=== PATIENT | male | born 1945 | race Caucasian/White ===

== ENCOUNTER 2019-05-16 10:32 | Outpatient (RCR) | payer MEDICARE, OTHER | END 2019-08-14 | disposition home or self-care (01) | LOC: ONC 10:32 | PROVIDERS: ATTEND Radiology Radiation Oncology | DX: C61 Malignant neoplasm of prostate (principal) | CPT/HCPCS: 76873; 99205 ==

== ENCOUNTER 2019-10-08 05:33 | Outpatient (RCR) | payer MEDICARE, OTHER ==
[~2019-10-08] VITALS: Ht 177.8 cm; Wt 106.8 kg
[~2019-10-08 05:33] MED LIST: ALLO100T PO; ASPI-586 PO; ATOR40TA70 PO; CHOL100048 PO; CYAN250010 PO; LISI10TA2 PO; MULT-1104 PO; OMEG100032 PO; OMEP20TA7 PO
[2019-10-10] MEDS ORDERED: CIPR-226 PO (11:05)
[2019-10-10] MEDS ORDERED: ACET1TAB43 PO (11:05)
== END 2019-10-08 10:13 | disposition home or self-care (01) ==
LOC: PREOP 05:33
PROVIDERS: ATTEND Radiology Radiation Oncology
DX: Z01.818 Encounter for other preprocedural examination (principal); Z01.812 Encounter for preprocedural laboratory examination; C61 Malignant neoplasm of prostate; Z20.828 Contact with and (suspected) exposure to other viral communicable diseases
CPT/HCPCS: 87635

== ENCOUNTER 2019-10-10 10:30 | Day surgery (SDC) | payer MEDICARE, OTHER ==
[~2019-10-10] VITALS: Ht 177.8 cm; Wt 106.8 kg
[2019-10-10] VITALS (11 sets, daily range): BP systolic 123–149; BP diastolic 71–85
[2019-10-10] MEDS ORDERED: LEVOFLOXACIN 500 MG/100 ML IV 100 ML IV ONE (10:45)
--- NOTE | 2019-10-10 11:00 | Progress Note-Pre Operative ---
Pre-Operative Progress Note H&P Reviewed The H&P was reviewed, patient examined and no changes noted. Date Seen by Provider: Oct 10, 2019 Time Seen by Provider: 10:59 Date H&P Reviewed: Oct 10, 2019 Time H&P Reviewed: :59 Pre-Operative Diagnosis: Prostate cancer cT1c, PSA 3.97, [place] 7 (3+4) JOANN ALVAREZ MD Oct 10, 2019 11:00
[2019-10-10] MEDS ORDERED: ACET1TAB43 PO (11:05)
[2019-10-10] MEDS ORDERED: CIPR-226 PO (11:05)
--- NOTE | 2019-10-10 11:07 | Discharge Inst-Simple/Standard ---
Discharge Inst-Standard Reconcile Patient Problems Problems Reviewed?: Yes Discharge Medications New, Converted or Re-Newed RX: RX Given to Pt/Family Patient Instructions/Follow Up Plan of Care/Instructions/FU: 1) post implant scan at [facility] in cancer center on 11/08/19 at 10:30 a.m. 2) follow up iwht Dr. Guerra 11/13/19 at 11:15 a.m. Activity as Tolerated: Yes Discharge Diet: No Restrictions Other Inst to Patient Please instruct patient on orozco catheter removal. Date of removal to be determined by Dr. Florence. JOANN ALVAREZ MD Oct 10, 2019 11:07
[2019-10-10] MEDS ORDERED: MIDAZOLAM 2 MG/2 ML (VERSED) VIAL ONE (11:24)
[2019-10-10] MEDS ORDERED: proPOfol 200 MG/20 ML (DIPRIVAN) VIAL IV ONE ×2 (11:24→13:44)
[2019-10-10] MEDS ORDERED: ONDANSETRON 4 MG/2 ML (SDV) Z0FRAN ONE (11:24)
[2019-10-10] MEDS ORDERED: DEXAMETHASONE 10 MG/ML (DECADRON) 1 ML VIAL ONE (11:24)
[2019-10-10] MEDS ORDERED: fentaNYL INJECTION 100 MCG/2 ML AMP ONE (11:24)
[2019-10-10] MEDS ORDERED: LIDOCAINE PF 2% 5 ML (XYLOCAINE) VIAL ONE (11:24)
[2019-10-10] MEDS ORDERED: SEVOFLURANE (ULTANE) 15 ML INHAL SOLN ONE ×5 (11:24→13:43)
[2019-10-10] MEDS: LACTATED RINGERS 1,000 ML IV PRN ×2 (11:51→13:13)
--- OUTSIDE RECORDS SUMMARY | 2019-10-10 11:55 | XMS REPORT | CCD ---
Author Author HELADIO VILLALOBOS JR Organization Unknown Address [address] [place] [address] Care Team Providers Care Central Supply Aide Name Role Phone ROSA HYDE, KAREN SANTANA Attphys Allergies Allergy Code Allergy Type Reaction Status No Known Drug Allergies 0 Drug allergy Active Active Medications Unknown or Not Available. Problems Unknown or Not Available. Procedures Procedure Code Procedure Type Date Arthrs kne surg w/meniscectomy med/lat w/shvg; (-RT Ri ght side of body) 79922 CPT 09/10/2016 Results Unknown or Not Available. Function Status Unknown or Not Available. History of Immunizations Immunization Code Date Tdap 115 01/06/2015 zoster 121 12/04/2013 Pneumococcal conjugate PCV 13 133 12/26 Influenza, high dose seasonal 135 11/26 Influenza, high dose seasonal 135 /0 11/2013 Influenza, high dose seasonal 135 12/26 Plan of Treatment Unknown or Not Available. Social History Smoking Status Code Start Date End Date Never smoker [id number] Vital Signs Vital Sign Value Unit Date/Time Recent/I nitial? BMI (Body Mass Index) 33.47 kg/m2 09/09/2016 10 :21 Initial VS Weight Measured 240 [lb_av] 09/09/2016 10:21 Initial VS Height 71 [in_i] 09/09/2016 10:21 Initi al VS BSA (Body Surface Area) 2.34 m2 09/09/2016 10:21 Initial VS Respiratory Rate 8 /min 09/10/2016 07:54 Initial VS Heart Rate 72 /min 09/10/2016 07:54 I nitial VS O2 % BldC Oximetry 92 % 09/10/2016 07:54 Initial VS BP Systolic 79 mm[Hg] 09/10/2016 07:55 Initial VS BP Diastolic 45 mm[Hg] 09/10/2016 07:55 Initial VS BP Systolic 105 mm[Hg] 09/10/2016 08:37 Most Recent VS BP Diastolic 61 mm[Hg] 09/10/2016 08:37 Most Recent VS Respiratory Rate 16 /min 09/10/2016 08:37 Most Recent VS Heart Rate 66 /min 09/10/2016 08:37 M ost Recent VS O2 % BldC Oximetry 97 % 09/10/2016 08:37 Most Recent VS Function Status Unknown or Not Available. Goals Unknown or Not Available. ASSESSMENTS Unknown or Not Available. Health Concerns Section Unknown or Not Available.
--- OUTSIDE RECORDS SUMMARY | 2019-10-10 11:56 | XMS REPORT ---
Author Author Shahbaz MANZANARES Organization [facility] Address [address] [place] [id number] Care Team Providers Care Diplomatic Officer Name Role Phone DILMA MANZANARES PCP Tomy Rosado PreferredProvider Allergies and Adverse Reactions Name Reaction Notes NO KNOWN DRUG ALLERGIES Plan of Treatment Planned Activity Comments Planned Date Planned Time Plan/Goal BASIC METABOLIC PANEL 03/30/2016 12:00 AM URIC ACID. 03/30/2016 12:00 AM URIC ACID. 03/30/2016 12:00 AM Basic metabolic panel 06/29/2013 12:00 AM URINALYSIS W/MICRO C&S IF IND 07/05/2019 12:00 AM Medications Active Name Start Date Estimated Completion Date SIG Co mments aspirin 81 mg oral tablet,delayed release (DR/EC) take 1 tablet (81 mg) by oral route once daily allopurinol 100 mg oral tablet 03/23/2018 TAKE 1 TAB LET BY MOUTH EVERY DAY lisinopril 10 mg oral tablet 03/23/2018 TAKE 1 TABLE T BY MOUTH EVERY DAY lisinopril 10 mg oral tablet 04/16/2019 TAKE 1 TABLE T BY MOUTH EVERY DAY atorvastatin 20 mg oral tablet 05/14/2019 T BROOKS 1 TABLET BY MOUTH EVERY NIGHT AT BEDTIME allopurinol 100 mg oral tablet 06/12/2019 TAKE 1 TAB LET BY MOUTH EVERY DAY Cipro 500 mg oral tablet 07/05/2019 07/15/2019 take 1 tablet (500 mg) by oral route 2 times per day for 10 days Name Start Date Expiration Date SIG Comments Shingles Vaccine 10/03/2009 10/04/2009 may administer shingles vaccine azithromycin 500 mg oral tablet 12/23/2010 12/30/2010 take 1 tablet (500 mg) by oral route once daily for 7 days Bactrim DS 800-160 mg oral tablet 04/20/2011 04/27/2011 take 1 tablet by oral route every 12 hours for 7 days triamcinolone acetonide 0.1 % topical cream 10/28/20112011 apply a thin layer to the affected area(s) by topical route 2 times per day Zithromax Z-Faisal 250 mg oral tablet 03/30/2012 04/04/2012 take 2 tablets (500 mg) by oral route once daily for 1 day then 1 tablet (250 mg) by oral route once daily for 4 days amoxicillin 500 mg oral capsule 07/29/2014 08/08/2014 take 1 capsule (500 mg) by oral route 3 times per day for 10 days Medrol (Faisal) 4 mg oral tablets,dose pack 07/29/2014 take as directed Zithromax Z-Faisal 250 mg oral tablet 12/30/2014 01/04/2015 take 2 tablets (500 mg) by oral route once daily for 1 day then 1 tablet (250 mg) by oral route once daily for 4 days amoxicillin 875 mg oral tablet 03/13/2017 t brooks 1 tablet (875 mg) by oral route every 12 hours for 10 days Tessalon Perles 100 mg oral capsule 03/13/2017 take 1 capsule (100 mg) by oral route 3 times per day as needed for cough Medrol (Faisal) 4 mg oral tablets,dose pack 03/13/2017 take as directed tamsulosin 0.4 mg oral capsule,extended release 24hr 06/22/2017 take 1 capsule (0.4 mg) by oral route once daily 1/2 hour following the same meal each day for 30 days omeprazole 20 mg oral tablet,delayed release (DR/EC) 07/18/2018 08/01/2018 take 1 tablet by oral route 2 times a day for 14 days amoxicillin 500 mg oral capsule 07/18/2018 08/01/2018 take 1 capsule (500 mg) by oral route every 12 hours for 14 days clarithromycin 500 mg oral tablet 07/18/2018 08/01/2018 take 1 tablet (500 mg) by oral route every 12 hours for 14 days Cipro 500 mg oral tablet 10/12/2018 10/14/2018 take 1 tablet (500 mg) by oral route 2 times per day for 2 days Discontinued Name Start Date Discontinued Date SIG Comments Benicar HCT 40-25 mg oral tablet 09/07/2009 10/03/2009 take 1 tablet by oral route once daily for 90 days ibuprofen 200 mg oral tablet 10/28/2011 prn aspirin 325 mg oral tablet 10/03/2009 05/02/2013 take 1 tablet by oral route daily hydrocodone-acetaminophen 10-500 mg oral tablet 10/28/19 12 03/29 to 1 q4h prn Doc-Q-Lace 100 mg oral capsule 10/28/2011 t brooks 1 capsule (100 mg) by oral route 2 times per day as needed Benicar 40 mg oral tablet 10/03/2009 10/24/2009 take 1 tablet (40 mg) by oral route once daily atenolol-chlorthalidone 50-25 mg oral tablet 10/24/200910/27 take 1 tablet by oral route once daily Medrol (Faisal) 4 mg oral tablets,dose pack 03/30/2012 04/23/2013 take as directed Sunscreen SPF 30 05/06/2014 07/29/2014 apply q2h while outdoors, q1h if swimming or sweating Vaseline 05/06/2014 07/29/2014 apply to treated areas Lipitor 20 mg oral tablet 01/02/2015 03/26/2016 TAKE 1 TABLET (20 MG) BY ORAL ROUTE ONCE DAILY AT BEDTIME duplicate Problem List Description Status Onset Arthritis unspecified Active Atrial Septal Defect, Ostium Secundum Type Active Benign Hypertrophy of Prostate (BPH) Active Cardiomegaly Active degenerative disk disease Active Hypertension, Benign Essential Active lumbar back pain Active 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 Venous insufficiency Active Gout Active Malignant melanoma of skin; site unspecified Active 05/10/2013 Diabetes Mellitus, Type II Active 12/19/2013 Benign Neoplasm Of Skin Of Lower Limb Active Actinic keratosis Active 05/06/2014 Seborrheic keratoses Active 05/06/2014 Benign neoplasm of skin of back Active 05/06/19 15 Benign Neoplasm Of Scalp Active 05/06/2014 Scar Active 05/06/2014 Lipoma Active 05/14/2014 Lentigo Active 12/13/2014 Dyspepsia Active 07/04/2018 Dysphagia Active 07/04/2018 Colon cancer screening Active 07/04/2018 Vital Signs Date Time BP-Sys(mm[Hg] BP-Sowmya(mm[Hg]) HR(bpm) RR(rpm) Temp WT HT HC BMI BSA BMI Percentile O2 Sat(%) 03/12/2019 9:13:00 AM 124 mm[Hg] 86 mm[Hg] 76 {beats}/min 18 rpm 97.7 F 252 lbs 70 in 36.1579 kg/m2 2.376 m2 96 % 02/20/2019 11:47:00 AM 130 mm[Hg] 57 mm[Hg] 65 {beats}/min 20 rpm 97.6 F 252 lbs 70 in 36.16 kg/m2 2.38 m2 01/12/2019 2:10:00 PM 123 mm[Hg] 74 mm[Hg] 86 {beats}/min 20 rpm 97.2 F 247 lbs 70 in 35.4404 kg/m2 2.3523 m2 01/09/2019 2:24:00 PM 120 mm[Hg] 76 mm[Hg] 100 {beats}/min 18 rpm 97.5 F 247 lbs 71 in 34.45 kg/m2 2.37 m2 96 % 12/28/2018 9:36:00 AM 128 mm[Hg] 74 mm[Hg] 99 {beats}/min 18 rpm 97.3 F 255.5 lbs 71 in 35.6347 kg/m2 2.4095 m2 98 % 10/24/2018 3:00:00 PM 130 mm[Hg] 88 mm[Hg] 111 {beats}/min 18 rpm 97.8 F 275 lbs 71 in 38.35 kg/m2 2.50 m2 96 % 10/12/2018 10:22:00 AM 130 mm[Hg] 78 mm[Hg] 98 {beats}/min 18 rpm 98.2 F 275 lbs 71 in 38.3543 kg/m2 2.4997 m2 96 % 10/02/2018 9:56:00 AM 116 mm[Hg] 72 mm[Hg] 85 {beats}/min 18 rpm 97.7 F 275 lbs 71 in 38.35 kg/m2 2.50 m2 94 % 07/04/2018 2:26:00 PM 124 mm[Hg] 65 mm[Hg] 81 {beats}/min 20 rpm 97.4 F 275 lbs 71 in 38.35 kg/m2 2.50 m2 03/27/2018 4:03:00 PM 135 mm[Hg] 82 mm[Hg] 82 {beats}/min 18 rpm 97.5 F 277.125 lbs 71 in 38.6507 kg/m2 2.5094 m2 95 % 03/23/2018 8:14:00 AM 122 mm[Hg] 68 mm[Hg] 64 {beats}/min 18 rpm 98.2 F 274 lbs 70 in 39.31 kg/m2 2.48 m2 97 % 08/30/2017 11:15:00 AM 122 mm[Hg] 82 mm[Hg] 67 {beats}/min 18 rpm 98.1 F 254.375 lbs 70 in 36.4986 kg/m2 2.3872 m2 96 % 07/13/2017 9:02:00 AM 118 mm[Hg] 68 mm[Hg] 95 {beats}/min 18 rpm 98.1 F 267 lbs 70 in 38.31 kg/m2 2.45 m2 95 % 06/01/2017 3:07:00 PM 128 mm[Hg] 82 mm[Hg] 65 {beats}/min 18 rpm 266.25 lbs 70 in 38.2025 kg/m2 2.4423 m2 95 % 03/31/2017 9:58:00 AM 133 mm[Hg] 68 mm[Hg] 64 {beats}/min 18 rpm 97.8 F 263.5 lbs 70 in 37.81 kg/m2 2.43 m2 96 % 03/13/2017 1:17:00 PM 130 mm[Hg] 60 mm[Hg] 96 {beats}/min 98.5 F 266 lbs 94 % 03/26/2016 8:16:00 AM 132 mm[Hg] 72 mm[Hg] 72 {beats}/min 18 rpm 97.4 F 240.375 lbs 70 in 34.49 kg/m2 2.32 m2 98 % 12/30/2014 8:49:00 AM 124 mm[Hg] 74 mm[Hg] 56 {beats}/min 18 rpm 96.9 F 234.125 lbs 70 in 33.5931 kg/m2 2.2902 m2 97 % 12/25/2014 8:54:00 AM 112 mm[Hg] 65 mm[Hg] 76 {beats}/min 16 rpm 98.1 F 231 lbs 70 in 33.14 kg/m2 2.27 m2 12/11/2014 1:19:00 PM 111 mm[Hg] 67 mm[Hg] 73 {beats}/min 18 rpm 98.4 F 232 lbs 70 in 33.2882 kg/m2 2.2798 m2 07/29/2014 9:01:00 AM 119 mm[Hg] 71 mm[Hg] 53 {beats}/min 20 rpm 97.4 F 232.4 lbs 71 in 32.41 kg/m2 2.30 m2 96 % 05/28/2014 9:34:00 AM 124 mm[Hg] 76 mm[Hg] 62 {beats}/min 20 rpm 97.4 F 233 lbs 71 in 32.4966 kg/m2 2.3009 m2 05/14/2014 2:53:00 PM 108 mm[Hg] 69 mm[Hg] 76 {beats}/min 16 rpm 98.3 F 235.312 lbs 71 in 32.82 kg/m2 2.31 m2 05/06/2014 9:27:00 AM 136 mm[Hg] 68 mm[Hg] 18 rpm 97.9 F 05/02/2014 2:53:00 PM 108 mm[Hg] 78 mm[Hg] 81 {beats}/min 16 rpm 97.7 F 253 lbs 71 in 35.286 kg/m2 2.3977 m2 97 % 12/19/2013 9:47:00 AM 130 mm[Hg] 70 mm[Hg] 64 {beats}/min 18 rpm 97.4 F 253.375 lbs 71 in 35.34 kg/m2 2.40 m2 98 % 08/24/2013 10:04:00 AM 122 mm[Hg] 78 mm[Hg] 60 {beats}/min 16 rpm 97.5 F 265 lbs 71 in 36.9596 kg/m2 2.4539 m2 08/10/2013 12:58:00 PM 132 mm[Hg] 75 mm[Hg] 65 {beats}/min 18 rpm 98 F 260.312 lbs 71 in 36.31 kg/m2 2.43 m2 05/18/2013 11:02:00 AM 16 rpm 98 F 264 lbs 71 in 36.8201 kg/m2 2.4492 m2 05/02/2013 10:22:00 AM 130 mm[Hg] 80 mm[Hg] 80 {beats}/min 16 rpm 98.3 F 269 lbs 71 in 37.52 kg/m2 2.47 m2 04/23/2013 2:13:00 PM 130 mm[Hg] 66 mm[Hg] 69 {beats}/min 18 rpm 97.8 F 270.375 lbs 71 in 37.7093 kg/m2 2.4786 m2 97 % 10/28/2011 3:18:00 PM 148 mm[Hg] 72 mm[Hg] 68 {beats}/min 18 rpm 98.9 F 276.125 lbs 71 in 38.51 kg/m2 2.50 m2 04/20/2011 4:19:00 PM 136 mm[Hg] 74 mm[Hg] 68 {beats}/min 18 rpm 97.5 F 257.375 lbs 71 in 35.8962 kg/m2 2.4183 m2 02/04/2011 3:15:00 PM 128 mm[Hg] 90 mm[Hg] 69 {beats}/min 97.9 F 2 60.25 lbs 96 % 12/23/2010 10:25:00 AM 125 mm[Hg] 80 mm[Hg] 72 {beats}/min 97.7 F 263 lbs 96 % 11/19/2010 11:08:00 AM 130 mm[Hg] 90 mm[Hg] 92 {beats}/min 18 rpm 97.8 F 255.125 lbs 96 % 11/12/2010 10:37:00 AM 152 mm[Hg] 90 mm[Hg] 84 {beats}/min 98.3 F 256 lbs 10/22/2010 10:35:00 AM 125 mm[Hg] 70 mm[Hg] 68 {beats}/min 18 rpm 97.8 F 252.375 lbs 71 in 35.1988 kg/m2 2.3947 m2 97 % 07/27/2010 10:12:00 AM 150 mm[Hg] 90 mm[Hg] 61 {beats}/min 18 rpm 98 F 259 lbs 70 in 37.16 kg/m2 2.41 m2 96 % 01/26/2010 1:54:00 PM 120 mm[Hg] 80 mm[Hg] 58 {beats}/min 18 rpm 97.6 F 272.125 lbs 70 in 39.0455 kg/m2 2.4691 m2 96 % 10/28/2009 1:42:00 PM 110 mm[Hg] 78 mm[Hg] 61 {beats}/min 18 rpm 97.3 F 262.5 lbs 70 in 37.66 kg/m2 2.43 m2 95 % 10/24/2009 1:24:00 PM 120 mm[Hg] 88 mm[Hg] 96 {beats}/min 20 rpm 98 F 258.5 lbs 70 in 37.0905 kg/m2 2.4065 m2 95 % 10/03/2009 2:24:00 PM 120 mm[Hg] 90 mm[Hg] 90 {beats}/min 20 rpm 98.6 F 255.5 lbs 70 in 36.66 kg/m2 2.39 m2 96 % 09/05/2009 8:34:00 AM 110 mm[Hg] 76 mm[Hg] 68 {beats}/min 18 rpm 26 7 lbs 70 in 38.3101 kg/m2 2.4457 m2 Social History Name Description Comments Alcohol Use - Rare 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, 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 Tobacco Never smoker History of Procedures Date Ordered Description Order Status 12/30/2014 12:00 AM COMPLETE CBC W/AUTO DIFF WBC Reviewed 12/30/2014 12:00 AM COMPREHEN METABOLIC PANEL Reviewed 12/30/2014 12:00 AM LIPID PANEL Reviewed 12/30/2014 12:00 AM GLYCOSYLATED HEMOGLOBIN TEST Reviewed 12/30/2014 12:00 AM ASSAY OF BLOOD/URIC ACID Reviewed 01/06/2015 12:00 AM Fluzone MEDICARE Only Reviewed 01/06/2015 12:00 AM TDAP VACCINE 7 YRS/> IM Reviewed 03/26/2016 12:00 AM COMPREHEN METABOLIC PANEL Reviewed 03/26/2016 12:00 AM LIPID PANEL Reviewed 03/26/2016 12:00 AM GLYCOSYLATED HEMOGLOBIN TEST Reviewed 03/26/2016 12:00 AM ASSAY OF PSA TOTAL Reviewed 03/26/2016 12:00 AM ASSAY OF BLOOD/URIC ACID Reviewed 03/26/2016 12:00 AM ASSAY OF URINE/URIC ACID Reviewed 03/26/2016 12:00 AM ALBUMIN URINE MICROALBUMIN QUANTIATIVE R eviewed 11/19/2010 12:00 AM DRAIN/INJ JOINT/BURSA W/O US Reviewed 03/31/2017 12:00 AM COMPLETE CBC W/AUTO DIFF WBC Reviewed 03/31/2017 12:00 AM COMPREHEN METABOLIC PANEL Reviewed 03/31/2017 12:00 AM LIPID PANEL Reviewed 03/31/2017 12:00 AM GLYCOSYLATED HEMOGLOBIN TEST Reviewed 03/31/2017 12:00 AM ASSAY OF PSA TOTAL Reviewed 03/31/2017 12:00 AM ASSAY OF BLOOD/URIC ACID Reviewed 03/31/2017 12:00 AM ASSAY OF URINE/URIC ACID Reviewed 06/01/2017 12:00 AM URINALYSIS AUTO W/SCOPE Reviewed 06/01/2017 12:00 AM ASSAY OF PSA TOTAL Reviewed 06/07/2017 12:[address] ABD & PELV 1/> REGNS Reviewed 06/07/2017 12:00 AM METABOLIC PANEL TOTAL CA Reviewed 06/22/2017 12:00 AM CYSTOSCOPY Reviewed 06/22/2017 12:00 AM RADEX ABDOMEN 1 ANTEROPOSTERIOR VIEW Rev iewed 07/13/2017 12:00 AM URINALYSIS AUTO W/SCOPE Reviewed 03/23/2018 12:00 AM COMPLETE CBC W/AUTO DIFF WBC Reviewed 03/23/2018 12:00 AM COMPREHEN METABOLIC PANEL Reviewed 03/23/2018 12:00 AM LIPID PANEL Reviewed 03/23/2018 12:00 AM GLYCOSYLATED HEMOGLOBIN TEST Reviewed 03/23/2018 12:00 AM ASSAY OF BLOOD/URIC ACID Reviewed 09/27/2018 12:00 AM ASSAY OF PSA TOTAL Reviewed 10/02/2018 12:00 AM ExoDx Prostate (IntelliScore) Reviewed 10/02/2018 12:00 AM US EXAM ABDO BACK WALL COMP Reviewed 10/12/2018 12:00 AM URINALYSIS AUTO W/SCOPE Reviewed 10/17/2018 12:00 AM US TRANSRECTAL Reviewed 10/17/2018 12:00 AM US TRANSRECTAL Reviewed 01/24/2019 12:00 AM ASSAY OF PSA TOTAL Reviewed 10/24/2018 12:00 AM MRI PELVIS W/O & W/DYE Reviewed 04/23/2013 12:00 AM COMPLETE CBC W/AUTO DIFF WBC Reviewed 04/23/2013 12:00 AM COMPREHEN METABOLIC PANEL Reviewed 04/23/2013 12:00 AM LIPID PANEL Reviewed 04/23/2013 12:00 AM ASSAY OF BLOOD/URIC ACID Reviewed 12/28/2018 12:00 AM ASSAY OF TOTAL THYROXINE Returned 12/28/2018 12:00 AM ASSAY THYROID STIM HORMONE Returned 12/28/2018 12:00 AM ASSAY OF THYROID (T3 OR T4) Returned 12/28/2018 12:00 AM US EXAM OF HEAD AND NECK Returned 01/12/2019 12:00 AM FNA W/IMAGE Reviewed 08/10/2013 12:00 AM EXC TR-EXT B9+CHEO 2.1-3CM/< Reviewed 08/10/2013 12:00 AM INTMD RPR S/A/T/EXT 2.5 CM/< Reviewed 10/03/2009 12:00 AM GLUCOSE TOLERANCE TEST (GTT) Reviewed 10/03/2009 12:00 AM ELECTROCARDIOGRAM REPORT Reviewed 10/03/2009 12:00 AM TTE W/O DOPPLER COMPLETE Reviewed 10/09/2009 12:00 AM Holter monitoring, 24-hour, continuous computerized monitoring and non-continuous recording, and real-time data analysis utilizing a device capable of producing intermittent full-sized waveform tracings, possibly patient activated; includes monitoring and real-time data analysis with report, physician review and interpretation Reviewed 10/28/2009 12:00 AM DESTRUCT B9 LESION 1-14 Reviewed 10/28/2009 12:00 AM REMOVAL OF SKIN TAGS <W/15 Reviewed 10/28/2009 12:00 AM REMOVE SKIN TAGS ADD-ON Reviewed 01/26/2010 12:00 AM COMPREHEN METABOLIC PANEL Reviewed 01/26/2010 12:00 AM LIPID PANEL Reviewed 01/26/2010 12:00 AM ASSAY OF BLOOD/URIC ACID Reviewed 01/26/2010 12:00 AM FLU VACCINE 3 YRS & > IM Reviewed 01/26/2010 12:00 AM IMMUNIZATION ADMIN Reviewed 07/26/2010 12:00 AM COMPREHEN METABOLIC PANEL Reviewed 07/26/2010 12:00 AM LIPID PANEL Reviewed 07/26/2010 12:00 AM GLYCOSYLATED HEMOGLOBIN TEST Reviewed 07/26/2010 12:00 AM ASSAY OF BLOOD/URIC ACID Reviewed 12/19/2013 12:00 AM COMPLETE CBC W/AUTO DIFF WBC Reviewed 12/19/2013 12:00 AM COMPREHEN METABOLIC PANEL Reviewed 12/19/2013 12:00 AM LIPID PANEL Reviewed 12/19/2013 12:00 AM GLYCOSYLATED HEMOGLOBIN TEST Reviewed 12/19/2013 12:00 AM ASSAY OF BLOOD/URIC ACID Reviewed 05/06/2014 12:00 AM DESTRUCT PREMALG LESION Reviewed 05/06/2014 12:00 AM DESTRUCT PREMALG LES 2-14 Reviewed 05/06/2014 12:00 AM DESTRUCT B9 LESION 1-14 Reviewed 07/27/2010 12:00 AM COMPREHEN METABOLIC PANEL Reviewed 07/27/2010 12:00 AM LIPID PANEL Reviewed 07/27/2010 12:00 AM GLYCOSYLATED HEMOGLOBIN TEST Reviewed 07/27/2010 12:00 AM ASSAY OF BLOOD/URIC ACID Reviewed 07/27/2010 12:00 AM Prostate Cancer Screening Reviewed 10/22/2010 12:00 AM X-RAY EXAM OF SHOULDER Reviewed Results Summary Date and Description Results 01/10/2007 12:00 AM Digital Rectal Exam Done 02/19/2008 12:00 AM Glucose SerPl-mCnc 115.0 mg/ dLHIV1+2 Ab Ser Ql no risk Depression Done 03/15/2008 12:00 AM Colonoscopy-Women and Men ov er 50 Normal 05/30/2009 12:00 AM PSA SerPl-mCnc 1.940 ng/mLCh olest Cry Stone Ql IR 155.0 %LDLc SerPl-mCnc 101.0 mg/dLHDLc SerPl-mCnc 24.0 mg/dLTrigl SerPl-mCnc 126.0 mg/dL 10/02/2009 12:00 AM Glucose SerPl-mCnc 154.0 mg/ dL 10/03/2009 8:46 AM Aspirin reccommended Reccomm ended 10/24/2009 12:00 AM Digital Rectal Exam Done 01/26/2010 9:15 AM URIC ACID 7.7 mg/dLTRIGLYCER IDES 155.0 mg/dLCHOLESTEROL 166.0 mg/dLHDL 28.0 mg/dLTOT CHOL/HDL 5.9 LDL (CALC) 107.0 mg/dLGLUCOSE 132.0 mg/dLSODIUM 133.0 mmol/LPOTASSIUM 3.90 mmol/LCHLORIDE 98.0 mmol/LCO2 27.0 mmol/LBUN 23.0 mg/dLCREATININE 1.10 mg/dLSGOT/AST 22.0 IU/LSGPT/ALT 29.0 IU/LALK PHOS 88.0 IU/LTOTAL PROTEIN 7.40 g/dLALBUMIN 4.10 g/dLTOTAL BILI 0.60 mg/dLCALCIUM 9.40 mg/dLAGE 64 GFR NonAA 68 GFR AA 82 eGFR >60 mL/min/1.73 m2eGFR AA* >60 01/26/2010 1:18 PM Cholest Cry Stone Ql IR 166. 0 %LDLc SerPl-mCnc 107.0 mg/dLGlucose SerPl-mCnc 132.0 mg/dL 07/25/2010 12:00 AM Cholest Cry Stone Ql IR 161. 0 %LDLc SerPl-mCnc 107.0 mg/dLGlucose SerPl-mCnc 116.0 mg/dL 07/25/2010 11:40 AM TRIGLYCERIDES 147.0 mg/dLCHO LESTEROL 161.0 mg/dLHDL 25.0 mg/dLTOT CHOL/HDL 6.4 LDL (CALC) 107.0 mg/dLURIC ACID 7.4 mg/dLGLYCOHEMOGLOBIN A1C 6.60 %GLUCOSE 116.0 mg/dLSODIUM 137.0 mmol/LPOTASSIUM 3.50 mmol/LCHLORIDE 103.0 mmol/LCO2 24.0 mmol/LBUN 29.0 mg/dLCREATININE 1.0 mg/dLSGOT/AST 23.0 IU/LSGPT/ALT 27.0 IU/LALK PHOS 81.0 IU/LTOTAL PROTEIN 7.0 g/dLALBUMIN 4.0 g/dLTOTAL BILI 0.90 mg/dLCALCIUM 9.30 mg/dLAGE 65 GFR NonAA 75 GFR AA 91 eGFR >60 mL/min/1.73 m2eGFR AA* >60 07/27/2010 10:15 AM PSA SerPl-mCnc 0.0 ng/mL 07/27/2010 10:15 AM Abdominal Aortic Aneurysm Re fused 07/27/2010 10:16 AM HIV1+2 Ab Ser Ql no risk Dep ression Done Aspirin reccommended Reccommended 04/24/2013 11:10 AM GLUCOSE 119.0 mg/dLSODIUM 13 8.0 mmol/LPOTASSIUM 4.10 mmol/LCHLORIDE 106.0 mmol/LCO2 23.0 mmol/LBUN 20.0 mg/dLCREATININE 0.80 mg/dLSGOT/AST 23.0 IU/LSGPT/ALT 32.0 IU/LALK PHOS 88.0 IU/LTOTAL PROTEIN 7.20 g/dLALBUMIN 4.0 g/dLTOTAL BILI 1.40 mg/dLCALCIUM 9.60 mg/dLAGE 68 GFR NonAA 96 GFR AA 116 eGFR >60 mL/min/1.73 m2eGFR AA* >60 URIC ACID 6.9 mg/dLTRIGLYCERIDES 100.0 mg/dLCHOLESTEROL 163.0 mg/dLHDL 33.0 mg/dLTOT CHOL/HDL 4.9 LDL (CALC) 110.0 mg/dL 04/24/2013 11:20 AM WBC 6.5 RBC 4.70 HGB 15.80 g /dLHCT 45.90 %MCV 98.0 fLMCH 33.60 pgMCHC 34.40 g/dLRDW SD 47 RDW CV 13.10 %MPV 10.60 fLPLT 203 NRBC# 0.00 NRBC% 0.0 %NEUT 61.50 %%LYMP 29.30 %%MONO 7.40 %%EOS 1.50 %%BASO 0.30 %#NEUT 3.99 #LYMP 1.90 #MONO 0.48 #EOS 0.10 #BASO 0.02 MANUAL DIFF NOT IND 12/19/2013 11:36 AM WBC 4.2 RBC 4.90 HGB 16.40 g /dLHCT 46.30 %MCV 95.0 fLMCH 33.50 pgHC 35.40 g/dLRDW SD 44 RDW CV 12.80 %MPV 11.70 fLPLT 218 NRBC# 0.00 NRBC% 0.0 %NEUT 59.40 %%LYMP 28.60 %%MONO 9.20 %%EOS 1.90 %%BASO 0.90 %#NEUT 2.51 #LYMP 1.21 #MONO 0.39 #EOS 0.08 #BASO 0.04 MANUAL DIFF NOT IND GLUCOSE 113.0 mg/dLSODIUM 137.0 mmol/LPOTASSIUM 4.30 mmol/LCHLORIDE 104.0 mmol/LCO2 25.0 mmol/LBUN 13.0 mg/dLCREATININE 0.80 mg/dLSGOT/AST 49.0 IU/LSGPT/ALT 55.0 IU/LALK PHOS 83.0 IU/LTOTAL PROTEIN 7.40 g/dLALBUMIN 4.10 g/dLTOTAL BILI 1.20 mg/dLCALCIUM 9.50 mg/dLAGE 68 GFR NonAA 96 GFR AA 116 eGFR 60 eGFR AA* 60 URIC ACID 7.4 mg/dLTRIGLYCERIDES 126.0 mg/dLCHOLESTEROL 139.0 mg/dLHDL 25.0 mg/dLTOT CHOL/HDL 5.6 LDL (CALC) 89.0 mg/dLHGB A1C 6.20 %Est Avg Glucose 131.2 mg/dL 05/06/2014 7:43 AM Site of melanoma R chest wal l Type of Melanoma Superficial spreading in situ Date of biopsy . Date of excision 05/02/13 Date of SLNB N/A Date of PET or CT Scan N/A Breslow thickness not reported Tumor inv by ulcer CAP prot not reported Mitotic index CAP prot not reported Jarrod level not reported Microsatellitosis not reported Angiolymphatic invasion not reported Tumor regression CAP prot not reported AJCC Staging Stage 0 05/06/2014 7:45 AM Biopsy Number N/A Biopsy Michael e N/A Specimen Number N/A Specimen site R chest wall Diagnosis melanoma in situ Treatment Excision - Bouman Tx Date 05/02/13 Cancer Stage Stage 0 12/30/2014 9:18 AM WBC 7.6 RBC 4.63 HGB 15.50 g /dLHCT 45.50 %MCV 98.0 fLMCH 33.50 pgMCHC 34.10 g/dLRDW SD 47 RDW CV 13.0 %MPV 11.0 fLPLT 206 NRBC# 0.00 NRBC% 0.0 %NEUT 65.60 %%LYMP 23.90 %%MONO 7.90 %%EOS 2.20 %%BASO 0.40 %#NEUT 4.98 #LYMP 1.82 #MONO 0.60 #EOS 0.17 #BASO 0.03 MANUAL DIFF NOT IND URIC ACID 6.5 mg/dLGLUCOSE 107.0 mg/dLSODIUM 140.0 mmol/LPOTASSIUM 4.40 mmol/LCHLORIDE 107.0 mmol/LCO2 24.0 mmol/LBUN 17.0 mg/dLCREATININE 0.80 mg/dLSGOT/AST 22.0 IU/LSGPT/ALT 25.0 IU/LALK PHOS 89.0 IU/LTOTAL PROTEIN 6.70 g/dLALBUMIN 3.80 g/dLTOTAL BILI 0.80 mg/dLCALCIUM 9.30 mg/dLAGE 69 GFR NonAA 96 GFR AA 116 eGFR >60 mL/min/1.73 m2eGFR AA* >60 TRIGLYCERIDES 83.0 mg/dLCHOLESTEROL 149.0 mg/dLHDL 28.0 mg/dLTOT CHOL/HDL 5.3 LDL (CALC) 104.0 mg/dLHemoglobin A1c 5.60 %Estim. Avg Glu (eAG) 114 mg/dL 03/26/2016 9:00 AM PSA TOTAL 2.390 ng/mLGLUCOSE 110.0 mg/dLSODIUM 139.0 mmol/LPOTASSIUM 4.50 mmol/LCHLORIDE 107.0 mmol/LCO2 25.0 mmol/LBUN 32.0 mg/dLCREATININE 1.0 mg/dLSGOT/AST 21.0 IU/LSGPT/ALT 24.0 IU/LALK PHOS 80.0 IU/LTOTAL PROTEIN 6.90 g/dLALBUMIN 3.90 g/dLTOTAL BILI 0.80 mg/dLCALCIUM 9.30 mg/dLAGE 70 GFR NonAA 74 GFR AA 90 eGFR >60 mL/min/1.73 m2eGFR AA* >60 URIC ACID 8.0 mg/dLMICROALBUMIN UR 12.0 ug/mLTRIGLYCERIDES 60.0 mg/dLCHOLESTEROL 118.0 mg/dLHDL 37.0 mg/dLTOT CHOL/HDL 3.2 LDL (CALC) 69.0 mg/dLHGB A1C 5.60 %Est Avg Glucose 114.0 mg/dL 03/31/2017 11:05 AM PSA TOTAL 5.150 ng/mLHGB A1C 5.70 %Est Avg Glucose 116.9 mg/dLWBC 6.0 RBC 4.97 HGB 16.70 g/dLHCT 47.60 %MCV 96.0 fLMCH 33.60 pgMCHC 35.10 g/dLRDW SD 43 RDW CV 12.20 %MPV 9.70 fLPLT 203 NRBC# 0.00 NRBC% 0.0 %NEUT 65.80 %%LYMP 21.50 %%MONO 9.0 %%EOS 2.20 %%BASO 1.0 %#NEUT 3.95 #LYMP 1.29 #MONO 0.54 #EOS 0.13 #BASO 0.06 MANUAL DIFF NOT IND TRIGLYCERIDES 73.0 mg/dLCHOLESTEROL 118.0 mg/dLHDL 32.0 mg/dLTOT CHOL/HDL 3.7 LDL (CALC) 71.0 mg/dLGLUCOSE 114.0 mg/dLSODIUM 140.0 mmol/LPOTASSIUM 4.30 mmol/LCHLORIDE 108.0 mmol/LCO2 23.0 mmol/LBUN 17.0 mg/dLCREATININE 0.80 mg/dLSGOT/AST 22.0 IU/LSGPT/ALT 26.0 IU/LALK PHOS 79.0 IU/LTOTAL PROTEIN 7.40 g/dLALBUMIN 4.0 g/dLTOTAL BILI 1.0 mg/dLCALCIUM 9.70 mg/dLAGE 71 GFR NonAA 96 GFR AA 116 eGFR >60 mL/min/1.73 m2eGFR AA* >60 URIC ACID 6.0 mg/dL 06/01/2017 4:05 PM PSA TOTAL 3.950 ng/mL 06/01/2017 4:11 PM COLOR YELLOW APPEARANCE GABY R SPEC GRAV 1.025 pH 6.0 PROTEIN NEGATIVE GLUCOSE NEGATIVE mg/dLKETONE NEGATIVE BILIRUBIN NEGATIVE BLOOD SMALL NITRITE NEGATIVE LEUK SCREEN NEGATIVE WBC/HPF 0-5 RBC/HPF 5-10 CASTS/LPF NEGATIVE /LPFCRYSTALS NEGATIVE MUCOUS THRDS NEGATIVE BACTERIA NEGATIVE EPITH CELLS FEW SQUAMOUS /HPFTRICHOMONAS NEGATIVE YEAST NEGATIVE CULT SET UP? NO 06/22/2017 6:55 AM GLUCOSE 114.0 mg/dLSODIUM 14 0.0 mmol/LPOTASSIUM 4.10 mmol/LCHLORIDE 107.0 mmol/LCO2 22.0 mmol/LBUN 19.0 mg/dLCREATININE 0.80 mg/dLCALCIUM 9.0 mg/dLAGE 72 GFR NonAA 95 GFR AA 115 eGFR >60 mL/min/1.73 m2eGFR AA* >60 07/13/2017 10:45 AM COLOR YELLOW APPEARANCE GABY R SPEC GRAV 1.020 pH 6.0 PROTEIN NEGATIVE GLUCOSE NEGATIVE mg/dLKETONE NEGATIVE BILIRUBIN NEGATIVE BLOOD SMALL NITRITE NEGATIVE LEUK SCREEN NEGATIVE WBC/HPF 0-5 RBC/HPF 4-10 CASTS/LPF NEGATIVE /LPFCRYSTALS NEGATIVE MUCOUS THRDS FEW BACTERIA FEW EPITH CELLS NEGATIVE /HPFTRICHOMONAS NEGATIVE YEAST NEGATIVE CULT SET UP? NO 03/23/2018 8:45 AM HGB A1C 5.80 %Est Avg Glucos e 119.8 URIC ACID 6.5 WBC 6.2 RBC 4.59 HGB 15.50 g/dLHCT 44.60 %MCV 97.0 fLMCH 33.80 pgMCHC 34.80 g/dLRDW SD 46 fLRDW CV 12.90 %MPV 10.30 fLPLT 202 NRBC# 0.00 NRBC% 0.0 %NEUT 62.6 %LYMP 24.8 %MONO 8.8 %EOS 2.1 %BASO 0.6 #NEUT 3.90 #LYMP 1.55 #MONO 0.55 #EOS 0.13 #BASO 0.04 MANUAL DIFF NOT IND TRIGLYCERIDES 67 CHOLESTEROL 105.0 mg/dLHDL 33 TOT CHOL/HDL 3.2 LDL (CALC) 59 GLUCOSE 128 SODIUM 139 POTASSIUM 4.2 CHLORIDE 107.0 mmol/LCO2 24 BUN 20.0 mg/dLCREATININE 0.80 mg/dLSGOT/AST 21 SGPT/ALT 20 ALK PHOS 74 TOTAL PROTEIN 6.7 ALBUMIN 3.9 TOTAL BILI 0.8 CALCIUM 9.40 mg/dLAGE 72 GFR NonAA 95 GFR AA 115 eGFR 95 eGFR AA* >60 mL/min/1.73 m2 09/27/2018 2:23 PM PSA TOTAL 5.28 10/12/2018 11:46 AM COLOR Yellow CLARITY Clear S PEC GRAV 1.023 pH 6.5 PROTEIN 10 GLUCOSE Normal KETONE Negative BILIRUBIN Negative BLOOD Negative NITRITE Negative LEUK SCREEN 25 RBC/HPF 0-3 WBC/HPF 6-10 BACTERIA/HPF None Seen SQUAMOUS EPI/LPF Few MUCOUS/LPF Few CULT SET UP? YES 12/28/2018 10:18 AM PSA TOTAL 3.97 History Of Immunizations Name Date Admin Mfg Name Mfg Code Trade Name Lot# Route Inj Vis Given Vis Pub CVX Influenza 01/09/2008 Not Entered NE Not Entered Not Entered Not Entered 03/28/2019 03/28/2019 999 Td 10/07/1999 sanofi pasteur PMC DECAVAC Intramuscular Not E ntered 03/28/2019 03/28/2019 999 Influenza 01/26/2010 sanofi pasteur PMC Fluzone > 12 Years [id number] In tramuscular Left Deltoid 01/26/2010 11/05/2008 999 Tdap 01/06/2015 [employer]ax[employer]old[employer] SKB BOOSTRIX [id number] Intramuscula r Right Deltoid 01/06/2015 08/03/2012 115 History of Past Illness Name Date of Onset Comments lumbar back pain degenerative disk disease Hypertension, Benign Essential Venous insufficiency Benign Hypertrophy of Prostate (BPH) 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 Cardiomegaly Atrial Septal Defect, Ostium Secundum Type Gout Arthritis unspecified Neuropathy left hang Essential Hypertension Sep 05 2009 8:36AM Low Back Pain Sep 05 2009 8:36AM Myalgia Sep 05 2009 8:36AM Venous Insufficiency Sep 05 2009 8:36AM Syncope And Collapse Oct 03 2009 2:56PM Hyperglycemia Oct 03 2009 2:56PM Chest Pain Oct 03 2009 2:56PM Palpitations Oct 09 2009 4:59PM Chest Pain Oct 24 2009 1:37PM Hypertension, Benign Essential Oct 24 2009 1:37PM Tachycardia Oct 24 2009 1:37PM Skin tags Oct 28 2009 1:59PM Seborrheic keratosis Oct 28 2009 1:59PM Inflamed seborrheic keratosis Oct 28 2009 2:05PM Skin tag Oct 28 2009 2:11PM Malignant melanoma of skin; site unspecified 05/10/2013 Diabetes Mellitus, Type II 12/19/2013 Cardiomegaly Jan 26 2010 9:01AM Hypertension, Benign Essential Jan 26 2010 9:01AM Gout Jan 26 2010 9:01AM Arthritis unspecified Jan 26 2010 2:03PM Hypertension, Benign Essential Jan 26 2010 2:03PM Gout Jan 26 2010 2:03PM Hyperlipidemia, Mixed Jan 26 2010 2:03PM Flu Jan 26 2010 2:06PM Glucose Intolerance Jan 26 2010 2:03PM Benign Neoplasm Of Skin Of Lower Limb 05/06/2014 Actinic keratosis 05/06/2014 Seborrheic keratoses 05/06/2014 Benign neoplasm of skin of back 05/06/2014 Benign Neoplasm Of Scalp 05/06/2014 Scar 05/06/2014 Lipoma 05/14/2014 Lentigo 12/13/2014 Arthritis unspecified Jul 27 2010 10:12AM Hypertension, Benign Essential Jul 27 2010 10:12AM Gout Jul 27 2010 10:12AM Hyperlipidemia, Mixed Jul 27 2010 10:12AM Glucose Intolerance Jul 27 2010 10:12AM Prostate screening Jul 27 2010 10:12AM History of fall Oct 22 2010 10:35AM Pain in joint; shoulder region, Left Oct 22 2010 10:35AM Pain in joint; shoulder region, Right Nov 18 2010 7:26PM Pain in joint; shoulder region, Right Nov 12 2010 10:39AM Bronchitis Dec 23 2010 10:22AM Dyspepsia 07/04/2018 Dysphagia 07/04/2018 Colon cancer screening 07/04/2018 Bronchitis Feb 04 2011 3:11PM Cellulitis Apr 20 2011 4:21PM Pain in joint; shoulder region, Right Sep 22 2011 10:39AM Rash Of Skin Oct 28 2011 3:20PM Hypertension, Benign Essential Apr 23 2013 2:15PM Gout Apr 23 2013 2:15PM Skin Neoplasm Apr 23 2013 2:15PM Arthritis unspecified Apr 23 2013 2:15PM Malignant melanoma of skin; site unspecified May 02 2013 10: 27AM Hypertension Jun 29 2013 7:45AM Benign nevus Aug 10 2013 1:00PM Diabetes Mellitus, Type II Dec 19 2013 9:50AM Arthritis unspecified Dec 19 2013 9:50AM Benign Hypertrophy of Prostate (BPH) Dec 19 2013 9:50AM Hypertension, Benign Essential Dec 19 2013 9:50AM lumbar back pain Dec 19 2013 9:50AM Venous Insufficiency Dec 19 2013 9:50AM Gout Dec 19 2013 9:50AM Umbilical hernia b 2014 2:59PM Benign neoplasm of skin of lower limb Feb 2014 9:24AM Actinic keratosis Feb 2014 9:24AM Seborrheic keratoses, inflamed b 2014 9:24AM Seborrheic keratoses Feb 2014 9:24AM Benign neoplasm of skin of back Feb 2014 9:24AM Benign neoplasm of scalp b 2014 9:24AM Lentigines Feb 2014 9:24AM Scar b 2014 9:24AM Lipoma May 14 2014 3:00PM Upper Respiratory Infections Jul 29 2014 9:02AM Lentigo Dec 11 2014 2:12PM Upper Respiratory Infections Dec 30 2014 8:51AM Diabetes Mellitus, Type II Dec 30 2014 8:51AM lumbar back pain Dec 30 2014 8:51AM Benign Hypertrophy of Prostate (BPH) Dec 30 2014 8:51AM Hypertension, Benign Essential Dec 30 2014 8:51AM Gout Dec 30 2014 8:51AM Flu Jan 06 2015 3:06PM Need for Tdap vaccination Jan 06 2015 3:06PM Diabetes Mellitus, Type II-Diet controlled Mar 26 2016 8:18 AM Benign essential HTN Mar 26 2016 8:18AM Gout Mar 26 2016 8:18AM Mixed hyperlipidemia Mar 26 2016 8:18AM Screening for prostate cancer Mar 26 2016 8:18AM Elevated blood uric acid level Mar 30 2016 12:04PM Bronchitis, Acute Mar 13 2017 1:20PM Cough Mar 13 2017 1:20PM Sinusitis, Acute Mar 13 2017 1:20PM Upper Respiratory Infections Mar 13 2017 1:20PM Lumbar back pain Mar 31 2017 10:00AM Benign Hypertrophy of Prostate (BPH) Mar 31 2017 10:00AM Hypertension, Benign Essential Mar 31 2017 10:00AM Gout Mar 31 2017 10:00AM Insulin resistance Mar 31 2017 10:00AM Screening for prostate cancer Mar 31 2017 10:00AM Urinary urgency Jun 01 2017 3:30PM Elevated PSA Jun 01 2017 3:36PM Benign Hypertrophy of Prostate (BPH) Jun 01 2017 3:14PM Elevated PSA, less than 10 ng/ml Jun 01 2017 3:14PM Hematuria Jun 07 2017 9:49AM Hematuria Jun 07 2017 9:54AM Hematuria Jun 07 2017 1:05PM Microscopic hematuria Jun 22 2017 9:36AM Kidney stone Jun 22 2017 9:36AM Right-sided Nephrolithiasis Jul 13 2017 9:05AM Nephrolithiasis Aug 30 2017 11:18AM Lumbar back pain Mar 23 2018 8:16AM Hypertension, Benign Essential Mar 23 2018 8:16AM Gout Mar 23 2018 8:16AM Mixed hyperlipidemia Mar 23 2018 8:16AM Renal cysts, acquired, bilateral Mar 27 2018 4:04PM Elevated PSA Mar 27 2018 4:04PM Dyspepsia Jul 04 2018 2:28PM Dysphagia Jul 04 2018 2:28PM Colon cancer screening Jul 04 2018 2:28PM Elevated PSA Sep 27 2018 9:56AM Elevated PSA Oct 02 2018 9:59AM Renal cyst Oct 02 2018 9:59AM Urinary Frequency Oct 12 2018 10:23AM Elevated PSA Oct 12 2018 10:23AM BPH (benign prostatic hyperplasia) Oct 12 2018 10:23AM Renal cysts, acquired, bilateral Oct 12 2018 10:23AM Elevated prostate specific antigen (PSA) Oct 17 2018 9:36AM Elevated PSA Oct 24 2018 3:03PM Elevated PSA Oct 24 2018 3:31PM Elevated PSA Oct 24 2018 3:37PM Thyroid mass Dec 28 2018 9:42AM Closed fracture of multiple ribs of right side, initia l encounter Dec 28 2018 9:42AM Thyroid nodule Jan 09 2019 2:26PM Thyroid mass of unclear etiology Jan 12 2019 2:12PM Thyroid mass Feb 20 2019 11:49AM Elevated PSA Mar 12 2019 9:14AM Abnormal MRI Mar 12 2019 9:14AM Prostate cancer Apr 25 2019 11:26AM Gross hematuria Jul 05 2019 2:02PM Urinary frequency Jul 05 2019 2:02PM Payers Insurance Name Company Name Plan Name Plan Number Policy Number Jose G cy Group Number Start Date Medicare Part B Medicare Of [place] [id number] N/A codesy Insurance [employer] [id number] Sunday, 2017 BCBS Bcbs [facility] [id number] 2012 [employer] [facility] [employer] [place] [id number] N/A Medicare Part B Medicare [place] [id number] N/A Medico Medico [id number] N/A Medicare Part A Medicare Part A [id number] Monday, 2011 Medico Insurance Company [employer]ico [employer] Company [id number] N/A Medicare Part A Medicare - Lab/Xray [id number] Monday, September 26, 2011 Aetna Medicare Supplement Aetna Medicare Supplement [id number] N/A Medicare RHC Medicare RHC [id number] N/A Medicare RHC Medicare RHC [id number] Steel September 26, 2011 History of Encounters Visit Date Visit Type Provider 04/25/2019 Office visit DILMA MANZANARES HUMAN RESOURCES MGR 03/12/2019 Office visit DILMA MANZANARES HUMAN RESOURCES MGR 02/20/2019 Office visit Francisco Medina DO 01/12/2019 Office visit Francisco Medina DO 01/09/2019 Office visit Eloisa Hamlin HUMAN RESOURCES MGR 12/28/2018 Office visit Eloisa Hamlin HUMAN RESOURCES MGR 10/24/2018 Office visit Ray Guerra MD 10/17/2018 Procedures Ray Guerra MD 10/12/2018 Office visit Ray Guerra MD 10/02/2018 Office visit DILMA MANZANARES HUMAN RESOURCES MGR 07/17/2018 Surgery Francisco Medina DO 07/04/2018 Office visit Francisco Medina DO 03/27/2018 Office visit Ray Guerra MD 03/23/2018 Office visit Eloisa Hamlin HUMAN RESOURCES MGR 08/30/2017 Office visit Ray Guerra MD 07/19/2017 Surgery Ray Guerra MD 07/13/2017 Office visit Ray Guerra MD 06/22/2017 Procedures Ray Guerra MD 06/01/2017 Office visit Ray Guerra MD 03/31/2017 Office visit Eloisa Hamlin HUMAN RESOURCES MGR 03/13/2017 Office visit Simone Rascon NP 09/06/2016 Hospital Faraz De Los Santos MD 03/26/2016 Office visit Eloisa Hamlin HUMAN RESOURCES MGR 01/06/2015 Nurse visit Eloisa Hamlin HUMAN RESOURCES MGR 12/30/2014 Office visit Eloisa Hamlin HUMAN RESOURCES MGR 12/25/2014 Procedures Francisco Medina DO 12/11/2014 Procedures Francisco Medina DO 07/29/2014 Office visit Farida GILLESPIE RN 05/28/2014 Procedures Francisco Medina DO 05/14/2014 Office visit Francisco Medina DO 05/06/2014 Office visit Jon Alvarez 05/02/2014 Office visit Eloisa Bouabcar HUMAN RESOURCES MGR 01/31/2014 Office visit Jon Alvarez 12/19/2013 Office visit Eloisa Halmin HUMAN RESOURCES MGR 11/01/2013 Office visit Jon Alvarez 08/24/2013 Procedures Francisco Bouman DO 08/10/2013 Procedures Francisco Bouman DO 05/18/2013 Procedures Francisco Bouman DO 05/02/2013 Procedures Francisco Bouman DO 04/23/2013 Office visit Eloisa Hamlin HUMAN RESOURCES MGR 10/28/2011 Office visit Eloisa Hamlin HUMAN RESOURCES MGR 04/20/2011 Office visit Eloisa Hamlin HUMAN RESOURCES MGR 02/04/2011 Office visit Dashawn Drew MD 12/23/2010 Office visit Dashawn Drew MD 11/19/2010 Office visit Dashawn Drew MD 11/12/2010 Office visit Dashawn Drew MD 10/22/2010 Office visit Dashawn Drew MD 10/21/2010 Hospital Faraz De Los Santos MD 09/21/2010 [facility] Faraz De Los Santos MD 07/27/2010 Office visit Ammon Wilson DO 01/26/2010 Office visit Ammon Wilson DO 10/28/2009 Procedures Ammon Wilson DO 10/24/2009 Office visit Ammon Wilson DO 10/04/2009 Laboratory Dusty Ford MD 10/03/2009 Office visit Ammon Wilson DO 10/02/2009 Laboratory Dusty Ford MD 09/05/2009 Office visit Rudolph Betancourt DO 09/01/2009 Laboratory Dusty Ford MD 12/18/2008 Office visit Lana MCCORMICK
--- OUTSIDE RECORDS SUMMARY | 2019-10-10 11:56 | XMS REPORT ---
Author Author Shahbaz MANZANARES [facility] o[facility] Address [address] [place] [id number] Care Team Providers Care Metal Gauge Maker Name Role Phone DILMA MANZANARES PCP Tomy Rosado PreferredProvider Allergies and Adverse Reactions Name Reaction Notes NO KNOWN DRUG ALLERGIES Plan of Treatment Planned Activity Comments Planned Date Planned Time Plan/Goal BASIC METABOLIC PANEL 03/30/2016 12:00 AM URIC ACID. 03/30/2016 12:00 AM URIC ACID. 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 Tobacco Never smoker History [...] AM INTMD RPR S/A/T/EXT 2.5 CM/< Reviewed 07/05/2019 12:00 AM URINALYSIS AUTO W/SCOPE Returned 10/03/2009 12:00 AM GLUCOSE TOLERANCE TEST (GTT) [...] g /dLHCT 46.30 %MCV 95.0 fLMCH 33.50 pgMCHC 35.40 g/dLRDW SD 44 RDW CV 12.80 [...] sanofi pasteur PMC Fluzone > 12 Years [id number] In tramuscular Left Deltoid 01/26/2010 11/05/2008 999 Tdap 01/06/2015 GlaxWabi Sabi Ecofashionconceptine SKB BOOSTRIX [id number] Intramuscula r Right Deltoid [...] Gout Dec 19 2013 9:50AM Umbilical hernia Feb 2014 2:59PM Benign neoplasm of skin of lower limb Feb 2014 9:24AM Actinic keratosis Feb 2014 9:24AM Seborrheic keratoses, inflamed Feb 2014 9:24AM Seborrheic keratoses Feb 9 2014 9:24AM Benign neoplasm of skin of back Feb 9 2014 9:24AM Benign neoplasm of scalp b [...] Date Medicare Part B Medicare Of [place] [id number] N/A [employer] [id number] Sunday, 2017 BCBS Bcbs [facility] [id number] 2012 [employer] [facility] [place] [id number] N/A Medicare Part B Medicare [place] [id number] N/A Medico Medico [id number] N/A Medicare Part A Medicare Part A [id number] Monday, 2011 Medico Insurance Company Medico Insurance Company [id number] N/A Medicare Part A Medicare - Lab/Xray [id number] Monday, September 26, 2011 Aetna Medicare Supplement Aetna Medicare Supplement [id number] N/A Medicare RHC Medicare RHC [id number] N/A Medicare RHC Medicare RHC [id number] Steel September 26, 2011 History of Encounters Visit Date Visit Type Provider 04/25/2019 Office visit DILMA MANZANARES DIRECTOR OF ENROLLMENT 03/12/2019 Office visit DILMA MANZANARES DIRECTOR OF ENROLLMENT 02/20/2019 Office visit Francisco Medina DO 01/12/2019 Office visit Francisco Medina DO 01/09/2019 Office visit Eloisa Hamlin DIRECTOR OF ENROLLMENT 12/28/2018 Office visit Eloisa Hamlin DIRECTOR OF ENROLLMENT 10/24/2018 Office visit Ray Guerra MD 10/17/2018 Procedures Ray Guerra MD 10/12/2018 Office visit Ray Guerra MD 10/02/2018 Office visit DILMA MANZANARES DIRECTOR OF ENROLLMENT 07/17/2018 Surgery Francisco Medina DO 07/04/2018 Office visit Francisco Medina DO 03/27/2018 Office visit Ray Guerra MD 03/23/2018 Office visit Eloisa Hamlin DIRECTOR OF ENROLLMENT 08/30/2017 Office visit Ray Guerra MD 07/19/2017 Surgery Ray Guerra MD 07/13/2017 Office visit Ray Guerra MD 06/22/2017 Procedures Ray Guerra MD 06/01/2017 Office visit Ray Guerra MD 03/31/2017 Office visit Eloisa Hamlin DIRECTOR OF ENROLLMENT 03/13/2017 Office visit Simone Rascon NP 09/06/2016 Hospital Faraz De Los Santos MD 03/26/2016 Office visit Eloisa Hamlin DIRECTOR OF ENROLLMENT 01/06/2015 Nurse visit Eloisa Hamlin DIRECTOR OF ENROLLMENT 12/30/2014 Office visit Eloisa Hamlin DIRECTOR OF ENROLLMENT 12/25/2014 Procedures Francisco Medina DO 12/11/2014 Procedures Francisco Medina DO 07/29/2014 Office visit Farida GILLESPIE RN 05/28/2014 Procedures Francisco Medina DO 05/14/2014 Office visit Francisco Medina DO 05/06/2014 Office visit Jon Alvarez 05/02/2014 Office visit Eloisa Hamlin DIRECTOR OF ENROLLMENT 01/31/2014 Office visit Jon Alvarez 12/19/2013 Office visit Eloisa Hamlin DIRECTOR OF ENROLLMENT 11/01/2013 Office visit Jon Alvarez 08/24/2013 Procedures Francisco Bouman DO 08/10/2013 Procedures Francisco Bouman DO 05/18/2013 Procedures Francisco Bouman DO 05/02/2013 Procedures Francisco Bouman DO 04/23/2013 Office visit Eloisa Hamlin DIRECTOR OF ENROLLMENT 10/28/2011 Office visit Eloisa Hamlin DIRECTOR OF ENROLLMENT 04/20/2011 Office visit Eloisa Hamlin DIRECTOR OF ENROLLMENT 02/04/2011 Office visit Dashawn Drew MD 12/23/2010 Office visit Dashawn Drew MD 11/19/2010 Office visit Dashawn Drew MD 11/12/2010 Office visit Dashawn Drew MD 10/22/2010 Office visit Dashawn Drew MD 10/21/2010 Hospital Faraz De Los Santos MD 09/21/2010 [facility] Faraz De Los Santos MD 07/27/2010 Office [...]
--- OUTSIDE RECORDS SUMMARY | 2019-10-10 11:57 | XMS REPORT ---
Author Author Shahbaz MANZANARES Organization [facility] oup Address [address] [place] [id number] Care Team Providers Care Combat Information Center Officer Name Role Phone DILMA MANZANARES PCP [...] Comments Alcohol Use - Rare Exercises regularly [employer] 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 Tobacco Never smoker History [...] sanofi pasteur PMC Fluzone > 12 Years [id number] In tramuscular Left Deltoid 01/26/2010 11/05/2008 999 Tdap 01/06/2015 GlaxLime&Tonicine SKB BOOSTRIX [id number] Intramuscula r Right Deltoid [...] Date Medicare Part B Medicare Of [place] [id number] N/A [employer] [id number] Sunday, 2017 BCBS Bcbs [facility] [id number] 2012 [employer] [facility] [employer]pl[employer] In [id number] N/A Medicare Part B Medicare [place] [id number] N/A Medico Medico [id number] N/A Medicare Part A Medicare Part A [id number] Monday, 2011 Medico Insurance Company Medico Insurance Company [id number] N/A Medicare Part A Medicare - Lab/Xray [id number] Monday, September 26, 2011 Aetna Medicare Supplement Aetna Medicare Supplement [id number] N/A Medicare RHC Medicare RHC [id number] N/A Medicare RHC Medicare RHC [id number] Steel September 26, 2011 History of Encounters Visit Date Visit Type Provider 04/25/2019 Office visit DILMA MANZANARES RN TRAUMA 03/12/2019 Office visit DILMA MANZANARES RN TRAUMA 02/20/2019 Office visit Francisco Medina DO 01/12/2019 Office visit Francisco Medina DO 01/09/2019 Office visit Eloisa Hamlin RN TRAUMA 12/28/2018 Office visit Eloisa Hamlin RN TRAUMA 10/24/2018 Office visit Ray Guerra MD 10/17/2018 Procedures Ray Guerra MD 10/12/2018 Office visit Ray Guerra MD 10/02/2018 Office visit DILMA MANZANARES RN TRAUMA 07/17/2018 Surgery Francisco Medina DO 07/04/2018 Office visit Francisco Medina DO 03/27/2018 Office visit Ray Guerra MD 03/23/2018 Office visit Eloisa Hamlin RN TRAUMA 08/30/2017 Office visit Ray Guerra MD 07/19/2017 Surgery Ray Guerra MD 07/13/2017 Office visit Ray Guerra MD 06/22/2017 Procedures Ray Guerra MD 06/01/2017 Office visit Ray Guerra MD 03/31/2017 Office visit Eloisa Hamlin RN TRAUMA 03/13/2017 Office visit Simone Rascon NP 09/06/2016 Hospital Faraz De Los Santos MD 03/26/2016 Office visit Eloisa Hamlin RN TRAUMA 01/06/2015 Nurse visit Eloisa Hamlin RN TRAUMA 12/30/2014 Office visit Eloisa Hamlin RN TRAUMA 12/25/2014 Procedures Francisco Medina DO 12/11/2014 Procedures Francisco Medina DO 07/29/2014 Office visit Farida GILLESPIE RN 05/28/2014 Procedures Francisco Medina DO 05/14/2014 Office visit Francisco Medina DO 05/06/2014 Office visit Jon Alvarez 05/02/2014 Office visit Eloisa Boubacar RN TRAUMA 01/31/2014 Office visit Jon Alvarez 12/19/2013 Office visit Eloisa Hamlin RN TRAUMA 11/01/2013 Office visit Jon Alvarez 08/24/2013 Procedures Francisco Bouman DO 08/10/2013 Procedures Francisco Bouman DO 05/18/2013 Procedures Francisco Bouman DO 05/02/2013 Procedures Francisco Bouman DO 04/23/2013 Office visit Eloisa Hamlin RN TRAUMA 10/28/2011 Office visit Eloisa Hamlin RN TRAUMA 04/20/2011 Office visit Eloisa Hamlin RN TRAUMA 02/04/2011 Office visit Dashawn Drew MD 12/23/2010 Office visit Dashawn Drew MD 11/19/2010 Office visit Dashawn Drew MD 11/12/2010 Office visit Dashawn Drew MD 10/22/2010 Office visit Dashawn Drew MD 10/21/2010 Hospital Faraz De Los Santos MD 09/21/2010 [facility] Faraz De Los Santos MD 07/27/2010 [...]
--- OUTSIDE RECORDS SUMMARY | 2019-10-10 11:57 | XMS REPORT ---
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 Tobacco Never [...] 12:00 AM ALBUMIN URINE MICROALBUMIN QUANTIATIVE R rebecca 11/19/2010 12:00 AM DRAIN/INJ JOINT/BURSA W/O US [...] Diagnosis melanoma in situ Treatment Excision - uman Tx Date 05/02/13 Cancer Stage Stage 0 [...] sanofi pasteur PMC Fluzone > 12 Years [id number] In tramuscular Left Deltoid 01/26/2010 11/05/2008 999 Tdap 01/06/2015 GlaxAccelerated Vision Groupine SKB BOOSTRIX [id number] Intramuscula r Right Deltoid [...] Of Skin Of Lower Limb 05/06/2014 Actinic Keratosis 05/06/2014 Seborrheic keratoses 05/06/2014 Benign neoplasm of [...] Feb 2014 9:24AM Benign neoplasm of scalp Feb 2014 9:24AM Lentigines Feb 2014 9:24AM Scar [...] 9:14AM Prostate cancer Apr 25 2019 11:26AM Payers Insurance Name Company Name Plan Name Plan Number Policy Number Jose G cy Group Number Start Date Medicare Part B Medicare Of [place] [id number] N/A [id number] [id number] Sunday, 2017 BCBS Bcbs [facility] [id number] 2012 [employer] In c [id number] N/A Medicare Part B Medicare Of [place] [id number] N/A Medico Medico [id number] N/A Medicare Part A Medicare Part A [id number] Monday, 2011 [place] Insurance [employer] Insurance [place] [id number] N/A Medicare Part A Medicare - Lab/Xray [id number] Monday, September 26, 2011 Aetna Medicare Supplement Aetna Medicare Supplement [id number] N/A Medicare C Medicare RHC [id number] N/A Medicare [facility] Medicare RHC [id number] Steel [place], September 26, 2011 History of Encounters Visit Date Visit Type Provider 04/25/2019 Office visit DILMA MANZANARES MEDICAL CHARGE ENTRY SPECIALIST 03/12/2019 Office visit DILMA MANZANARES MEDICAL CHARGE ENTRY SPECIALIST 02/20/2019 Office visit Francisco Bouman DO 01/12/2019 Office visit Francisco Rodolfouman DO 01/09/2019 Office visit Eloisa Hamlin MEDICAL CHARGE ENTRY SPECIALIST 12/28/2018 Office visit Eloisa Hamlin MEDICAL CHARGE ENTRY SPECIALIST 10/24/2018 Office visit Ray Guerra MD 10/17/2018 Procedures Ray Guerra MD 10/12/2018 Office visit Ray Guerra MD 10/02/2018 Office visit DILMA MANZANARES MEDICAL CHARGE ENTRY SPECIALIST 07/17/2018 Surgery Francisco Medina DO 07/04/2018 Office visit Francisco Medina DO 03/27/2018 Office visit Ray Guerra MD 03/23/2018 Office visit Eloisa Hamlin MEDICAL CHARGE ENTRY SPECIALIST 08/30/2017 Office visit Ray Guerra MD 07/19/2017 Surgery Ray Guerra MD 07/13/2017 Office visit Ray Guerra MD 06/22/2017 Procedures Ray Guerra MD 06/01/2017 Office visit Ray Guerra MD 03/31/2017 Office visit Eloisa Hamlin MEDICAL CHARGE ENTRY SPECIALIST 03/13/2017 Office visit Garland Rascon NP 09/06/2016 [facility] Faraz De Los Santos MD 03/26/2016 Office visit Eloisa Hamlin MEDICAL CHARGE ENTRY SPECIALIST 01/06/2015 Nurse visit Eloisa Hamlin MEDICAL CHARGE ENTRY SPECIALIST 12/30/2014 Office visit Eloisa Hamlin MEDICAL CHARGE ENTRY SPECIALIST 12/25/2014 Procedures Francisco Bouman DO 12/11/2014 Procedures Francisco Bouman DO 07/29/2014 Office visit Farida GILLESPIE RN 05/28/2014 Procedures Francisco Bouman DO 05/14/2014 Office visit Francisco Medina DO 05/06/2014 Office visit Jon Alvarez 05/02/2014 Office visit Eloisa Hamlin MEDICAL CHARGE ENTRY SPECIALIST 01/31/2014 Office visit Jon Alvarez 12/19/2013 Office visit Eloisa Hamlin MEDICAL CHARGE ENTRY SPECIALIST 11/01/2013 Office visit Jon Alvarez 08/24/2013 Procedures Francisco Boana DO 08/10/2013 Procedures Francisco Bouman DO 05/18/2013 Procedures Francisco Bouman DO 05/02/2013 Procedures Francisco Bouman DO 04/23/2013 Office visit Eloisa Hamlin MEDICAL CHARGE ENTRY SPECIALIST 10/28/2011 Office visit Eloisa Hamlin MEDICAL CHARGE ENTRY SPECIALIST 04/20/2011 Office visit Eloisa Hamlin MEDICAL CHARGE ENTRY SPECIALIST 02/04/2011 Office visit Dashawn Drew MD 12/23/2010 Office visit Dashawn Drew MD 11/19/2010 Office visit Dashawn Drew MD 11/12/2010 Office visit Dashawn Drew MD 10/22/2010 Office visit Dashawn Drew MD 10/21/2010 Hospital Faraz De Los Santos MD 09/21/2010 Hospital Faraz De Los Santos MD 07/27/2010 [...]
--- OUTSIDE RECORDS SUMMARY | 2019-10-10 11:58 | XMS REPORT ---
Author Author Shahbaz MANZANARES [facility] ou Address [address] [place] [id number] Care Team Providers Care Newspaper Columnist Name Role Phone DILMA MANZANARES PCP Tomy [...] 1 TAB LET BY MOUTH EVERY DAY atorvastatin 20 mg oral tablet 03/23/2018 T BROOKS 1 TABLET BY MOUTH EVERY NIGHT AT BEDTIME lisinopril 10 mg oral tablet 03/23/2018 TAKE 1 TABLE T BY MOUTH EVERY DAY lisinopril 10 mg oral tablet 04/16/2019 TAKE 1 TABLE T BY MOUTH EVERY DAY Name Start Date Expiration Date SIG Comments [...] Dyspepsia Active 07/04/2018 Dysphagia Active 07/04/2018 Colon Cancer Screening Active 07/04/2018 Vital Signs Date Time BP-Sys(mm[Hg] BP-Oswmya(mm[Hg]) HR(bpm) RR(rpm) Temp WT HT HC BMI [...] rpm 97.4 F 275 lbs 71 in 38.3543 kg/m2 2.4997 m2 03/27/2018 4:03:00 PM 135 mm[Hg] 82 mm[Hg] 82 {beats}/min 18 rpm 97.5 F 277.125 lbs 71 in 38.65 kg/m2 2.51 m2 95 % 03/23/2018 8:14:00 AM 122 mm[Hg] 68 mm[Hg] 64 {beats}/min 18 rpm 98.2 F 274 lbs 70 in 39.3145 kg/m2 2.4776 m2 97 % 08/30/2017 11:15:00 AM 122 mm[Hg] 82 mm[Hg] 67 {beats}/min 18 rpm 98.1 F 254.375 lbs 70 in 36.50 kg/m2 2.39 m2 96 % 07/13/2017 9:02:00 AM 118 mm[Hg] 68 mm[Hg] 95 {beats}/min 18 rpm 98.1 F 267 lbs 70 in 38.3101 kg/m2 2.4457 m2 95 % 06/01/2017 3:07:00 PM 128 mm[Hg] 82 mm[Hg] 65 {beats}/min 18 rpm 266.25 lbs 70 in 38.20 kg/m2 2.44 m2 95 % 03/31/2017 9:58:00 AM 133 mm[Hg] 68 mm[Hg] 64 {beats}/min 18 rpm 97.8 F 263.5 lbs 70 in 37.8079 kg/m2 2.4296 m2 96 % 03/13/2017 1:17:00 PM 130 mm[Hg] 60 mm[Hg] 96 {beats}/min 98.5 F 266 lbs 94 % 03/26/2016 8:16:00 AM 132 mm[Hg] 72 mm[Hg] 72 {beats}/min 18 rpm 97.4 F 240.375 lbs 70 in 34.4899 kg/m2 2.3206 m2 98 % 12/30/2014 8:49:00 AM 124 mm[Hg] 74 mm[Hg] 56 {beats}/min 18 rpm 96.9 F 234.125 lbs 70 in 33.59 kg/m2 2.29 m2 97 % 12/25/2014 8:54:00 AM 112 mm[Hg] 65 mm[Hg] 76 {beats}/min 16 rpm 98.1 F 231 lbs 70 in 33.1447 kg/m2 2.2749 m2 12/11/2014 1:19:00 PM 111 mm[Hg] 67 mm[Hg] 73 {beats}/min 18 rpm 98.4 F 232 lbs 70 in 33.29 kg/m2 2.28 m2 07/29/2014 9:01:00 AM 119 mm[Hg] 71 mm[Hg] 53 {beats}/min 20 rpm 97.4 F 232.4 lbs 71 in 32.4129 kg/m2 2.298 m2 96 % 05/28/2014 9:34:00 AM 124 mm[Hg] 76 mm[Hg] 62 {beats}/min 20 rpm 97.4 F 233 lbs 71 in 32.50 kg/m2 2.30 m2 05/14/2014 2:53:00 PM 108 mm[Hg] 69 mm[Hg] 76 {beats}/min 16 rpm 98.3 F 235.312 lbs 71 in 32.8191 kg/m2 2.3123 m2 05/06/2014 9:27:00 AM 136 mm[Hg] 68 [...] sanofi pasteur PMC Fluzone > 12 Years [id number] In tramuscular Left Deltoid 01/26/2010 11/05/2008 999 Tdap 01/06/2015 Glaxiyzicoine SKB BOOSTRIX [id number] Intramuscula r Right Deltoid [...] 2010 10:22AM Dyspepsia 07/04/2018 Dysphagia 07/04/2018 Colon Cancer Screening 07/04/2018 Bronchitis Feb 04 2011 3:11PM Cellulitis [...] Date Medicare Part B Medicare [place] [id number] N/A [employer] Insurance [id number] Sunday, 2017 BCBS Bcbs [facility] [id number] 2012 [employer] [facility] [employer] [facility] [id number] N/A Medicare Part B Medicare [place] [id number] N/A Medico Medico [id number] N/A Medicare Part A Medicare Part A [id number] Monday, 2011 Medico Insurance Food [place] Insurance [employer] [id number] N/A Medicare Part A Medicare - Lab/Xray [id number] Monday, September 26, 2011 Aetna Medicare Supplement Aetna Medicare Supplement [id number] N/A Medicare [facility] Medicare C [id number] N/A Medicare RHC Medicare [facility] [id number] Milvia zambrano, September 26, 2011 History of Encounters Visit Date Visit Type Provider 04/25/2019 Office visit DILMA MANZANARES MARKING MACHINE TENDER 03/12/2019 Office visit DILMA MANZANARES MARKING MACHINE TENDER 02/20/2019 Office visit Francisco Bouman DO 01/12/2019 Office visit Francisco Bouman DO 01/09/2019 Office visit Eloisa Hamlin MARKING MACHINE TENDER 12/28/2018 Office visit Eloisa Hamlin MARKING MACHINE TENDER 10/24/2018 Office visit Ray Guerra MD 10/17/2018 Procedures Ray Guerra MD 10/12/2018 Office visit Ray Guerra MD 10/02/2018 Office visit DILMA MANZANARES MARKING MACHINE TENDER 07/17/2018 Surgery Francisco Medina DO 07/04/2018 Office visit Francisco Medina DO 03/27/2018 Office visit Ray Guerra MD 03/23/2018 Office visit Eloisa Hamlin MARKING MACHINE TENDER 08/30/2017 Office visit Ray Guerra MD 07/19/2017 Surgery Ray Guerra MD 07/13/2017 Office visit Ray Guerra MD 06/22/2017 Procedures Ray Guerra MD 06/01/2017 Office visit Ray Guerra MD 03/31/2017 Office visit Eloisa Hamlin MARKING MACHINE TENDER 03/13/2017 Office visit Garland Rascon NP 09/06/2016 [facility] Faraz De Los Santos MD 03/26/2016 Office visit Eloisa Hamlin MARKING MACHINE TENDER 01/06/2015 Nurse visit Eloisa Hamlin MARKING MACHINE TENDER 12/30/2014 Office visit Eloisa Hamlin MARKING MACHINE TENDER 12/25/2014 Procedures Francisco Bouman DO 12/11/2014 Procedures Francisco Bouman DO 07/29/2014 Office visit Farida GILLESPIE RN 05/28/2014 Procedures Francisco Bouman DO 05/14/2014 Office visit Francisco Reynoldsuman DO 05/06/2014 Office visit Jon Alvarez 05/02/2014 Office visit Eloisa Hamlin MARKING MACHINE TENDER 01/31/2014 Office visit Jon Alvarez 12/19/2013 Office visit Eloisa Hamlin MARKING MACHINE TENDER 11/01/2013 Office visit Jon Alvarez 08/24/2013 Procedures Francisco Bouman DO 08/10/2013 Procedures Francsico Bouman DO 05/18/2013 Procedures Francisco Bouman DO 05/02/2013 Procedures Francisco Bouman DO 04/23/2013 Office visit Eloisa Hamlin MARKING MACHINE TENDER 10/28/2011 Office visit Eloisa Hamlin MARKING MACHINE TENDER 04/20/2011 Office visit Eloisa Hamlin MARKING MACHINE TENDER 02/04/2011 Office visit Dashawn Drew MD 12/23/2010 [...]
--- OUTSIDE RECORDS SUMMARY | 2019-10-10 11:59 | XMS REPORT ---
Author Author Shahbaz Guerra Organization [facility] oup Address [address] [place] [id number] Care Team Providers Care Furniture Shampooer Name Role Phone Ray Guerra PCP Tomy Rosado PreferredProvider Allergies and Adverse Reactions Name Reaction Notes NO KNOWN DRUG ALLERGIES Plan of Treatment Planned Activity Comments Planned Date Planned Time Plan/Goal BASIC METABOLIC PANEL 03/30/2016 12:00 AM URIC ACID. 03/30/2016 12:00 AM URIC ACID. 03/30/2016 12:00 AM PSA TOTAL 01/24/2019 12:00 AM MRI prostate wo then w contrast 10/24/2018 12:00 AM Basic metabolic panel 06/29/2013 12:00 [...] HC BMI BSA BMI Percentile O2 Sat(%) 10/24/2018 3:00:00 PM 130 mmHg 88 mmHg 111 bpm 18 rpm 97.8 F 275 lbs 71 in 38.3543 kg/m 2.4997 m 96 % 10/12/2018 10:22:00 AM 130 mmHg 78 mmHg 98 bpm 18 rpm 98.2 F 275 lbs 71 in 38.35 kg/m2 2.50 m2 96 % 10/02/2018 9:56:00 AM 116 mmHg 72 mmHg 85 bpm 18 rpm 97.7 F 275 lbs 71 in 38.3543 kg/m 2.4997 m 94 % 07/04/2018 2:26:00 PM 124 mmHg 65 mmHg 81 bpm 20 rpm 97.4 F 275 lbs 71 in 38.3543 kg/m 2.50 m2 03/27/2018 4:03:00 PM 135 mmHg 82 mmHg 82 bpm 18 rpm 97.5 F 277.125 lbs 71 in 38.65 kg/m2 2.51 m2 95 % 03/23/2018 8:14:00 AM 122 mmHg 68 mmHg 64 bpm 18 rpm 98.2 F 274 lbs 70 in 39.3145 kg/m 2.4776 m 97 % 08/30/2017 11:15:00 AM 122 mmHg 82 mmHg 67 bpm 18 rpm 98.1 F 254.375 lbs 70 in 36.50 kg/m2 2.39 m2 96 % 07/13/2017 9:02:00 AM 118 mmHg 68 mmHg 95 bpm 18 rpm 98.1 F 267 lbs 70 in 38.3101 kg/m 2.4457 m 95 % 06/01/2017 3:07:00 PM 128 mmHg 82 mmHg 65 bpm 18 rpm 266.25 lbs 70 in 38.20 kg/m2 2.44 m2 95 % 03/31/2017 9:58:00 AM 133 mmHg 68 mmHg 64 bpm 18 rpm 97.8 F 263.5 lbs 70 in 37.8079 kg/m 2.4296 m 96 % 03/13/2017 1:17:00 PM 130 mmHg 60 mmHg 96 bpm 98.5 F 266 lbs 94 % 03/26/2016 8:16:00 AM 132 mmHg 72 mmHg 72 bpm 18 rpm 97.4 F 240.375 lbs 70 in 34.4899 kg/m 2.3206 m 98 % 12/30/2014 8:49:00 AM 124 mmHg 74 mmHg 56 bpm 18 rpm 96.9 F 234.125 lbs 70 in 33.59 kg/m2 2.29 m2 97 % 12/25/2014 8:54:00 AM 112 mmHg 65 mmHg 76 bpm 16 rpm 98.1 F 231 lbs 70 in 33.1447 kg/m 2.2749 m 12/11/2014 1:19:00 PM 111 mmHg 67 mmHg 73 bpm 18 rpm 98.4 F 232 lbs 70 in 33.29 kg/m2 2.28 m2 07/29/2014 9:01:00 AM 119 mmHg 71 mmHg 53 bpm 20 rpm 97.4 F 232.4 lbs 71 in 32.4129 kg/m 2.298 m 96 % 05/28/2014 9:34:00 AM 124 mmHg 76 mmHg 62 bpm 20 rpm 97.4 F 233 lbs 71 in 32.50 kg/m2 2.30 m2 05/14/2014 2:53:00 PM 108 mmHg 69 mmHg 76 bpm 16 rpm 98.3 F 235.312 lbs 71 in 32.8191 kg/m 2.3123 m 05/06/2014 9:27:00 AM 136 mmHg 68 mmHg 18 rpm 97.9 F 05/02/2014 2:53:00 PM 108 mmHg 78 mmHg 81 bpm 16 rpm 97.7 F 253 lbs 71 in 35.286 kg/m 2.3977 m 97 % 12/19/2013 9:47:00 AM 130 mmHg 70 mmHg 64 bpm 18 rpm 97.4 F 253.375 lbs 71 in 35.34 kg/m2 2.40 m2 98 % 08/24/2013 10:04:00 AM 122 mmHg 78 mmHg 60 bpm 16 rpm 97.5 F 265 lbs 71 in 36.9596 kg/m 2.4539 m 08/10/2013 12:58:00 PM 132 mmHg 75 mmHg 65 bpm 18 rpm 98 F 260.312 lbs 71 in 36.31 kg/m2 2.43 m2 05/18/2013 11:02:00 AM 16 rpm 98 F 264 lbs 71 in 3 6.8201 kg/m 2.4492 m 05/02/2013 10:22:00 AM 130 mmHg 80 mmHg 80 bpm 16 rpm 98.3 F 269 lbs 71 in 37.52 kg/m2 2.47 m2 04/23/2013 2:13:00 PM 130 mmHg 66 mmHg 69 bpm 18 rpm 97.8 F 270.375 lbs 71 in 37.7093 kg/m 2.4786 m 97 % 10/28/2011 3:18:00 PM 148 mmHg 72 mmHg 68 bpm 18 rpm 98.9 F 276.125 lbs 71 i n 38.51 kg/m2 2.50 m2 04/20/2011 4:19:00 PM 136 mmHg 74 mmHg 68 bpm 18 rpm 97.5 F 257.375 lbs 71 in 35.8962 kg/m 2.4183 m 02/04/2011 3:15:00 PM 128 mmHg 90 mmHg 69 bpm 97.9 F 260.25 lbs 96 % 12/23/2010 10:25:00 AM 125 mmHg 80 mmHg 72 bpm 97.7 F 263 lbs 96 % 11/19/2010 11:08:00 AM 130 mmHg 90 mmHg 92 bpm 18 rpm 97.8 F 255.125 lbs 96 % 11/12/2010 10:37:00 AM 152 mmHg 90 mmHg 84 bpm 98.3 F 256 lbs 10/22/2010 10:35:00 AM 125 mmHg 70 mmHg 68 bpm 18 rpm 97.8 F 252.375 lbs 71 in 35.1988 kg/m 2.3947 m 97 % 07/27/2010 10:12:00 AM 150 mmHg 90 mmHg 61 bpm 18 rpm 98 F 259 lbs 70 in 37.16 kg/m2 2.41 m2 96 % 01/26/2010 1:54:00 PM 120 mmHg 80 mmHg 58 bpm 18 rpm 97.6 F 272.125 lbs 70 in 39.0455 kg/m 2.4691 m 96 % 10/28/2009 1:42:00 PM 110 mmHg 78 mmHg 61 bpm 18 rpm 97.3 F 262.5 lbs 70 in 37.66 kg/m2 2.43 m2 95 % 10/24/2009 1:24:00 PM 120 mmHg 88 mmHg 96 bpm 20 rpm 98 F 258.5 lbs 70 in 37.0905 kg/m 2.4065 m 95 % 10/03/2009 2:24:00 PM 120 mmHg 90 mmHg 90 bpm 20 rpm 98.6 F 255.5 lbs 70 in 36.66 kg/m2 2.39 m2 96 % 09/05/2009 8:34:00 AM 110 mmHg 76 mmHg 68 bpm 18 rpm 267 lbs 70 in 38.3101 kg/m 2.4457 m Social History Name Description Comments Alcohol Use [...] 12:00 AM ALBUMIN URINE MICROALBUMIN QUANTIATIVE R neerajiewed 11/19/2010 12:00 AM DRAIN/INJ JOINT/BURSA W/O US [...] Reviewed 10/17/2018 12:00 AM US TRANSRECTAL Reviewed 04/23/2013 12:00 AM COMPLETE CBC W/AUTO DIFF WBC Reviewed 04/23/2013 12:00 AM COMPREHEN METABOLIC PANEL Reviewed 04/23/2013 12:00 AM LIPID PANEL Reviewed 04/23/2013 12:00 AM ASSAY OF BLOOD/URIC ACID Reviewed 08/10/2013 12:00 AM EXC TR-EXT B9+CHEO [...] Few MUCOUS/LPF Few CULT SET UP? YES History Of Immunizations Name Date Admin Mfg Name Mfg Code Trade Name Lot# Route Inj Vis Given Vis Pub CVX Influenza 01/09/2008 Not Entered NE Not Entered Not Entered Not Entered 03/28/2019 03/28/2019 999 Td 10/07/1999 sanofi pasteur PMC DECAVAC Intramuscular Not E ntered 03/28/2019 03/28/2019 999 Influenza 01/26/2010 sanofi pasteur PMC Fluzone > 12 Years [id number] In tramuscular Left Deltoid 01/26/2010 11/05/2008 999 Tdap 01/06/2015 GlaxEcoSurge SKB BOOSTRIX [id number] Intramuscula r Right Deltoid [...] Gout Dec 19 2013 9:50AM Umbilical hernia May 02 2014 2:59PM Benign neoplasm of skin of lower limb b 2014 9:24AM Actinic keratosis Feb 2014 9:24AM [...] 3:31PM Elevated PSA Oct 24 2018 3:37PM Payers Insurance Name Company Name Plan Name Plan Number Policy Number Jose G cy Group Number Start Date Medicare Part B Medicare Isaac Adkins [id number] N/A [employer] Life [employer] [id number] Sunday, 2017 BCBS Bcbs Isaac Adkins [id number] 2012 [employer] [facility] [employer] [facility] c [id number] N/A Medicare Part B Medicare Isaac Adkins [id number] N/A Medico Medico [id number] N/A Medicare Part A Medicare Part A [id number] Monday, 2011 Medico Insurance Company Medico Insurance Company [id number] N/A Medicare Part A Medicare - Lab/Xray [id number] Monday, September 26, 2011 Aetna Medicare Supplement Aetna Medicare Supplement [id number] N/A Medicare RHC Medicare RHC [id number] N/A Medicare RHC Medicare RHC [id number] September 26, 2011 History of Encounters Visit Date Visit Type Provider 10/24/2018 Office visit Ray Guerra MD 10/17/2018 Procedures Ray Guerra MD 10/12/2018 Office visit Ray Guerra MD 10/02/2018 Office visit DILMA MANZANARES TRUCK BODY BUILDER APPRENTICE 07/17/2018 Surgery Francisco Medina DO 07/04/2018 Office visit Francisco Medina DO 03/27/2018 Office visit Ray Guerra MD 03/23/2018 Office visit Eloisa Hamlin TRUCK BODY BUILDER APPRENTICE 08/30/2017 Office visit Ray Guerra MD 07/19/2017 Surgery Ray Guerra MD 07/13/2017 Office visit Ray Guerra MD 06/22/2017 Procedures Ray Guerra MD 06/01/2017 Office visit Ray Guerra MD 03/31/2017 Office visit Eloisa Hamlin TRUCK BODY BUILDER APPRENTICE 03/13/2017 Office visit Garland Rascon NP 09/06/2016 Silviano De Los Santos MD 03/26/2016 Office visit Eloisa Hamlin TRUCK BODY BUILDER APPRENTICE 01/06/2015 Nurse visit Eloisa Hamlin TRUCK BODY BUILDER APPRENTICE 12/30/2014 Office visit Eloisa Hamlin TRUCK BODY BUILDER APPRENTICE 12/25/2014 Procedures Francisco Medina DO 12/11/2014 Procedures Francisco Medina DO 07/29/2014 Office visit Farida GILLESPIE RN 05/28/2014 Procedures Francisco Medina DO 05/14/2014 Office visit Francisco Medina DO 05/06/2014 Office visit Jon Alvarez 05/02/2014 Office visit Eloisa Hamlin TRUCK BODY BUILDER APPRENTICE 01/31/2014 Office visit Jon Alvarez 12/19/2013 Office visit Eloisa Hamlin TRUCK BODY BUILDER APPRENTICE 11/01/2013 Office visit Jon Alvarez 08/24/2013 Procedures Francisco Bouman DO 08/10/2013 Procedures Francisco Bouman DO 05/18/2013 Procedures Francisco Bouman DO 05/02/2013 Procedures Francisco Bouman DO 04/23/2013 Office visit Eloisa Hamlin TRUCK BODY BUILDER APPRENTICE 10/28/2011 Office visit Eloisa Hamlin TRUCK BODY BUILDER APPRENTICE 04/20/2011 Office visit Eloisa Boubacar TRUCK BODY BUILDER APPRENTICE 02/04/2011 Office visit Dashawn Drew MD 12/23/2010 Office visit Dashawn Drew MD 11/19/2010 Office visit Dashawn Drew MD 11/12/2010 Office visit Dashawn Drew MD 10/22/2010 Office visit Dashawn Drew MD 10/21/2010 Hospital Faraz De Los Santos MD 09/21/2010 [facility] Faraz De Los Santos MD 07/27/2010 [...]
--- OUTSIDE RECORDS SUMMARY | 2019-10-10 11:59 | XMS REPORT ---
Author Author Shahbaz Guerra Organization [facility] Physicians oup Address [address] [place] [id number] Care Team Providers Care Micro Computer Data Processor Name Role Phone Ray Guerra PCP Tomy [...] sanofi pasteur PMC Fluzone > 12 Years [id number] In tramuscular Left Deltoid 01/26/2010 11/05/2008 999 Tdap 01/06/2015 GlaxParQnow SKB BOOSTRIX [id number] Intramuscula r Right Deltoid [...] Date Medicare Part B Medicare Isaac Adkins [id number] N/A [employer] [id number] Sunday, 2017 BCBS Bcbs Isaac Adkins [id number] 2012 [employer] c [id number] N/A Medicare Part B Medicare Isaac Adkins [id number] N/A Medico Medico [id number] N/A Medicare Part A Medicare Part A [id number] Monday, 2011 Medico Insurance Company Medico Insurance Company [id number] N/A Medicare Part A Medicare - Lab/Xray [id number] Monday, September 26, 2011 Aetna Medicare Supplement Aetna Medicare Supplement [id number] N/A Medicare RHC Medicare RHC [id number] N/A Medicare RHC Medicare RHC [id number] September 26, 2011 History of Encounters Visit Date Visit Type Provider 10/24/2018 Office visit Ray Guerra MD 10/17/2018 Procedures Ray Guerra MD 10/12/2018 Office visit Ray Guerra MD 10/02/2018 Office visit DILMA MANZANARES CORPORATE RECEPTIONIST 07/17/2018 Surgery Francisco Medina DO 07/04/2018 Office visit Francisco Medina DO 03/27/2018 Office visit Ray Guerra MD 03/23/2018 Office visit Eloisa Hamlin CORPORATE RECEPTIONIST 08/30/2017 Office visit Ray Guerra MD 07/19/2017 Surgery Ray Guerra MD 07/13/2017 Office visit Ray Guerra MD 06/22/2017 Procedures Ray Guerra MD 06/01/2017 Office visit Ray Guerra MD 03/31/2017 Office visit Eloisa Hamlin CORPORATE RECEPTIONIST 03/13/2017 Office visit Garland Rascon NP 09/06/2016 Silviano De Los Santos MD 03/26/2016 Office visit Eloisa Hamlin CORPORATE RECEPTIONIST 01/06/2015 Nurse visit Eloisa Hamlin CORPORATE RECEPTIONIST 12/30/2014 Office visit Eloisa Hamlin CORPORATE RECEPTIONIST 12/25/2014 Procedures Francisco Medina DO 12/11/2014 Procedures Francisco Medina DO 07/29/2014 Office visit Farida GILLESPIE RN 05/28/2014 Procedures Francisco Medina DO 05/14/2014 Office visit Francisco Medina DO 05/06/2014 Office visit Jon Alvarez 05/02/2014 Office visit Eloisa Hamlin CORPORATE RECEPTIONIST 01/31/2014 Office visit Jon Alvarez 12/19/2013 Office visit Eloisa Hamlin CORPORATE RECEPTIONIST 11/01/2013 Office visit Jon Alvarez 08/24/2013 Procedures Francisco Bouman DO 08/10/2013 Procedures Francisco Bouman DO 05/18/2013 Procedures Francisco Bouman DO 05/02/2013 Procedures Francisco Bouman DO 04/23/2013 Office visit Eloisa Hamlin CORPORATE RECEPTIONIST 10/28/2011 Office visit Eloisa Hamlin CORPORATE RECEPTIONIST 04/20/2011 Office visit Eloisa Boubacar CORPORATE RECEPTIONIST 02/04/2011 Office visit Dashawn Drew MD 12/23/2010 Office visit Dashawn Drew MD 11/19/2010 Office visit Dashawn Drew MD 11/12/2010 Office visit Dashawn Drew MD 10/22/2010 Office visit Dashawn Drew MD 10/21/2010 Hospital Faraz De Los Santos MD 09/21/2010 [facility] Faraz De Los Santos MD 07/27/2010 [...]
--- OUTSIDE RECORDS SUMMARY | 2019-10-10 12:00 | XMS REPORT ---
Author Author Shahbaz Guerra Organization [facility] Physicians oup Address [address] [place] [id number] Care Team Providers Care Medicaid Billing Clerk Name Role Phone Ray Guerra PCP Tomy [...] sanofi pasteur PMC Fluzone > 12 Years [id number] In tramuscular Left Deltoid 01/26/2010 11/05/2008 999 Tdap 01/06/2015 GlaxAptito SKB BOOSTRIX [id number] Intramuscula r Right Deltoid [...] Date Medicare Part B Medicare Isaac Adkins [id number] N/A [employer] [id number] Sunday, 2017 BCBS Bcbs Isaac Adkins [id number] 2012 Clark [employer] c [id number] N/A Medicare Part B Medicare Isaac Adkins [id number] N/A Medico Medico [id number] N/A Medicare Part A Medicare Part A [id number] Monday, 2011 Medico Insurance Company Medico Insurance Company [id number] N/A Medicare Part A Medicare - Lab/Xray [id number] Monday, September 26, 2011 Aetna Medicare Supplement Aetna Medicare Supplement [id number] N/A Medicare RHC Medicare RHC [id number] N/A Medicare RHC Medicare RHC [id number] September 26, 2011 History of Encounters Visit Date Visit Type Provider 10/24/2018 Office visit Ray Guerra MD 10/17/2018 Procedures Ray Guerra MD 10/12/2018 Office visit Ray Guerra MD 10/02/2018 Office visit DILMA MANZANARES ORTHOPAEDIC TECHNOLOGIST 07/17/2018 Surgery Francisco Medina DO 07/04/2018 Office visit Francisco Medina DO 03/27/2018 Office visit Ray Guerra MD 03/23/2018 Office visit Eloisa Hamlin ORTHOPAEDIC TECHNOLOGIST 08/30/2017 Office visit Ray Guerra MD 07/19/2017 Surgery Ray Guerra MD 07/13/2017 Office visit Ray Guerra MD 06/22/2017 Procedures Ray Guerra MD 06/01/2017 Office visit Ray Guerra MD 03/31/2017 Office visit Eloisa Hamlin ORTHOPAEDIC TECHNOLOGIST 03/13/2017 Office visit Garland Rascon NP 09/06/2016 Silviano De Los Santos MD 03/26/2016 Office visit Eloisa Hamlin ORTHOPAEDIC TECHNOLOGIST 01/06/2015 Nurse visit Eloisa Hamlin ORTHOPAEDIC TECHNOLOGIST 12/30/2014 Office visit Eloisa Hamlin ORTHOPAEDIC TECHNOLOGIST 12/25/2014 Procedures Francisco Medina DO 12/11/2014 Procedures Francisco Medina DO 07/29/2014 Office visit Farida GILLESPIE RN 05/28/2014 Procedures Francisco Medina DO 05/14/2014 Office visit Francisco Medina DO 05/06/2014 Office visit Jon Alvarez 05/02/2014 Office visit Eloisa Hamlin ORTHOPAEDIC TECHNOLOGIST 01/31/2014 Office visit Jon Alvarez 12/19/2013 Office visit Eloisa Hamlin ORTHOPAEDIC TECHNOLOGIST 11/01/2013 Office visit Jon Alvarez 08/24/2013 Procedures Francisco Bouman DO 08/10/2013 Procedures Francisco Bouman DO 05/18/2013 Procedures Francisco Bouman DO 05/02/2013 Procedures Francisco Bouman DO 04/23/2013 Office visit Eloisa Hamlin ORTHOPAEDIC TECHNOLOGIST 10/28/2011 Office visit Eloisa Hamlin ORTHOPAEDIC TECHNOLOGIST 04/20/2011 Office visit Eloisa Boubacar ORTHOPAEDIC TECHNOLOGIST 02/04/2011 Office visit Dashawn Drew MD 12/23/2010 Office visit Dashawn Drew MD 11/19/2010 Office visit Dashawn Drew MD 11/12/2010 Office visit Dashawn Drew MD 10/22/2010 Office visit Dashawn Drew MD 10/21/2010 Hospital Faraz De Los Santos MD 09/21/2010 [facility] Faraz De Los Santos MD 07/27/2010 [...]
--- OUTSIDE RECORDS SUMMARY | 2019-10-10 12:01 | XMS REPORT ---
Author Author Shahbaz Guerra Organization [facility] Address [address] [place] [id number] Care Team Providers Care Media Production Manager Name Role Phone Ray Guerra PCP Tomy Rosado PreferredProvider Allergies and Adverse Reactions Name Reaction Notes NO KNOWN DRUG ALLERGIES Plan of Treatment Planned Activity Comments Planned Date Planned Time Plan/Goal BASIC METABOLIC PANEL 03/30/2016 12:00 AM URIC ACID. 03/30/2016 12:00 AM URIC ACID. 03/30/2016 12:00 AM PSA TOTAL 01/24/2019 12:00 AM Basic metabolic panel 06/29/2013 12:00 [...] sanofi pasteur PMC Fluzone > 12 Years [id number] In tramuscular Left Deltoid 01/26/2010 11/05/2008 999 Tdap 01/06/2015 Gl[employer] SKB BOOSTRIX [id number] Intramuscula r Right Deltoid [...] 2014 9:24AM Scar b 2014 9:24AM Lipoma b 2014 3:00PM Upper Respiratory Infections Jul 29 [...] 3:03PM Elevated PSA Oct 24 2018 3:31PM Payers Insurance Name Company Name Plan Name Plan Number Policy Number Jose G cy Group Number Start Date Medicare Part B Medicare [place] [id number] N/A [employer] Jiahe [id number] Sunday, 2017 BCBS Bcbs [facility] [id number] 2012 [employer] In c [id number] N/A Medicare Part B Medicare [place] [id number] N/A Med[employer]ico [id number] N/A Medicare Part A Medicare Part A [id number] Monday, 2011 Medico Insurance Company [employer]ico Insurance Company [id number] N/A Medicare Part A Medicare - Lab/Xray [id number] Monday, September 26, 2011 Aetna Medicare Supplement Aetna Medicare Supplement [id number] N/A Medicare RHC Medicare RHC [id number] N/A Medicare RHC Medicare RHC [id number] Steel September 26, 2011 History of Encounters Visit Date Visit Type Provider 10/24/2018 Office visit Ray Guerra MD 10/17/2018 Procedures Ray Guerra MD 10/12/2018 Office visit Ray Guerra MD 10/02/2018 Office visit DILMA MANZANARES VETERINARIAN 07/17/2018 Surgery Francisco Medina DO 07/04/2018 Office visit Francisco Medina DO 03/27/2018 Office visit Ray Guerra MD 03/23/2018 Office visit Eloisa Hamlin VETERINARIAN 08/30/2017 Office visit Ray Guerra MD 07/19/2017 Surgery Ray Guerra MD 07/13/2017 Office visit Ray Guerra MD 06/22/2017 Procedures Ray Guerra MD 06/01/2017 Office visit Ray Guerra MD 03/31/2017 Office visit Eloisa Hamlin VETERINARIAN 03/13/2017 Office visit Garland Rascon NP 09/06/2016 [facility] Faraz De Los Santos MD 03/26/2016 Office visit Eloisa Hamlin VETERINARIAN 01/06/2015 Nurse visit Eloisa Hamlin VETERINARIAN 12/30/2014 Office visit Eloisa Hamlin VETERINARIAN 12/25/2014 Procedures Francisco Medina DO 12/11/2014 Procedures Francisco Medina DO 07/29/2014 Office visit Farida GILLESPIE RN 05/28/2014 Procedures Francisco Boana DO 05/14/2014 Office visit Francisco Medina DO 05/06/2014 Office visit Jon Alvarez 05/02/2014 Office visit Eloisa Hamlin VETERINARIAN 01/31/2014 Office visit Jon Alvarez 12/19/2013 Office visit Eloisa Hamlin VETERINARIAN 11/01/2013 Office visit Jon Alvarez 08/24/2013 Procedures Francisco Bouman DO 08/10/2013 Procedures Francisco Bouman DO 05/18/2013 Procedures Francisco Bouman DO 05/02/2013 Procedures Francisco Bouman DO 04/23/2013 Office visit Eloisa Hamlin VETERINARIAN 10/28/2011 Office visit Eloisa Hamlin VETERINARIAN 04/20/2011 Office visit Eloisa Hamlin VETERINARIAN 02/04/2011 Office visit Dashawn Drew MD 12/23/2010 Office visit Dashawn Drew MD 11/19/2010 Office visit Dashawn Drew MD 11/12/2010 Office visit Dashawn Drew MD 10/22/2010 Office visit Dashawn Drew MD 10/21/2010 Hospital Faraz De Los Santos MD 09/21/2010 [facility] Faraz De Los Santos MD 07/27/2010 [...]
--- OUTSIDE RECORDS SUMMARY | 2019-10-10 12:01 | XMS REPORT ---
Author Author Shahbaz Guerra Organization [facility] Address [address] [place] [id number] Care Team Providers Care Cell Tender Helper Name Role Phone Ray Guerra PCP Tomy Rosado PreferredProvider Allergies and Adverse Reactions Name Reaction Notes NO KNOWN DRUG ALLERGIES Plan of Treatment Planned Activity Comments Planned Date Planned Time Plan/Goal BASIC METABOLIC PANEL 03/30/2016 12:00 AM URIC ACID. 03/30/2016 12:00 AM URIC ACID. 03/30/2016 12:00 AM Transrectal ultrasound examination 10/17/2018 12:00 AM Biopsy of prostate with transrectal ultrasound (TRUS) guidance 10/17/2018 12:00 AM Basic metabolic panel 06/29/2013 12:00 [...] days omeprazole 20 mg oral tablet,delayed release (/EC) 07/18/2018 08/01/2018 take 1 tablet by oral [...] HC BMI BSA BMI Percentile O2 Sat(%) 10/12/2018 10:22:00 AM 130 mmHg 78 mmHg 98 bpm 18 rpm 98.2 F 275 lbs 71 in 38.3543 kg/m 2.4997 m 96 % 10/02/2018 9:56:00 AM 116 mmHg 72 mmHg 85 bpm 18 rpm 97.7 F 275 lbs 71 in 38.35 kg/m2 2.50 m2 94 % 07/04/2018 2:26:00 PM 124 mmHg 65 mmHg 81 bpm 20 rpm 97.4 F 275 lbs 71 in 38.3543 kg/m 2.4997 m 03/27/2018 4:03:00 PM 135 mmHg 82 mmHg [...] F 240.375 lbs 70 in 34.49 kg/m2 2.3206 m 98 % 12/30/2014 8:49:00 AM 124 mmHg 74 mmHg 56 bpm 18 rpm 96.9 F 234.125 lbs 70 in 33.5931 kg/m 2.2902 m 97 % 12/25/2014 8:54:00 AM 112 mmHg 65 mmHg 76 bpm 16 rpm 98.1 F 231 lbs 70 in 33.14 kg/m2 2.27 m2 12/11/2014 1:19:00 PM 111 mmHg 67 mmHg 73 bpm 18 rpm 98.4 F 232 lbs 70 in 33.2882 kg/m 2.2798 m 07/29/2014 9:01:00 AM 119 mmHg 71 mmHg 53 bpm 20 rpm 97.4 F 232.4 lbs 71 in 32.41 kg/m2 2.30 m2 96 % 05/28/2014 9:34:00 AM 124 mmHg 76 mmHg 62 bpm 20 rpm 97.4 F 233 lbs 71 in 32.4966 kg/m 2.3009 m 05/14/2014 2:53:00 PM 108 mmHg 69 mmHg 76 bpm 16 rpm 98.3 F 235.312 lbs 71 in 32.82 kg/m2 2.31 m2 05/06/2014 9:27:00 AM 136 mmHg 68 mmHg [...] 10/12/2018 12:00 AM URINALYSIS AUTO W/SCOPE Reviewed 04/23/2013 12:00 AM COMPLETE CBC W/AUTO [...] NonAA 96 GFR AA 116 eGFR >60 mL/min/1.73meGFR AA* >60 TRIGLYCERIDES 83.0 mg/dLCHOLESTEROL 149.0 mg/dLHDL [...] NonAA 74 GFR AA 90 eGFR >60 mL/min/1.73meGFR AA* >60 URIC ACID 8.0 mg/dLMICROALBUMIN UR [...] NonAA 96 GFR AA 116 eGFR >60 mL/min/1.73meGFR AA* >60 URIC ACID 6.0 mg/dL 06/01/2017 [...] NonAA 95 GFR AA 115 eGFR >60 mL/min/1.73meGFR AA* >60 07/13/2017 10:45 AM COLOR YELLOW [...] ACID 6.5 WBC 6.2 RBC 4.59 HGB 15.5 HCT 44.6 MCV 97 MCH 33.8 MCHC 34.8 RDW SD 46 RDW CV 12.9 MPV 10.3 PLT 202 NRBC# 0.00 NRBC% 0.0 %NEUT 62.6 %LYMP 24.8 %MONO 8.8 %EOS 2.1 %BASO 0.6 #NEUT 3.90 #LYMP 1.55 #MONO 0.55 #EOS 0.13 #BASO 0.04 MANUAL DIFF NOT IND TRIGLYCERIDES 66 CHOLESTEROL 105 HDL 33 TOT CHOL/HDL 3.2 LDL (CALC) 59 GLUCOSE 128 SODIUM 139 POTASSIUM 4.2 CHLORIDE 107 CO2 24 BUN 20 CREATININE 0.8 SGOT/AST 21 SGPT/ALT 20 ALK PHOS 74 TOTAL PROTEIN 6.7 ALBUMIN 3.9 TOTAL BILI 0.8 CALCIUM 9.4 AGE 72 GFR NonAA 95 GFR AA 115 eGFR 95 eGFR AA* >60 09/27/2018 2:23 PM PSA TOTAL 5.28 10/12/2018 [...] sanofi pasteur PMC Fluzone > 12 Years 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 01/26/2010 11/05/2008 999 Tdap 01/06/2015 GlaxoSmithKline SKB BOOSTRIX [id number] Intramuscula r Right Deltoid [...] 9:24AM Benign neoplasm of skin of back b 2014 9:24AM Benign neoplasm of scalp b [...] specific antigen (PSA) Oct 17 2018 9:36AM Payers Insurance Name Company Name Plan Name Plan Number Policy Number Jose G cy Group Number Start Date Medicare Part B Medicare Of [place] [id number] N/A [employer] Elastra [id number] Sunday, 2017 [id number] 2012 [employer] In [id number] N/A Medicare Part B Medicare [place] [id number] N/A Medico Medico [id number] N/A Medicare Part A Medicare Part A [id number] Monday, 2011 Medico Insurance Company Medico Insurance Company [id number] N/A Medicare Part A Medicare - Lab/Xray [id number] Monday, September 26, 2011 Aetna Medicare Supplement Aetna Medicare Supplement [id number] N/A Medicare RHC Medicare RHC [id number] N/A Medicare C Medicare RHC [id number] Steel September 26, 2011 History of Encounters Visit Date Visit Type Provider 10/17/2018 Procedures Ray Guerra MD 10/12/2018 Office visit Ray Guerra MD 10/02/2018 Office visit DILMA MANZANARES ILLUSIONIST 07/17/2018 Surgery Francisco Reynoldsuman DO 07/04/2018 Office visit Francisco Medina DO 03/27/2018 Office visit Ray Guerra MD 03/23/2018 Office visit Eloisa Hamlin ILLUSIONIST 08/30/2017 Office visit Ray Guerra MD 07/19/2017 Surgery Ray Guerra MD 07/13/2017 Office visit Ray Guerra MD 06/22/2017 Procedures Ray Guerra MD 06/01/2017 Office visit Ray Guerra MD 03/31/2017 Office visit Eloisa Hamlin ILLUSIONIST 03/13/2017 Office visit Garland Rascon NP 09/06/2016 [facility] Faraz De Los Santos MD 03/26/2016 Office visit Eloisa Hamlin ILLUSIONIST 01/06/2015 Nurse visit Eloisa Hamlin ILLUSIONIST 12/30/2014 Office visit Eloisa Hamlin ILLUSIONIST 12/25/2014 Procedures Francisco Bouman DO 12/11/2014 Procedures Francisco Bouman DO 07/29/2014 Office visit Farida GILLESPIE RN 05/28/2014 Procedures Francisco Bouman DO 05/14/2014 Office visit Francisco Medina DO 05/06/2014 Office visit Jon Avlarez 05/02/2014 Office visit Eloisa Hamlin ILLUSIONIST 01/31/2014 Office visit Jon Alvarez 12/19/2013 Office visit Eloisa Hamlin ILLUSIONIST 11/01/2013 Office visit Jon Alvarez 08/24/2013 Procedures Francisco Bouman DO 08/10/2013 Procedures Francisco Bouman DO 05/18/2013 Procedures Francisco Bouman DO 05/02/2013 Procedures Francisco Bouman DO 04/23/2013 Office visit Eloisa Hamlin ILLUSIONIST 10/28/2011 Office visit Eloisa Hamlin ILLUSIONIST 04/20/2011 Office visit Eloisa Hamlin ILLUSIONIST 02/04/2011 Office visit Dashawn Drew MD 12/23/2010 Office visit Dashawn Drew MD 11/19/2010 Office visit Dashawn Drew MD 11/12/2010 Office visit Dashawn Drew MD 10/22/2010 Office visit Dashawn Drew MD 10/21/2010 Hospital Faraz De Los Santos MD 09/21/2010 [facility] Faraz De Los Santos MD 07/27/2010 [...]
--- OUTSIDE RECORDS SUMMARY | 2019-10-10 12:02 | XMS REPORT ---
Author Author Shahbaz Guerra Organization [facility] o[facility] Address [address] [place] [id number] Care Team Providers Care Sap Bpc Architect Name Role Phone Ray Guerra PCP Tomy Rosado PreferredProvider Allergies and Adverse Reactions Name Reaction Notes NO KNOWN DRUG ALLERGIES Plan of Treatment Planned Activity Comments Planned Date Planned Time Plan/Goal BASIC METABOLIC PANEL 03/30/2016 12:00 AM URIC ACID. 03/30/2016 12:00 AM URIC ACID. 03/30/2016 12:00 AM US [facility] 10/02/2018 12:00 AM URINALYSIS W/MICRO C&S IF IND 10/12/2018 12:00 AM Basic metabolic panel 06/29/2013 12:00 [...] 1 TABLE T BY MOUTH EVERY DAY Cipro 500 mg oral tablet 10/12/2018 10/14/2018 take 1 tablet (500 mg) by oral route 2 times per day for 2 days Name Start Date Expiration Date SIG [...] route every 12 hours for 14 days Discontinued Name Start Date Discontinued Date [...] kg/m2 2.50 m2 03/27/2018 4:03:00 PM 135 mmHg 82 mmHg 82 bpm 18 rpm 97.5 F 277.125 lbs 71 in 38.6507 kg/m 2.5094 m 95 % 03/23/2018 8:14:00 AM 122 mmHg 68 mmHg 64 bpm 18 rpm 98.2 F 274 lbs 70 in 39.31 kg/m2 2.48 m2 97 % 08/30/2017 11:15:00 AM 122 mmHg 82 mmHg 67 bpm 18 rpm 98.1 F 254.375 lbs 70 in 36.4986 kg/m 2.3872 m 96 % 07/13/2017 9:02:00 AM 118 mmHg 68 mmHg 95 bpm 18 rpm 98.1 F 267 lbs 70 in 38.31 kg/m2 2.45 m2 95 % 06/01/2017 3:07:00 PM 128 mmHg 82 mmHg 65 bpm 18 rpm 266.25 lbs 70 in 38.2025 kg/m 2.4423 m 95 % 03/31/2017 9:58:00 AM 133 mmHg 68 mmHg 64 bpm 18 rpm 97.8 F 263.5 lbs 70 in 37.81 kg/m2 2.43 m2 96 % 03/13/2017 1:17:00 PM 130 mmHg 60 mmHg 96 bpm 98.5 F 266 lbs 94 % 03/26/2016 8:16:00 AM 132 mmHg 72 mmHg 72 bpm 18 rpm 97.4 F 240.375 lbs 70 in 34.49 kg/m2 2.32 m2 98 % 12/30/2014 8:49:00 AM 124 mmHg [...] 10/02/2018 12:00 AM ExoDx Prostate (IntelliScore) Reviewed 04/23/2013 12:00 AM COMPLETE CBC W/AUTO [...] >60 09/27/2018 2:23 PM PSA TOTAL 5.28 History Of Immunizations Name Date Admin Mfg Name Mfg Code Trade Name Lot# Route Inj Vis Given Vis Pub CVX Influenza 01/09/2008 Not Entered NE Not Entered Not Entered Not Entered 03/28/2019 03/28/2019 999 Td 10/07/1999 sanofi pasteur PMC DECAVAC Intramuscular Not E ntered 03/28/2019 03/28/2019 999 Influenza 01/26/2010 sanofi pasteur PMC Fluzone > 12 Years [id number] In tramuscular Left Deltoid 01/26/2010 11/05/2008 999 [...] inflamed Feb 2014 9:24AM Seborrheic keratoses Feb 2014 9:24AM Benign neoplasm of skin of back b 2014 9:24AM Benign neoplasm of scalp Feb [...] cysts, acquired, bilateral Oct 12 2018 10:23AM Payers Insurance Name Company Name Plan Name Plan Number Policy Number Jose G cy Group Number Start Date Medicare Part B Medicare Of [place] [id number] N/A [employer] [id number] Sunday, 2017 [id number] 2012 [employer] [id number] N/A Medicare Part B Medicare Of [place] [id number] N/A Medico Medico [id number] N/A Medicare Part A Medicare Part A [id number] Monday, 2011 Medico Insurance [employer] Medico Insurance [employer] [id number] N/A Medicare Part A Medicare - Lab/Xray [id number] Monday, September 26, 2011 Aetna Medicare Supplement Aetna Medicare Supplement [id number] N/A Medicare RHC Medicare RHC [id number] N/A Medicare RHC Medicare RHC [id number] Steel September 26, 2011 History of Encounters Visit Date Visit Type Provider 10/12/2018 Office visit Ray Guerra MD 10/02/2018 Office visit DILMA MANZANARES BUYER GRAIN 07/17/2018 Surgery Francisco Medina DO 07/04/2018 Office visit Francisco Bouman DO 03/27/2018 Office visit Ray Guerra MD 03/23/2018 Office visit Eloisa Hamlin BUYER GRAIN 08/30/2017 Office visit Ray Guerra MD 07/19/2017 Surgery Ray Guerra MD 07/13/2017 Office visit Ray Guerra MD 06/22/2017 Procedures Ray Guerra MD 06/01/2017 Office visit Ray Guerra MD 03/31/2017 Office visit Eloisa Hamlin BUYER GRAIN 03/13/2017 Office visit Garland Rascon NP 09/06/2016 [facility] Faraz De Los Santos MD 03/26/2016 Office visit Eloisa Hamlin BUYER GRAIN 01/06/2015 Nurse visit Eloisa Hamlin BUYER GRAIN 12/30/2014 Office visit Eloisa Hamlin BUYER GRAIN 12/25/2014 Procedures Francisco Bouman DO 12/11/2014 Procedures Francisco Bouman DO 07/29/2014 Office visit Farida GILLESPIE RN 05/28/2014 Procedures Francisco Bouman DO 05/14/2014 Office visit Francisco Bouman DO 05/06/2014 Office visit Jon Alvarez 05/02/2014 Office visit Eloisa Hamlin BUYER GRAIN 01/31/2014 Office visit Jon Alvarez 12/19/2013 Office visit Eloisa Hamlin BUYER GRAIN 11/01/2013 Office visit Jon Alvarez 08/24/2013 Procedures Francisco Bouman DO 08/10/2013 Procedures Francisco Bouman DO 05/18/2013 Procedures Francisco Bouman DO 05/02/2013 Procedures Francisco Bouman DO 04/23/2013 Office visit Eloisa Hamlin BUYER GRAIN 10/28/2011 Office visit Eloisa Boubacar BUYER GRAIN 04/20/2011 Office visit Eloisa Hamlin BUYER GRAIN 02/04/2011 Office visit Dashawn Drew MD 12/23/2010 Office visit Dashawn Drew MD 11/19/2010 Office visit Dashawn Drew MD 11/12/2010 Office visit Dashawn Drew MD 10/22/2010 Office visit Dashawn Drew MD 10/21/2010 Hospital Faraz De Los Santos MD 09/21/2010 [facility] Faraz De Los Santos MD 07/27/2010 Office [...]
--- OUTSIDE RECORDS SUMMARY | 2019-10-10 12:02 | XMS REPORT ---
Author Author Shahbaz MANZANARES Organization [facility] Physicians oup Address [address] [place], [place] [id number] Care Team Providers Care Plant And Equipment Worker Name Role Phone DILMA MANZANARES PCP Tomy Rosado PreferredProvider Allergies and Adverse Reactions Name Reaction Notes NO KNOWN DRUG ALLERGIES Plan of Treatment Planned Activity Comments Planned Date Planned Time Plan/Goal BASIC METABOLIC PANEL 03/30/2016 12:00 AM URIC ACID. 03/30/2016 12:00 AM URIC ACID. 03/30/2016 12:00 AM [facility] 10/02/2018 12:00 AM Basic metabolic panel 06/29/2013 12:00 [...] HC BMI BSA BMI Percentile O2 Sat(%) 10/02/2018 9:56:00 AM 116 mmHg 72 mmHg [...] 12:00 AM ASSAY OF PSA TOTAL Reviewed 04/23/2013 12:00 AM COMPLETE CBC W/AUTO [...] sanofi pasteur PMC Fluzone > 12 Years [id number] In tramuscular Left Deltoid 01/26/2010 11/05/2008 999 [...] Benign neoplasm of skin of lower limb May 06 2014 9:24AM Actinic keratosis May 06 2014 9:24AM Seborrheic keratoses, inflamed May 06 2014 9:24AM Seborrheic keratoses May 06 2014 9:24AM Benign neoplasm of skin of back May 06 2014 9:24AM Benign neoplasm of scalp May 06 2014 9:24AM Lentigines May 06 2014 9:24AM Scar May 06 2014 9:24AM Lipoma May 14 2014 3:00PM [...] 9:59AM Renal cyst Oct 02 2018 9:59AM Payers Insurance Name Company Name Plan Name Plan Number Policy Number Jose G cy Group Number Start Date Medicare Part B Medicare Of [place] [id number] N/A [facility] Insurance [employer] [id number] Sunday, 2017 BCBS Bcbs [facility] [id number] 2012 [employer] In c [id number] N/A Medicare Part B Medicare Of [place] [id number] N/A Medico Medico [id number] N/A Medicare Part A Medicare Part A [id number] Monday, 2011 Medico Insurance [employer] Medico Insurance Company [id number] N/A Medicare Part A Medicare - Lab/Xray [id number] Monday, September 26, 2011 Aetna Medicare Supplement Aetna Medicare Supplement [id number] N/A Medicare RHC Medicare RHC [id number] N/A Medicare [facility] Medicare RHC [id number] Steel September 26, 2011 History of Encounters Visit Date Visit Type Provider 10/02/2018 Office visit DILMA MANZANARES RURAL CARRIER 07/17/2018 Surgery Francisco Medina DO 07/04/2018 Office visit Francisco Medina DO 03/27/2018 Office visit Ray Guerra MD 03/23/2018 Office visit Eloisa Hamlin RURAL CARRIER 08/30/2017 Office visit Ray Guerra MD 07/19/2017 Surgery Ray Guerra MD 07/13/2017 Office visit Ray Guerra MD 06/22/2017 Procedures Ray Guerra MD 06/01/2017 Office visit Ray Guerra MD 03/31/2017 Office visit Eloisa Hamlin RURAL CARRIER 03/13/2017 Office visit Garland Rascon NP 09/06/2016 [facility] Faraz De Los Santos MD 03/26/2016 Office visit Eloisa Hamlin RURAL CARRIER 01/06/2015 Nurse visit Eloisa Hamlin RURAL CARRIER 12/30/2014 Office visit Eloisa Hamlin RURAL CARRIER 12/25/2014 Procedures Francisco Medina DO 12/11/2014 Procedures Francisco Bouman DO 07/29/2014 Office visit Farida GILLESPIE RN 05/28/2014 Procedures Francisco Bouman DO 05/14/2014 Office visit Francisco Bouman DO 05/06/2014 Office visit Jon Alvarez 05/02/2014 Office visit Eloisa Hamlin RURAL CARRIER 01/31/2014 Office visit Jon Alvarez 12/19/2013 Office visit Eloisa Hamlin RURAL CARRIER 11/01/2013 Office visit Jon Alvarez 08/24/2013 Procedures Francisco Bouman DO 08/10/2013 Procedures Francisco Bouman DO 05/18/2013 Procedures Francisco Bouman DO 05/02/2013 Procedures Francisco Bouman DO 04/23/2013 Office visit Eloisa Hamlin RURAL CARRIER 10/28/2011 Office visit Eloisa Boubacar RURAL CARRIER 04/20/2011 Office visit Eloisa Hamlin RURAL CARRIER 02/04/2011 Office visit Dashawn Drew MD 12/23/2010 Office visit Dashawn Drew MD 11/19/2010 Office visit Dashawn Drew MD 11/12/2010 Office visit Dashawn Drew MD 10/22/2010 Office visit Dashawn Drew MD 10/21/2010 Hospital Faraz De Los Santos MD 09/21/2010 [facility] Faraz De Los Santos MD [...]
--- OUTSIDE RECORDS SUMMARY | 2019-10-10 12:03 | XMS REPORT ---
Author Author Shahbaz MANZANARES Organization [facility] Physicians oup Address [address] [place], [place] [id number] Care Team Providers Care Transit Planning Director Name Role Phone DILMA MANZANARES PCP Tomy Rosado PreferredProvider Allergies and Adverse Reactions Name Reaction Notes NO KNOWN DRUG ALLERGIES Plan of Treatment Planned Activity Comments Planned Date Planned Time Plan/Goal BASIC METABOLIC PANEL 03/30/2016 12:00 AM URIC ACID. 03/30/2016 12:00 AM URIC ACID. 03/30/2016 12:00 AM US ABDOMINAL COMPLETE 10/02/2018 12:00 AM Basic metabolic panel 06/29/2013 [...] sanofi pasteur PMC Fluzone > 12 Years [id number] In tramuscular Left Deltoid 01/26/2010 11/05/2008 999 [...] of scalp May 06 2014 9:24AM Lentigines b 2014 9:24AM Scar May 06 2014 9:24AM [...] Date Medicare Part B Medicare Of [place] [id number] N/A [employer] [id number] Sunday, 2017 BCBS Bcbs [facility] [id number] 2012 [employer] In c [id number] N/A Medicare Part B Medicare Of [place] [id number] N/A Medico Medico [id number] N/A Medicare Part A Medicare Part A [id number] Monday, 2011 Medico Insurance [employer] Medico Insurance Company [id number] N/A Medicare Part A Medicare - Lab/Xray [id number] Monday, September 26, 2011 Aetna Medicare Supplement Aetna Medicare Supplement [id number] N/A Medicare RHC Medicare RHC [id number] N/A Medicare [facility] Medicare RHC [id number] Steel September 26, 2011 History of Encounters Visit Date Visit Type Provider 10/02/2018 Office visit DILMA MANZANARES SENIOR SOLUTIONS ENGINEER 07/17/2018 Surgery Francisco Medina DO 07/04/2018 Office visit Francisco Medina DO 03/27/2018 Office visit Ray Guerra MD 03/23/2018 Office visit Eloisa Hamlin SENIOR SOLUTIONS ENGINEER 08/30/2017 Office visit Ray Guerra MD 07/19/2017 Surgery Ray Guerra MD 07/13/2017 Office visit Ray Guerra MD 06/22/2017 Procedures Ray Guerra MD 06/01/2017 Office visit Ray Guerra MD 03/31/2017 Office visit Eloisa Hamlin SENIOR SOLUTIONS ENGINEER 03/13/2017 Office visit Garland Rascon NP 09/06/2016 [facility] Faraz De Los Santos MD 03/26/2016 Office visit Eloisa Hamlin SENIOR SOLUTIONS ENGINEER 01/06/2015 Nurse visit Eloisa Hamlin SENIOR SOLUTIONS ENGINEER 12/30/2014 Office visit Eloisa Hamlin SENIOR SOLUTIONS ENGINEER 12/25/2014 Procedures Francisco Medina DO 12/11/2014 Procedures Francisco Bouman DO 07/29/2014 Office visit Farida GILLESPIE RN 05/28/2014 Procedures Francisco Bouman DO 05/14/2014 Office visit Francisco Bouman DO 05/06/2014 Office visit Jon Alvarez 05/02/2014 Office visit Eloisa Boubacar SENIOR SOLUTIONS ENGINEER 01/31/2014 Office visit Jon Alvarez 12/19/2013 Office visit Eloisa Hamlin SENIOR SOLUTIONS ENGINEER 11/01/2013 Office visit Jon Alvarez 08/24/2013 Procedures Francisco Bouman DO 08/10/2013 Procedures Francisco Bouman DO 05/18/2013 Procedures Francisco Bouman DO 05/02/2013 Procedures Francisco Bouman DO 04/23/2013 Office visit Eloisa Hamlin SENIOR SOLUTIONS ENGINEER 10/28/2011 Office visit Eloisa Hamlin SENIOR SOLUTIONS ENGINEER 04/20/2011 Office visit Eloisa Hamlin SENIOR SOLUTIONS ENGINEER 02/04/2011 Office visit Dashawn Drew MD 12/23/2010 Office visit Dashawn Drew MD 11/19/2010 Office visit Dashawn Drew MD 11/12/2010 Office visit Dashawn Drew MD 10/22/2010 Office visit Dashawn Drew MD 10/21/2010 Hospital Faraz De Los Santos MD 09/21/2010 [facility] Faraz De Los Santos MD 07/27/2010 Office visit Amomn Wilson DO 01/26/2010 Office visit Ammon Wilson DO 10/28/2009 Procedures Ammon Wilson DO 10/24/2009 Office visit Ammon Wilson DO 10/04/2009 Laboratory Dusty Ford MD 10/03/2009 Office visit Ammon Wilson DO 10/02/2009 Laboratory Dusty Ford MD 09/05/2009 Office visit Rudolph Betancourt DO 09/01/2009 Laboratory Dusty Ford MD 12/18/2008 Office visit Lana MCCORMICK
--- OUTSIDE RECORDS SUMMARY | 2019-10-10 12:03 | XMS REPORT ---
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 Tobacco Never [...] sanofi pasteur PMC Fluzone > 12 Years [id number] In tramuscular Left Deltoid 01/26/2010 11/05/2008 999 Tdap 01/06/2015 GlaxMultifonds SKB BOOSTRIX [id number] Intramuscula r Right Deltoid [...] 2014 9:24AM Lentigines Feb 2014 9:24AM Scar May 06 2014 9:24AM [...] 2:28PM Elevated PSA Sep 27 2018 9:56AM Payers Insurance Name Company Name Plan Name Plan Number Policy Number Jose G cy Group Number Start Date Medicare Part B Medicare [place] [id number] N/A Equitable National Life Insurance Inform[employer] Life [id number] Sunday, 2017 BCBS Bcbs [place] [id number] 2012 Clarkfarida Thompson [employer] [facility] Clark Donna [employer] [place] [id number] N/A Medicare Part B Medicare [place] [id number] N/A Medico Medico [id number] N/A Medicare Part A Medicare Part A [id number] Monday, 2011 Medico Insurance Company Medico [employer] Company [id number] N/A Medicare Part A Medicare - Lab/Xray [id number] Monday, September 26, 2011 Aetna Medicare Supplement Aetna Medicare Supplement [id number] N/A Medicare RHC Medicare RHC [id number] N/A Medicare RHC Medicare RHC [id number] Steel September 26, 2011 History of Encounters Visit Date Visit Type Provider 07/17/2018 Surgery Francisco Medina DO 07/04/2018 Office visit Francisco Medina DO 03/27/2018 Office visit Ray Guerra MD 03/23/2018 Office visit Eloisa Hamlin INCINERATOR OPERATOR 08/30/2017 Office visit Ray Guerra MD 07/19/2017 Surgery Ray Guerra MD 07/13/2017 Office visit Ray Guerra MD 06/22/2017 Procedures Ray Guerra MD 06/01/2017 Office visit Ray Guerra MD 03/31/2017 Office visit Eloisa Hamlin INCINERATOR OPERATOR 03/13/2017 Office visit Garland Rascon NP 09/06/2016 [facility] Faraz De Los Santos MD 03/26/2016 Office visit Eloisa Hamlin INCINERATOR OPERATOR 01/06/2015 Nurse visit Eloisa Hamlin INCINERATOR OPERATOR 12/30/2014 Office visit Eloisa Hamlin INCINERATOR OPERATOR 12/25/2014 Procedures Francisco Medina DO 12/11/2014 Procedures Francisco Medina DO 07/29/2014 Office visit Farida GILLESPIE RN 05/28/2014 Procedures Francisco Medina DO 05/14/2014 Office visit Francisco Medina DO 05/06/2014 Office visit Jon Alvarez 05/02/2014 Office visit Eloisa Hamlin INCINERATOR OPERATOR 01/31/2014 Office visit Jon Alvarez 12/19/2013 Office visit Eloisa Boubacar INCINERATOR OPERATOR 11/01/2013 Office visit Jon Alvarez 08/24/2013 Procedures Francisco Bouman DO 08/10/2013 Procedures Francisco Bouman DO 05/18/2013 Procedures Francisco Bouman DO 05/02/2013 Procedures Francisco Bouman DO 04/23/2013 Office visit Eloisa Hamlin INCINERATOR OPERATOR 10/28/2011 Office visit Eloisa Hamlin INCINERATOR OPERATOR 04/20/2011 Office visit Eloisa Boubacar INCINERATOR OPERATOR 02/04/2011 Office visit Dashawn Drew MD 12/23/2010 Office visit Dashawn Drew MD 11/19/2010 Office visit Dashawn Drew MD 11/12/2010 Office visit Dashawn Drew MD 10/22/2010 Office visit Dashawn Drew MD 10/21/2010 [facility] Faraz De Los Santos MD 09/21/2010 [facility] Faraz De Los Santos MD 07/27/2010 Office visit Ammon Wilson DO 01/26/2010 Office visit Ammon Wilson DO 10/28/2009 Procedures Ammon Wilson DO 10/24/2009 Office visit Ammon Wilosn DO 10/04/2009 Laboratory Dusty Ford MD 10/03/2009 Office visit Ammon Wilson DO 10/02/2009 Laboratory Dusty Ford MD 09/05/2009 Office visit Rudolph Betancourt DO 09/01/2009 Laboratory Dusty Ford MD 12/18/2008 Office visit Lana MCCORMICK
--- OUTSIDE RECORDS SUMMARY | 2019-10-10 12:04 | XMS REPORT ---
Author Author Shahbaz Medina Organization [facility] oup Address [address] [place] [id number] Care Team Providers Care Conductor/Brakeman Name Role Phone Francisco Medina PCP Tomy Rosado PreferredProvider Allergies and Adverse Reactions Name Reaction Notes NO KNOWN DRUG ALLERGIES Plan of Treatment Planned Activity Comments Planned Date Planned Time Plan/Goal BASIC METABOLIC PANEL 03/30/2016 12:00 AM URIC ACID. 03/30/2016 12:00 AM URIC ACID. 03/30/2016 12:00 AM PSA TOTAL 09/27/2018 12:00 AM Basic metabolic panel 06/29/2013 12:00 [...] 12:00 AM ASSAY OF BLOOD/URIC ACID Reviewed 04/23/2013 12:00 AM COMPLETE CBC W/AUTO [...] Diagnosis melanoma in situ Treatment Excision - [facility] Tx Date 05/02/13 Cancer Stage Stage 0 [...] AA 115 eGFR 95 eGFR AA* >60 History Of Immunizations Name Date Admin Mfg Name Mfg Code Trade Name Lot# Route Inj Vis Given Vis Pub CVX Influenza 01/09/2008 Not Entered NE Not Entered Not Entered Not Entered 03/28/2019 03/28/2019 999 Td 10/07/1999 sanofi pasteur PMC DECAVAC Intramuscular Not E ntered 03/28/2019 03/28/2019 999 Influenza 01/26/2010 sanofi pasteur PMC Fluzone > 12 Years [id number] In tramuscular Left Deltoid 01/26/2010 11/05/2008 999 [...] Date Medicare Part B Medicare Of [place] [id number] N/A Equitable National Life Insurance Company [employer] PBC Life [id number] Sunday, 2017 BCBS Bcbs [facility] [id number] 2012 Amber Thompson [employer] In c [id number] N/A Medicare Part B Medicare [place] [id number] N/A Medico Medico [id number] N/A Medicare Part A Medicare Part A [id number] Monday, 2011 Medico Insurance Company Medico Insurance Company [id number] N/A Medicare Part A Medicare - Lab/Xray [id number] Monday, September 26, 2011 Aetna Medicare Supplement Aetna Medicare Supplement [id number] N/A Medicare RHC Medicare RHC [id number] N/A Medicare RHC Medicare RHC [id number] Steel September 26, 2011 History of Encounters Visit Date Visit Type Provider 07/17/2018 Surgery Francisco Medina DO 07/04/2018 Office visit Francisco Medina DO 03/27/2018 Office visit Ray Guerra MD 03/23/2018 Office visit Eloisa Hamlin CHARRER 08/30/2017 Office visit Ray Guerra MD 07/19/2017 Surgery Ray Guerra MD 07/13/2017 Office visit Ray Guerra MD 06/22/2017 Procedures Ray Guerra MD 06/01/2017 Office visit Ray Guerra MD 03/31/2017 Office visit Eloisa Hamlin CHARRER 03/13/2017 Office visit Garland Rascon NP 09/06/2016 [facility] Faraz De Los Santos MD 03/26/2016 Office visit Eloisa Hamlin CHARRER 01/06/2015 Nurse visit Eloisa Hamlin CHARRER 12/30/2014 Office visit Eloisa Hamlin CHARRER 12/25/2014 Procedures Francisco Medina DO 12/11/2014 Procedures Francisco Medina DO 07/29/2014 Office visit Farida GILLESPIE RN 05/28/2014 Procedures Francisco Medina DO 05/14/2014 Office visit Francisco Medina DO 05/06/2014 Office visit Jon Alvarez 05/02/2014 Office visit Eloisa Hamlin APRN 01/31/2014 Office visit Jon Alvarez 12/19/2013 Office visit Eloisa Hamlin CHARRER 11/01/2013 Office visit Jon Alvarez 08/24/2013 Procedures Francisco Bouman DO 08/10/2013 Procedures Francisco Bouman DO 05/18/2013 Procedures Francisco Bouman DO 05/02/2013 Procedures Francisco Bouman DO 04/23/2013 Office visit Eloisa Hamlin CHARRER 10/28/2011 Office visit Eloisa Hamlin CHARRER 04/20/2011 Office visit Eloisa Hamlin CHARRER 02/04/2011 Office visit Dashawn Drew MD 12/23/2010 Office visit Dashawn Drew MD 11/19/2010 Office visit Dashawn Drew MD 11/12/2010 Office visit Dashawn Drew MD 10/22/2010 Office visit Dashawn Drew MD 10/21/2010 Hospital Faraz De Los Santos MD 09/21/2010 [facility] Faraz De Los Santos MD 07/27/2010 Office visit Ammon Wilson DO 01/26/2010 Office visit Ammon Wilson DO 10/28/2009 Procedures mAmon Wilson DO 10/24/2009 Office visit Ammon Wilson DO 10/04/2009 Laboratory Dusty Ford MD 10/03/2009 Office visit Ammon Wilson DO 10/02/2009 Laboratory Dusty Ford MD 09/05/2009 Office visit Rudolph Betancourt DO 09/01/2009 Laboratory Dusty Ford MD 12/18/2008 Office visit Lana MCCORMICK
--- OUTSIDE RECORDS SUMMARY | 2019-10-10 12:05 | XMS REPORT ---
Author Author Shahbaz Medina [facility] ou Address [address] [place] [id number] Care Team Providers Care Livestock Agent Name Role Phone Francisco Medina PCP Tomy [...] same meal each day for 30 days Discontinued Name Start Date Discontinued Date SIG Comments Benicar HCT 40-25 mg oral tablet 09/07/2009 10/03/2009 take 1 tablet by oral route once daily for 90 days ibuprofen 200 mg oral tablet 10/28/2011 prn aspirin 325 mg oral tablet 10/03/2009 05/02/2013 take 1 tablet by oral route daily hydrocodone-acetaminophen 10-500 mg oral tablet 10/28/19 12 / to 1 q4h prn Doc-Q-Lace 100 mg [...] sanofi pasteur PMC Fluzone > 12 Years [id number] In tramuscular Left Deltoid 01/26/2010 11/05/2008 999 Tdap 01/06/2015 GlaxHead Held High[employer] SKB BOOSTRIX [id number] Intramuscula r Right Deltoid [...] Colon cancer screening Jul 04 2018 2:28PM Payers Insurance Name Company Name Plan Name Plan Number Policy Number Jose G cy Group Number Start Date Medicare Part B Medicare Of [place] [id number] N/A [email or web address] Insurance [employer] [id number] Sunday, 2017 BCBS Bcbs [facility] [id number] 2012 Clarkfarida Thompson [employer] Amber Thompson [employer] [place] [id number] N/A Medicare Part B Medicare [place] [id number] N/A Medico Medico [id number] N/A Medicare Part A Medicare Part A [id number] Monday, 2011 Medico Insurance Company Medico Insurance Company [id number] N/A Medicare Part A Medicare - Lab/Xray [id number] Monday, September 26, 2011 Aetna Medicare Supplement Aetna Medicare Supplement [id number] N/A Medicare RHC Medicare RHC [id number] N/A Medicare RHC Medicare RHC [id number] Steel September 26, 2011 History of Encounters Visit Date Visit Type Provider 07/04/2018 Office visit Francisco Medina DO 03/27/2018 Office visit Ray Guerra MD 03/23/2018 Office visit Eloisa Hamlin KIER HAND 08/30/2017 Office visit Ray Guerra MD 07/19/2017 Surgery Ray Guerra MD 07/13/2017 Office visit Ray Guerra MD 06/22/2017 Procedures Ray Guerra MD 06/01/2017 Office visit Ray Guerra MD 03/31/2017 Office visit Eloisa Hamlin KIER HAND 03/13/2017 Office visit Garland Rascon NP 09/06/2016 [facility] Faraz De Los Santos MD 03/26/2016 Office visit Eloisa Hamlin KIER HAND 01/06/2015 Nurse visit Eloisa Hamlin KIER HAND 12/30/2014 Office visit Eloisa Hamlin KIER HAND 12/25/2014 Procedures Francisco Bouman DO 12/11/2014 Procedures Francisco Bouman DO 07/29/2014 Office visit Farida GILLESPIE RN 05/28/2014 Procedures Francisco Bouman DO 05/14/2014 Office visit Francisco Medina DO 05/06/2014 Office visit Jon Alvarez 05/02/2014 Office visit Eloisa Hamlin KIER HAND 01/31/2014 Office visit Jon Alvarez 12/19/2013 Office visit Eloisa Hamlin KIER HAND 11/01/2013 Office visit Jon Alvarez 08/24/2013 Procedures Francisco Bouman DO 08/10/2013 Procedures Francisco Bouman DO 05/18/2013 Procedures Francisco Bouman DO 05/02/2013 Procedures Francisco Bouman DO 04/23/2013 Office visit Eloisa Hamlin KIER HAND 10/28/2011 Office visit Eloisa Hamlin KIER HAND 04/20/2011 Office visit Eloisa Hamlin KIER HAND 02/04/2011 Office visit Dashawn Drew MD 12/23/2010 [...]
--- OUTSIDE RECORDS SUMMARY | 2019-10-10 12:05 | XMS REPORT ---
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 Tobacco Never [...] Diagnosis melanoma in situ Treatment Excision - [facility] Tx Date 05/02/13 Cancer Stage Stage 0 [...] sanofi pasteur PMC Fluzone > 12 Years [id number] In tramuscular Left Deltoid 01/26/2010 11/05/2008 999 Tdap 01/06/2015 GlaxoSmDarwin Labine SKB BOOSTRIX [id number] Intramuscula r Right Deltoid [...] Date Medicare Part B Medicare [place] [id number] N/A Equitable National Life Insurance Company [employer] [id number] Sunday, 2017 BCBS Bcbs [facility] [id number] 2012 [employer] In c [id number] N/A Medicare Part B Medicare [place] [id number] N/A Medico Medico [id number] N/A Medicare Part A Medicare Part A [id number] Monday, 2011 Medico Insurance Company Medico Insurance Company [id number] N/A Medicare Part A Medicare - Lab/Xray [id number] Monday, September 26, 2011 Aetna Medicare Supplement Aetna Medicare Supplement [id number] N/A Medicare RHC Medicare RHC [id number] N/A Medicare RHC Medicare RHC [id number] Steel September 26, 2011 History of Encounters Visit Date Visit Type Provider 07/17/2018 Surgery Francisco Medina DO 07/04/2018 Office visit Francisco Medina DO 03/27/2018 Office visit Ray Guerra MD 03/23/2018 Office visit Eloisa Hamlin A OPERATOR 08/30/2017 Office visit Ray Guerra MD 07/19/2017 Surgery Ray Guerra MD 07/13/2017 Office visit Ray Guerra MD 06/22/2017 Procedures Ray Guerra MD 06/01/2017 Office visit Ray Guerra MD 03/31/2017 Office visit Eloisa Hamlin A OPERATOR 03/13/2017 Office visit Garland Rascon NP 09/06/2016 [facility] Faraz De Los Santos MD 03/26/2016 Office visit Eloisa Hamlin A OPERATOR 01/06/2015 Nurse visit Eloisa Hamlin A OPERATOR 12/30/2014 Office visit Eloisa Hamlin A OPERATOR 12/25/2014 Procedures Francisco Medina DO 12/11/2014 Procedures Francisco Medina DO 07/29/2014 Office visit Farida GILLESPIE RN 05/28/2014 Procedures Francisco Carol DO 05/14/2014 Office visit Francisco Medina DO 05/06/2014 Office visit Jon Alvarez 05/02/2014 Office visit Eloisa Hamlin A OPERATOR 01/31/2014 Office visit Jon Alvarez 12/19/2013 Office visit Eloisa Hamlin A OPERATOR 11/01/2013 Office visit Jon Alvarez 08/24/2013 Procedures Francisco Bouman DO 08/10/2013 Procedures Francisco Bouman DO 05/18/2013 Procedures Francisco Bouman DO 05/02/2013 Procedures Francisco Bouman DO 04/23/2013 Office visit Eloisa Hamlin A OPERATOR 10/28/2011 Office visit Eloisa Hamlin A OPERATOR 04/20/2011 Office visit Eloisa Hamlin A OPERATOR 02/04/2011 Office visit Dashawn Drew MD 12/23/2010 Office visit Dashawn Drew MD 11/19/2010 Office visit Dashawn Drew MD 11/12/2010 Office visit Dashawn Drew MD 10/22/2010 Office visit Dashawn Drew MD 10/21/2010 Hospital Faraz De Los Santos MD 09/21/2010 [facility] Faraz De Los Santos MD [...]
--- OUTSIDE RECORDS SUMMARY | 2019-10-10 12:06 | XMS REPORT ---
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 Tobacco Never [...] sanofi pasteur PMC Fluzone > 12 Years [id number] In tramuscular Left Deltoid 01/26/2010 11/05/2008 999 Tdap 01/06/2015 GlaxB2Brevine SKB BOOSTRIX [id number] Intramuscula r Right Deltoid [...] 2010 10:39AM Bronchitis Dec 23 2010 10:22AM Bronchitis Feb 04 2011 3:11PM Cellulitis Apr [...] lower limb b 2014 9:24AM Actinic keratosis b 2014 9:24AM Seborrheic keratoses, inflamed b 2014 [...] 4:04PM Elevated PSA Mar 27 2018 4:04PM Payers Insurance Name Company Name Plan Name Plan Number Policy Number Jose G cy Group Number Start Date Medicare Part B Medicare [place] [id number] N/A [id number] Insurance [employer] [id number] Sunday, 2017 BCBS Bcbs [facility] [id number] 2012 [employer] In c [id number] N/A Medicare Part B Medicare [place] [id number] N/A Medico Medico [id number] N/A Medicare Part A Medicare Part A [id number] Monday, 2011 Medico Insurance Company Medico Insurance Company [id number] N/A Medicare Part A Medicare - Lab/Xray [id number] Monday, September 26, 2011 Aetna Medicare Supplement Aetna Medicare Supplement [id number] N/A Medicare RHC Medicare RHC [id number] N/A Medicare RHC Medicare RHC [id number] Milvia zambrano, September 26, 2011 History of Encounters Visit Date Visit Type Provider 07/04/2018 Office visit Francisco Medina DO 03/27/2018 Office visit Ray Guerra MD 03/23/2018 Office visit Eloisa Hamlin HAND CLOTH CUTTER 08/30/2017 Office visit Ray Guerra MD 07/19/2017 Surgery Ray Guerra MD 07/13/2017 Office visit Ray Guerra MD 06/22/2017 Procedures Ray Guerra MD 06/01/2017 Office visit Ray Guerra MD 03/31/2017 Office visit Eloisa Hamlin HAND CLOTH CUTTER 03/13/2017 Office visit Garland Rascon NP 09/06/2016 Hospital Faraz De Los Santos MD 03/26/2016 Office visit Eloisa Hamlin HAND CLOTH CUTTER 01/06/2015 Nurse visit Eloisa Hamlin HAND CLOTH CUTTER 12/30/2014 Office visit Eloisa Hamlin HAND CLOTH CUTTER 12/25/2014 Procedures Francisco Bouman DO 12/11/2014 Procedures Francisco Bouman DO 07/29/2014 Office visit Farida GILLESPIE RN 05/28/2014 Procedures Francisco Bouman DO 05/14/2014 Office visit Francisco Medina DO 05/06/2014 Office visit Jon Alvarez 05/02/2014 Office visit Eloisa Hamlin HAND CLOTH CUTTER 01/31/2014 Office visit Jon Alvarez 12/19/2013 Office visit Eloisa Hamlin HAND CLOTH CUTTER 11/01/2013 Office visit Jon Alvarez 08/24/2013 Procedures Francisco Boana DO 08/10/2013 Procedures Francisco Bouman DO 05/18/2013 Procedures Francisco Bouman DO 05/02/2013 Procedures Francisco Bouman DO 04/23/2013 Office visit Eloisa Hamlin HAND CLOTH CUTTER 10/28/2011 Office visit Eloisa Hamlin HAND CLOTH CUTTER 04/20/2011 Office visit Eloisa Hamlin HAND CLOTH CUTTER 02/04/2011 Office visit Dashawn Drew MD 12/23/2010 Office visit aDshawn Drew MD 11/19/2010 Office visit Dashawn Drew MD 11/12/2010 Office visit Dashawn Drew MD 10/22/2010 Office visit Dashawn Drew MD 10/21/2010 Hospital Faraz De Los Santos MD 09/21/2010 [facility] Faraz De Los Santos MD 07/27/2010 [...]
--- OUTSIDE RECORDS SUMMARY | 2019-10-10 12:06 | XMS REPORT ---
Author Author Shahbaz Guerra Organization [facility] Address [address] [place] [id number] Care Team Providers Care Head Of Strategy Name Role Phone Ray Guerra PCP Tomy [...] (81 mg) by oral route once daily lisinopril 10 mg oral tablet 12/30/2014 TAKE 1 TABLE T BY MOUTH EVERY DAY Lipitor 20 mg oral tablet 01/02/2015 take 1 tablet (20 mg) by oral route once daily at bedtime tamsulosin 0.4 mg oral capsule,extended release 24hr 06/22/2017 take 1 capsule (0.4 mg) by oral route once daily 1/2 hour following the same meal each day for 30 days allopurinol 100 mg oral tablet 03/23/2018 TAKE [...] oral route once daily for 4 days allopurinol 100 mg oral tablet 12/19/2013 12/14/2014 t brooks 1 tablet (100 mg) by oral route once daily for 90 days amoxicillin 500 mg oral capsule 07/29/2014 [...] oral tablets,dose pack 03/13/2017 take as directed Discontinued Name Start Date Discontinued Date SIG [...] 05/10/2013 Diabetes Mellitus, Type II Active 12/19/2013 Lumbar back pain Active 12/19/2013 Benign Neoplasm Of Skin Of Lower Limb Active Actinic keratosis Active 05/06/2014 Seborrheic keratoses, inflamed Active 5 Seborrheic keratoses Active 05/06/2014 Benign neoplasm of skin of back Active 05/06/19 15 Benign Neoplasm Of Scalp Active 05/06/2014 Lentigines Active 05/06/2014 Scar Active 05/06/2014 Lipoma Active 05/14/2014 Actinic keratosis Active 12/11/2014 Lentigo Active 12/13/2014 Vital Signs Date Time BP-Sys(mm[Hg] BP-Sowmya(mm[Hg]) HR(bpm) RR(rpm) Temp WT HT HC BMI BSA BMI Percentile O2 Sat(%) 03/27/2018 4:03:00 PM 135 mmHg 82 mmHg [...] rpm 97.3 F 262.5 lbs 70 in 37.6644 kg/m 2.43 m2 95 % 10/24/2009 1:24:00 PM 120 mmHg 88 mmHg 96 bpm 20 rpm 98 F 258.5 lbs 70 in 37.09 kg/m2 2.4065 m 95 % 10/03/2009 2:24:00 PM 120 mmHg 90 mmHg 90 bpm 20 rpm 98.6 F 255.5 lbs 70 in 36.6601 kg/m 2.39 m2 96 % 09/05/2009 8:34:00 AM 110 mmHg 76 mmHg 68 bpm 18 rpm 267 lbs 70 in 38.31 kg/m2 2.4457 m Social History Name Description Comments [...] 12:00 AM COMPLETE CBC W/AUTO DIFF WBC Returned 03/23/2018 12:00 AM COMPREHEN METABOLIC PANEL Returned 03/23/2018 12:00 AM LIPID PANEL Returned 03/23/2018 12:00 AM GLYCOSYLATED HEMOGLOBIN TEST Returned 03/23/2018 12:00 AM ASSAY OF BLOOD/URIC ACID Returned 04/23/2013 12:00 AM COMPLETE CBC W/AUTO DIFF [...] OF BLOOD/URIC ACID Reviewed 07/27/2010 12:00 AM COMPREHEN METABOLIC PANEL [...] Diagnosis melanoma in situ Treatment [facility] - [facility] Tx Date 05/02/13 Cancer Stage Stage 0 [...] NEGATIVE YEAST NEGATIVE CULT SET UP? NO History Of Immunizations Name Date Admin Mfg Name Mfg Code Trade Name Lot# Route Inj Vis Given Vis Pub CVX Influenza 01/09/2008 Not Entered NE Not Entered Not Entered Not Entered 03/28/2019 03/28/2019 999 Td 10/07/1999 sanofi pasteur PMC DECAVAC Intramuscular Not E ntered 03/28/2019 03/28/2019 999 Influenza 01/26/2010 sanofi pasteur PMC Fluzone > 12 Years [id number] In tramuscular Left Deltoid 01/26/2010 11/05/2008 999 [...] unspecified 05/10/2013 Diabetes Mellitus, Type II 12/19/2013 Lumbar back pain 12/19/2013 Cardiomegaly Jan 26 2010 9:01AM Hypertension, [...] Lower Limb 05/06/2014 Actinic keratosis 05/06/2014 Seborrheic keratoses, inflamed 05/06/2014 Seborrheic keratoses 05/06/2014 Benign neoplasm of skin of back 05/06/2014 Benign Neoplasm Of Scalp 05/06/2014 Lentigines 05/06/2014 Scar 05/06/2014 Lipoma 05/14/2014 Actinic keratosis 12/11/2014 Lentigo 12/13/2014 Arthritis unspecified Jul 27 2010 [...] Date Medicare Part B Medicare Of [place] [id number] N/A [employer] Insurance LEYIO [id number] Sunday, 2017 BCBS Bcbs [facility] [id number] 2012 [employer] [place] [id number] N/A Medicare Part B Medicare Of [place] [id number] N/A Med[employer] Medico [id number] N/A Medicare Part A Medicare Part A [id number] Monday, 2011 Medico Insurance [employer] Insurance Company [id number] N/A Medicare Part A Medicare - Lab/Xray [id number] Monday, September 26, 2011 Aetna Medicare Supplement Aetna Medicare Supplement [id number] N/A Medicare RHC Medicare RHC [id number] N/A Medicare [facility] Medicare C [id number] Steel September 26, 2011 History of Encounters Visit Date Visit Type Provider 03/27/2018 Office visit Ray Guerra MD 03/23/2018 Office visit Eloisa Hamlin ADVERTISING OPERATIONS COORDINATOR 08/30/2017 Office visit Ray Guerra MD 07/19/2017 Surgery Ray Guerra MD 07/13/2017 Office visit Ray Guerra MD 06/22/2017 Procedures Ray Guerra MD 06/01/2017 Office visit Ray Guerra MD 03/31/2017 Office visit Eloisa Hamlin ADVERTISING OPERATIONS COORDINATOR 03/13/2017 Office visit Garland Rascon NP 09/06/2016 [facility] Faraz De Los Santos MD 03/26/2016 Office visit Eloisa Hamlin ADVERTISING OPERATIONS COORDINATOR 01/06/2015 Nurse visit Eloisa Hamlin ADVERTISING OPERATIONS COORDINATOR 12/30/2014 Office visit Eloisa Hamlin ADVERTISING OPERATIONS COORDINATOR 12/25/2014 Procedures Francisco Bouman DO 12/11/2014 Procedures Francisco Bouman DO 07/29/2014 Office visit Farida GILLESPIE RN 05/28/2014 Procedures Francisco Bouman DO 05/14/2014 Office visit Francisco Bouman DO 05/06/2014 Office visit Jon Alvarez 05/02/2014 Office visit Eloisa Hamlin ADVERTISING OPERATIONS COORDINATOR 01/31/2014 Office visit Jon Alvarez 12/19/2013 Office visit Eloisa Hamlin ADVERTISING OPERATIONS COORDINATOR 11/01/2013 Office visit Jon Alvarez 08/24/2013 Procedures Francisco Bouman DO 08/10/2013 Procedures Francisco Bouman DO 05/18/2013 Procedures Francisco Bouman DO 05/02/2013 Procedures Francsico Bouman DO 04/23/2013 Office visit Eloisa Hamlin ADVERTISING OPERATIONS COORDINATOR 10/28/2011 Office visit Eloisa Hamlin ADVERTISING OPERATIONS COORDINATOR 04/20/2011 Office visit Eloisa Hamlin ADVERTISING OPERATIONS COORDINATOR 02/04/2011 Office visit Dashawn Drew MD 12/23/2010 Office visit Dashawn Drew MD 11/19/2010 Office visit Dashawn Drew MD 11/12/2010 Office visit Dashawn Drew MD 10/22/2010 Office visit Dashawn Drew MD 10/21/2010 Hospital Faraz De Los Santos MD 09/21/2010 [facility] Faraz De Los Santos MD 07/27/2010 [...]
--- OUTSIDE RECORDS SUMMARY | 2019-10-10 12:07 | XMS REPORT ---
Author Author Shahbaz Hamlin Organization [facility] Address [address] [place] [id number] Care Team Providers Care Chief Executive Or Managing Director Name Role Phone Eloisa Hamlin PCP Tomy Rosado PreferredProvider Allergies and Adverse Reactions Name Reaction Notes NO KNOWN DRUG ALLERGIES Plan of Treatment Planned Activity Comments Planned Date Planned Time Plan/Goal BASIC METABOLIC PANEL 03/30/2016 12:00 AM URIC ACID. 03/30/2016 12:00 AM URIC ACID. 03/30/2016 12:00 AM CBC With Auto Differential 03/23/2018 12:00 AM CMP (comprehensive metabolic panel) 03/23/2018 12:00 AM .Lipid Panel 03/23/2018 12:00 AM Hemoglobin A1C 03/23/2018 12:00 AM URIC ACID. 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 Tobacco Never [...] 12:00 AM ALBUMIN URINE MICROALBUMIN QUANTIATIVE R deyanirawelinda 11/19/2010 12:00 AM DRAIN/INJ JOINT/BURSA W/O US [...] 07/13/2017 12:00 AM URINALYSIS AUTO W/SCOPE Reviewed 04/23/2013 [...] Diagnosis melanoma in situ Treatment Excision - [facility] Tx Date 05/02/13 Cancer Stage Stage 0 [...] sanofi pasteur PMC Fluzone > 12 Years [id number] In tramuscular Left Deltoid 01/26/2010 11/05/2008 999 [...] 8:16AM Mixed hyperlipidemia Mar 23 2018 8:16AM Payers Insurance Name Company Name Plan Name Plan Number Policy Number Jose G cy Group Number Start Date Medicare RH Medicare RH [id number] 2011 Aetna Medicare Supplement Aetna Medicare Supplement [id number] N/A Medicare RH Medicare RHC [id number] N/A BCBS [facility] [id number] 2012 [employer] [place] [id number] N/A Medicare Part B Medicare Of [place] [id number] N/A Medico Medico [id number] N/A Medicare Part A Medicare Part A [id number] Monday, 2011 Medico Insurance Company Medico Insurance Company [id number] N/A Medicare Part A Medicare - Lab/Xray [id number] Monday, September 26, 2011 History of Encounters Visit Date Visit Type Provider 03/23/2018 Office visit Eloisa Hamlin BASE PLY HAND 08/30/2017 Office visit Ray Guerra MD 07/19/2017 Surgery Ray Guerra MD 07/13/2017 Office visit Ray Guerra MD 06/22/2017 Procedures Ray Guerra MD 06/01/2017 Office visit Ray Guerra MD 03/31/2017 Office visit Eloisa Hamlin APRN 03/13/2017 Office visit Garland Rascon NP 09/06/2016 [facility] Faraz De Los Santos MD 03/26/2016 Office visit Eloisa Hamlin APRN 01/06/2015 Nurse visit Eloisa Hamlin BASE PLY HAND 12/30/2014 Office visit Eloisa Hamlin BASE PLY HAND 12/25/2014 Procedures Francisco Medina DO 12/11/2014 Procedures Francisco Medina DO 07/29/2014 Office visit Farida GILLEPSIE RN 05/28/2014 Procedures Francisco Medina DO 05/14/2014 Office visit Francisco Medina DO 05/06/2014 Office visit Jon Alvarez 05/02/2014 Office visit Eloisa Hamlin APRN 01/31/2014 Office visit Jon Alvarez 12/19/2013 Office visit Eloisa Hamlin BASE PLY HAND 11/01/2013 Office visit Jon Alvarez 08/24/2013 Procedures Francisco Bouman DO 08/10/2013 Procedures Francisco Bouman DO 05/18/2013 Procedures Francisco Bouman DO 05/02/2013 Procedures Francisco Bouman DO 04/23/2013 Office visit Eloisa Hamlin BASE PLY HAND 10/28/2011 Office visit Eloisa Hamlin BASE PLY HAND 04/20/2011 Office visit Eloisa Hamlin BASE PLY HAND 02/04/2011 Office visit Dashawn Drew MD 12/23/2010 Office visit Dashawn Drew MD 11/19/2010 Office visit Dashawn Drew MD 11/12/2010 Office visit Dashawn Drew MD 10/22/2010 Office visit Dashawn Drew MD 10/21/2010 Hospital Faraz De Los Santos MD 09/21/2010 [facility] Faraz De Los Santos [...]
--- OUTSIDE RECORDS SUMMARY | 2019-10-10 12:07 | XMS REPORT ---
Author Author Shahbaz Hamlin Organization [facility] Address [address] [place] [id number] Care Team Providers Care Kiln Packer Name Role Phone Eloisa Hamlin PCP Tomy [...] Comments Alcohol Use - Rare Exercises regularly [employer] service College graduate, 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 Tobacco Never [...] Diagnosis melanoma in situ Treatment Excision - [facility] Tx Date 05/02/13 Cancer Stage [...] sanofi pasteur PMC Fluzone > 12 Years [id number] In tramuscular Left Deltoid 01/26/2010 11/05/2008 999 [...] G cy Group Number Start Date Medicare RHC Medicare [facility] [id number] Steel 2011 [employer] [id number] Sunday, 2017 BCBS Bcbs [facility] [id number] 2012 [employer] [place] [id number] N/A Medicare Part B Medicare Of [place] [id number] N/A Medico Medico [id number] N/A Medicare Part A Medicare Part A [id number] Monday, 2011 Medico Insurance [employer] Medico Insurance Company [id number] N/A Medicare Part A Medicare - Lab/Xray [id number] Monday, September 26, 2011 Aetna Medicare Supplement Aetna Medicare Supplement [id number] N/A Medicare C Medicare [place] [id number] N/A History of Encounters Visit Date Visit Type Provider 03/23/2018 Office visit Eloisa Hamlin APRN 08/30/2017 Office visit Ray Guerra MD 07/19/2017 Surgery Ray Guerra MD 07/13/2017 Office visit Ray Guerra MD 06/22/2017 Procedures Ray Guerra MD 06/01/2017 Office visit Ray Guerra MD 03/31/2017 Office visit Eloisa Hamlin INSPECTION ENGINEER 03/13/2017 Office visit Garland Rascon NP 09/06/2016 [facility] Faraz De Los Santos MD 03/26/2016 Office visit Eloisa Hamlin INSPECTION ENGINEER 01/06/2015 Nurse visit Eloisa Hamlin INSPECTION ENGINEER 12/30/2014 Office visit Eloisa Hamlin INSPECTION ENGINEER 12/25/2014 Procedures Francisco Medina DO 12/11/2014 Procedures Francisco Medina DO 07/29/2014 Office visit Farida GILLESPIE RN 05/28/2014 Procedures Francisco Medina DO 05/14/2014 Office visit Francisco Medina DO 05/06/2014 Office visit Jon Alvarez 05/02/2014 Office visit Eloisa Hamlin INSPECTION ENGINEER 01/31/2014 Office visit Jon Alvarez 12/19/2013 Office visit Eloisa Hamlin INSPECTION ENGINEER 11/01/2013 Office visit Jon Alvarez 08/24/2013 Procedures Francisco Bouman DO 08/10/2013 Procedures Francisco Bouman DO 05/18/2013 Procedures Francisco Bouman DO 05/02/2013 Procedures Francisco Bouman DO 04/23/2013 Office visit Eloisa Hamlin INSPECTION ENGINEER 10/28/2011 Office visit Eloisa Hamlin INSPECTION ENGINEER 04/20/2011 Office visit Eloisa Hamlin INSPECTION ENGINEER 02/04/2011 Office visit Dashawn Drew MD [...] Laboratory Dusty Ford MD 12/18/2008 Office visit aLna MCCORMICK
--- OUTSIDE RECORDS SUMMARY | 2019-10-10 12:08 | XMS REPORT ---
Author Author Shahbaz Guerra Organization [facility] Address [address] [place] [id number] Care Team Providers Care Custom Home Installer Name Role Phone Ray Guerra PCP Tomy [...] by oral route once daily at bedtime allopurinol 100 mg oral tablet 03/31/2017 TAKE 1 TAB LET BY MOUTH EVERY DAY atorvastatin 20 mg oral tablet 03/31/2017 T BROOKS 1 TABLET BY MOUTH EVERY NIGHT AT BEDTIME lisinopril 10 mg oral tablet 03/31/2017 TAKE 1 TABLE T BY MOUTH EVERY DAY tamsulosin 0.4 mg oral capsule,extended release 24hr 06/22/2017 take 1 capsule (0.4 mg) by oral route once daily 1/2 hour following the same meal each day for 30 days Name Start Date Expiration Date SIG [...] Limb Active Actinic Keratosis Active 05/06/2014 Seborrheic keratoses, inflamed Active 5 Seborrheic keratoses Active 05/06/2014 Benign neoplasm of skin of back Active 05/06/19 15 Benign Neoplasm Of Scalp Active 05/06/2014 Lentigines Active 05/06/2014 Scar Active 05/06/2014 Lipoma Active 05/14/2014 Actinic Keratosis Active 12/11/2014 Lentigo Active 12/13/2014 Vital Signs Date Time BP-Sys(mm[Hg] BP-Sowmya(mm[Hg]) HR(bpm) RR(rpm) Temp WT HT HC BMI BSA BMI Percentile O2 Sat(%) 08/30/2017 11:15:00 AM 122 mmHg 82 mmHg [...] rpm 98 F 264 lbs 71 in 36.82 k g/m2 2.4492 m 05/02/2013 10:22:00 AM 130 mmHg [...] Comments Alcohol Use - Rare Exercises regularly [employer] service College graduate, 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 Tobacco Never [...] sanofi pasteur PMC Fluzone > 12 Years [id number] In tramuscular Left Deltoid 01/26/2010 11/05/2008 999 [...] Lower Limb 05/06/2014 Actinic Keratosis 05/06/2014 Seborrheic keratoses, inflamed 05/06/2014 Seborrheic keratoses 05/06/2014 Benign neoplasm of skin of back 05/06/2014 Benign Neoplasm Of Scalp 05/06/2014 Lentigines 05/06/2014 Scar 05/06/2014 Lipoma 05/14/2014 Actinic Keratosis 12/11/2014 Lentigo 12/13/2014 Arthritis unspecified Jul 27 [...] keratosis b 2014 9:24AM Seborrheic keratoses, inflamed May 06 2014 9:24AM Seborrheic keratoses Feb 2014 9:24AM Benign neoplasm of skin of back b 2014 9:24AM Benign neoplasm of scalp b 2014 9:24AM Lentigines May 06 2014 9:24AM [...] 2017 9:05AM Nephrolithiasis Aug 30 2017 11:18AM Payers Insurance Name Company Name Plan Name Plan Number Policy Number Jose G cy Group Number Start Date Medicare Part B Medicare [facility] [id number] N/A Aetna Medicare Supplement Aetna Medicare Supplement [id number] N/A Medicare [facility] Medicare [facility] [id number] N/A [facility] [id number] 2012 [facility] [place] [id number] N/A Medico Medico [id number] N/A Medicare Part A Medicare Part A [id number] Monday, 2011 Medico Insurance Company Medico Insurance Company [id number] N/A Medicare Part A Medicare - Lab/Xray [id number] Monday, September 26, 2011 History of Encounters Visit Date Visit Type Provider 08/30/2017 Office visit Ray Guerra MD 07/19/2017 Surgery Ray Guerra MD 07/13/2017 Office visit Ray Guerra MD 06/22/2017 Procedures Ray Guerra MD 06/01/2017 Office visit Ray Guerra MD 03/31/2017 Office visit Eloisa Hamlin FARM TRACTOR MECHANIC 03/13/2017 Office visit Garland Rascon NP 09/06/2016 [facility] Faraz De Los Santos MD 03/26/2016 Office visit Eloisa Hamlin FARM TRACTOR MECHANIC 01/06/2015 Nurse visit Eloisa Hamlin FARM TRACTOR MECHANIC 12/30/2014 Office visit Eloisa Hamlin FARM TRACTOR MECHANIC 12/25/2014 Procedures Francisco Bouman DO 12/11/2014 Procedures Francisco Bouman DO 07/29/2014 Office visit Farida GILLESPIE RN 05/28/2014 Procedures Francisco Bouman DO 05/14/2014 Office visit Francisco Bouman DO 05/06/2014 Office visit Jon Alvarez 05/02/2014 Office visit Eloisa Hamlin FARM TRACTOR MECHANIC 01/31/2014 Office visit Jon Alvarez 12/19/2013 Office visit Eloisa Hamlin FARM TRACTOR MECHANIC 11/01/2013 Office visit Jon Alvarez 08/24/2013 Procedures Francisco Bouman DO 08/10/2013 Procedures Francisco Bouman DO 05/18/2013 Procedures Francisco Bouman DO 05/02/2013 Procedures Francisco Bouman DO 04/23/2013 Office visit Eloisa Hamlin FARM TRACTOR MECHANIC 10/28/2011 Office visit Eloisa Hamlin FARM TRACTOR MECHANIC 04/20/2011 Office visit Eloisa Hamlin FARM TRACTOR MECHANIC 02/04/2011 Office visit Dashawn Drew MD 12/23/2010 Office visit Dashawn Drew MD 11/19/2010 Office visit Dashawn Drew MD 11/12/2010 Office visit Dashawn Drew MD 10/22/2010 Office visit Dashawn Drew MD 10/21/2010 [facility] Faraz De Los Santos MD 09/21/2010 [facility] [...]
--- OUTSIDE RECORDS SUMMARY | 2019-10-10 12:08 | XMS REPORT ---
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 Tobacco Never [...] sanofi pasteur PMC Fluzone > 12 Years [id number] In tramuscular Left Deltoid 01/26/2010 11/05/2008 999 [...] Number Start Date Medicare Part B Medicare [facility] [id number] N/A Aetna Medicare Supplement Aetna Medicare Supplement [id number] N/A Medicare [facility] Medicare [facility] [id number] N/A BCBS [facility] [id number] 2012 [facility] [place] Donna [employer] [place] [id number] N/A Medico Medico [id number] N/A Medicare Part A Medicare Part A [id number] Monday, 2011 Medico Insurance Company Medico Insurance Company [id number] N/A Medicare Part A Medicare - Lab/Xray [id number] Monday, September 26, 2011 History of Encounters Visit Date Visit Type Provider 08/30/2017 Office visit Ray Guerra MD 07/19/2017 Surgery Ray Guerra MD 07/13/2017 Office visit Ray Guerra MD 06/22/2017 Procedures Ray Guerra MD 06/01/2017 Office visit Ray Guerra MD 03/31/2017 Office visit Eloisa Hamlin SHANK TURNER 03/13/2017 Office visit Garland Rascon NP 09/06/2016 [facility] Faraz De Los Santos MD 03/26/2016 Office visit Eloisa Hamlin SHANK TURNER 01/06/2015 Nurse visit Eloisa Hamlin SHANK TURNER 12/30/2014 Office visit Eloisa Hamlin SHANK TURNER 12/25/2014 Procedures Francisco Bouman DO 12/11/2014 Procedures Francisco Bouman DO 07/29/2014 Office visit Farida GILLESPIE RN 05/28/2014 Procedures Francisco Bouman DO 05/14/2014 Office visit Francisco Bouman DO 05/06/2014 Office visit Jon Alvarez 05/02/2014 Office visit Eloisa Hamlin SHANK TURNER 01/31/2014 Office visit Jon Alvarez 12/19/2013 Office visit Eloisa Hamlin SHANK TURNER 11/01/2013 Office visit Jon Alvarez 08/24/2013 Procedures Francisco Bouman DO 08/10/2013 Procedures Francisco Bouman DO 05/18/2013 Procedures Francisco Bouman DO 05/02/2013 Procedures Francisco Bouman DO 04/23/2013 Office visit Eloisa Hamlin SHANK TURNER 10/28/2011 Office visit Eloisa Hamlin SHANK TURNER 04/20/2011 Office visit Eloisa Hamlin SHANK TURNER 02/04/2011 Office visit Dashawn Drew MD 12/23/2010 Office visit Dashawn Drew MD 11/19/2010 Office visit Dashawn Drew MD 11/12/2010 Office visit Dashawn rDew MD 10/22/2010 Office visit Dashawn Drew MD 10/21/2010 [facility] Faraz De Los Santos MD 09/21/2010 [facility] Farza De Los Santos MD 07/27/2010 Office visit [...]
--- OUTSIDE RECORDS SUMMARY | 2019-10-10 12:09 | XMS REPORT ---
Author Author Shahbaz Guerra Organization [facility] Address [address] [place] [id number] Care Team Providers Care Bell Person Name Role Phone Ray Guerra PCP Tomy [...] BY ORAL ROUTE ONCE DAILY AT BEDTIME Lipitor 20 mg oral tablet 01/02/2015 03/26/2016 [...] HC BMI BSA BMI Percentile O2 Sat(%) 06/01/2017 3:07:00 PM 128 mmHg 82 mmHg [...] rpm 97.8 F 252.375 lbs 71 in 35.20 kg/m2 2.39 m2 97 % 07/27/2010 10:12:00 AM 150 mmHg 90 mmHg 61 bpm 18 rpm 98 F 259 lbs 70 in 37.1622 kg/m 2.4088 m 96 % 01/26/2010 1:54:00 PM 120 mmHg 80 mmHg 58 bpm 18 rpm 97.6 F 272.125 lbs 70 in 39.05 kg/m2 2.47 m2 96 % 10/28/2009 1:42:00 PM 110 mmHg 78 mmHg 61 bpm 18 rpm 97.3 F 262.5 lbs 70 in 37.6644 kg/m 2.425 m 95 % 10/24/2009 1:24:00 PM 120 mmHg 88 mmHg 96 bpm 20 rpm 98 F 258.5 lbs 70 in 37.09 kg/m2 2.41 m2 95 % 10/03/2009 2:24:00 PM 120 mmHg 90 mmHg 90 bpm 20 rpm 98.6 F 255.5 lbs 70 in 36.6601 kg/m 2.3925 m 96 % 09/05/2009 8:34:00 AM 110 mmHg 76 mmHg 68 bpm 18 rpm 267 lbs 70 in 38.31 kg/m2 2.45 m2 Social History Name Description Comments Alcohol [...] Reviewed Results Summary Date and Description Results 01/26/2010 9:15 AM URIC ACID 7.7 mg/dLTRIGLYCER [...] 82 eGFR >60 mL/min/1.73 m2eGFR AA* >60 07/25/2010 11:40 AM TRIGLYCERIDES 147.0 mg/dLCHO LESTEROL [...] 91 eGFR >60 mL/min/1.73 m2eGFR AA* >60 04/24/2013 11:10 AM GLUCOSE 119.0 mg/dLSODIUM 13 [...] A1C 6.20 %Est Avg Glucose 131.2 mg/dL 12/30/2014 9:18 AM WBC 7.6 RBC 4.63 [...] sanofi pasteur PMC Fluzone > 12 Years [id number] In tramuscular Left Deltoid 01/26/2010 11/05/2008 999 Tdap 01/06/2015 GlaxoSmWheretogetine SKB BOOSTRIX [id number] Intramuscula r Right Deltoid [...] keratosis Feb 2014 9:24AM Seborrheic keratoses, inflamed May 06 2014 9:24AM Seborrheic keratoses Feb 2014 9:24AM Benign neoplasm of skin of back b 2014 9:24AM Benign neoplasm of scalp b 2014 9:24AM Lentigines May 06 2014 9:24AM Scar b 2014 9:24AM Lipoma [...] than 10 ng/ml Jun 01 2017 3:14PM Payers Insurance Name Company Name Plan Name Plan Number Policy Number Jose G cy Group Number Start Date Medicare RHC Medicare RHC [id number] N/A Aetna Medicare Supplement Aetna Medicare Supplement [id number] N/A [id number] 2012 Amber Thompson [employer] Amber Thompson [facility] In c [id number] N/A Medicare Part B Medicare Of [place] [id number] N/A Medico Medico [id number] N/A Medicare Part A Medicare Part A [id number] Monday, 2011 [employer]ico [employer] Company [employer] [id number] N/A Medicare Part A Medicare - Lab/Xray [id number] Monday, September 26, 2011 History of Encounters Visit Date Visit Type Provider 06/01/2017 Office visit Ray Guerra MD 03/31/2017 Office visit Eloisa Hamlin COMPENSATION INTERN 03/13/2017 Office visit Garland Rascon NP 09/06/2016 [facility] Zak De Los Santos MD 03/26/2016 Office visit Eloisa Hamlin COMPENSATION INTERN 01/06/2015 Nurse visit Eloisa Hamlin COMPENSATION INTERN 12/30/2014 Office visit Eloisa Hamlin COMPENSATION INTERN 12/25/2014 Procedures Francisco Bouman DO 12/11/2014 Procedures Francisco Bouman DO 07/29/2014 Office visit Farida GILLESPIE RN 05/28/2014 Procedures Francisco Bouman DO 05/14/2014 Office visit Francisco Medina DO 05/06/2014 Office visit Jno Alvarez 05/02/2014 Office visit Eloisa Hamlin COMPENSATION INTERN 01/31/2014 Office visit Jon Alvarez 12/19/2013 Office visit Eloisa Hamlin COMPENSATION INTERN 11/01/2013 Office visit Jon Alvarez 08/24/2013 Procedures Francisco Bouman DO 08/10/2013 Procedures Francisco Bouman DO 05/18/2013 Procedures Francisco Bouman DO 05/02/2013 Procedures Francisco Bouman DO 04/23/2013 Office visit Eloisa Hamlin APRN 10/28/2011 Office visit Eloisa Hamlin APRN 04/20/2011 Office visit Eloisa Hamlin APRN 02/04/2011 Office visit Dashawn Drew MD 12/23/2010 Office visit Dashawn Drew MD 11/19/2010 Office visit Dashawn Drew MD 11/12/2010 Office visit Dashawn Drew MD 10/22/2010 Office visit Dashawn Drew MD 10/21/2010 Hospital Faraz De Los Santos MD 09/21/2010 [facility] Faraz De Los Santos MD [...]
--- OUTSIDE RECORDS SUMMARY | 2019-10-10 12:09 | XMS REPORT ---
Author Author Shahbaz Hamlin Organization [facility] Address [address] [place] [id number] Care Team Providers Care Integrated Logistics Operations Manager Name Role Phone Eloisa Hamlin PCP Unavailable Tomy Rosado PreferredProvider Unavailable Allergies and Adverse Reactions Name Reaction Notes [...] by oral route once daily at bedtime atorvastatin 20 mg oral tablet 03/05/2015 T BROOKS 1 TABLET BY MOUTH EVERY NIGHT AT BEDTIME atorvastatin 20 mg oral tablet 03/26/2016 T BROOKS 1 TABLET BY MOUTH EVERY NIGHT AT BEDTIME lisinopril 10 mg oral tablet 03/26/2016 TAKE 1 TABLE T BY MOUTH EVERY DAY allopurinol 100 mg oral tablet 03/30/2016 03/25/2017 t brooks 1 tablet (100 mg) by oral route once daily for 90 days Name Start Date Expiration Date SIG Comments Shingles Vaccine 10/03/2009 10/04/2009 may administer shingles vaccine azithromycin 500 mg oral tablet 12/23/2010 12/30/2010 take 1 tablet (500 mg) by oral route once daily for 7 days Bactrim DS 800-160 mg oral tablet 04/20/2011 04/27/2011 take 1 tablet by oral route every 12 hours for 7 days lisinopril 10 mg oral tablet 10/28/2011 05/25/2012 kg e 1 tablet (10 mg) by oral route once daily for 30 days triamcinolone acetonide 0.1 % topical cream [...] oral route once daily for 4 days Discontinued Name Start Date Discontinued Date [...] Of Lower Extremities With Pain Active Venous Insufficiency Active Gout Active Malignant melanoma of skin; [...] HC BMI BSA BMI Percentile O2 Sat(%) 03/26/2016 8:16:00 AM 132 mmHg 72 mmHg [...] F 253 lbs 71 in 35.286 kg/m 2.40 m2 97 % 12/19/2013 9:47:00 AM 130 mmHg 70 mmHg 64 bpm 18 rpm 97.4 F 253.375 lbs 71 in 35.34 kg/m2 2.3994 m 98 % 08/24/2013 10:04:00 AM 122 mmHg 78 mmHg 60 bpm 16 rpm 97.5 F 265 lbs 71 in 36.9596 kg/m 2.45 m2 08/10/2013 12:58:00 PM 132 mmHg 75 mmHg 65 bpm 18 rpm 98 F 260.312 lbs 71 in 36.31 kg/m2 2.4321 m 05/18/2013 11:02:00 AM 16 rpm 98 F 264 lbs 71 in 36.8201 kg/m 2.45 m2 05/02/2013 10:22:00 AM 130 mmHg 80 mmHg 80 bpm 16 rpm 98.3 F 269 lbs 71 in 37.52 kg/m2 2.4723 m 04/23/2013 2:13:00 PM 130 mmHg 66 mmHg 69 bpm 18 rpm 97.8 F 270.375 lbs 71 in 37.7093 kg/m 2.48 m2 97 % 10/28/2011 3:18:00 PM 148 mmHg 72 mmHg 68 bpm 18 rpm 98.9 F 276.125 lbs 71 i n 38.51 kg/m2 2.5048 m 04/20/2011 4:19:00 PM 136 mmHg 74 mmHg 68 bpm 18 rpm 97.5 F 257.375 lbs 71 in 35.8962 kg/m 2.42 m2 02/04/2011 3:15:00 PM 128 mmHg 90 mmHg [...] F 252.375 lbs 71 in 35.20 kg/m2 2.3947 m 97 % 07/27/2010 10:12:00 AM [...] Reviewed 03/26/2016 12:00 AM COMPREHEN METABOLIC PANEL Returned 03/26/2016 12:00 AM LIPID PANEL Returned 03/26/2016 12:00 AM GLYCOSYLATED HEMOGLOBIN TEST Returned 03/26/2016 12:00 AM ASSAY OF PSA TOTAL Returned 03/26/2016 12:00 AM ASSAY OF BLOOD/URIC ACID Returned 03/26/2016 12:00 AM ASSAY OF URINE/URIC ACID Returned 03/26/2016 12:00 AM ALBUMIN URINE MICROALBUMIN QUANTIATIVE R eturned 11/19/2010 12:00 AM DRAIN/INJ JOINT/BURSA W/O US Reviewed 04/23/2013 12:00 AM COMPLETE CBC W/AUTO [...] X-RAY EXAM OF SHOULDER Reviewed Results Summary Data and Description Results 01/10/2007 12:00 AM Digital [...] A1C 5.60 %Est Avg Glucose 114.0 mg/dL History Of Immunizations Name Date Admin Mfg Name Mfg Code Trade Name Lot# Route Inj Vis Given Vis Pub CVX Influenza 01/09/2008 Not Entered NE Not Entered Not Entered Not Entered 03/28/2019 03/28/2019 999 Td 10/07/1999 sanofi pasteur PMC DECAVAC Intramuscular Not E ntered 03/28/2019 03/28/2019 999 Influenza 01/26/2010 sanofi pasteur PMC Fluzone > 12 Years [id number] In tramuscular Left Deltoid 01/26/2010 11/05/2008 999 Tdap 01/06/2015 [employer] SKB BOOSTRIX [id number] Intramuscula r Right Deltoid 01/06/2015 08/03/2012 115 History of Past Illness Name Date of Onset Comments lumbar back pain degenerative disk disease Hypertension, Benign Essential Venous Insufficiency Benign Hypertrophy of Prostate (BPH) Varicose Veins [...] 06 2014 9:24AM Benign neoplasm of scalp b [...] uric acid level Mar 30 2016 12:04PM Payers Insurance Name Company Name Plan Name Plan Number Policy Number Jose G cy Group Number Start Date Medicare Part A Medicare RHC [id number] N/A Aetna Medicare Supplement Aetna Medicare Supplement [id number] N/A BCBS Bcbs [facility] [id number] 2012 Clarkfarida Thompson [employer] In [id number] N/A Medicare Part B Medicare Of [place] [id number] N/A Medico Medico [id number] N/A Medicare Part A Medicare Part A [id number] Monday, September 26, 2011 [employer] Company [employer] Company [id number] N/A Medicare Part A Medicare - Lab/Xray [id number] Monday, September 26, 2011 History of Encounters Visit Date Visit Type Provider 03/26/2016 Office visit Eloisa Hamlin APRN 01/06/2015 Nurse visit Eloisa Hamlin APRN 12/30/2014 Office visit Eloisa Hamlin JUNIOR ADMINISTRATIVE ASSISTANT 12/25/2014 Procedures Francisco Medina DO 12/11/2014 Procedures Francisco Medina DO 07/29/2014 Office visit Farida GILLESPIE RN 05/28/2014 Procedures Francisco Medina DO 05/14/2014 Office visit Francisco Medina DO 05/06/2014 Office visit Jon Alvarez 05/02/2014 Office visit Eloisa Hamlin JUNIOR ADMINISTRATIVE ASSISTANT 01/31/2014 Office visit Jon Alvarez 12/19/2013 Office visit Eloisa Hamlin APRN 11/01/2013 Office visit Jon Alvarez 08/24/2013 Procedures Francisco Medina DO 08/10/2013 Procedures Francisco Medina DO 05/18/2013 Procedures Francisco Medina DO 05/02/2013 Procedures Francisco Medina DO 04/23/2013 Office visit Eloisa Hamlin APRN 10/28/2011 Office visit Eloisa Hamlin APRN 04/20/2011 Office visit Eloisa Hamlin JUNIOR ADMINISTRATIVE ASSISTANT 02/04/2011 Office visit Dashawn Drew MD 12/23/2010 Office visit Dashawn Drew MD 11/19/2010 Office visit Dashawn Drew MD 11/12/2010 Office visit Dashawn Drew MD 10/22/2010 Office visit Dashawn Drew MD 10/21/2010 Hospital Faraz De Los Santos MD 09/21/2010 [facility] Faraz De Los Santos MD 07/27/2010 [...]
--- OUTSIDE RECORDS SUMMARY | 2019-10-10 12:10 | XMS REPORT ---
Author Author Shahbaz Rosado Organization [facility] ou Address [address] [place] [id number] Care Team Providers Care Tangled Yarn Spool Straightener Name Role Phone Tomy Rosado PCP Unavailable Allergies and Adverse Reactions Name Reaction Notes NO KNOWN DRUG ALLERGIES Plan of Treatment Planned Activity Comments Planned Date Planned Time Plan/Goal METABOLIC PANEL TOTAL CA 06/29/2013 12:00 AM Medications Active Name Start Date Estimated Completion Date SIG Co mments aspirin oral tablet,delayed release (DR/EC) 81 mg take 1 tablet (81 mg) by oral route once daily allopurinol oral tablet 100 mg 12/19/2013 12/14/2014 t brooks 1 tablet (100 mg) by oral route once daily for 90 days lisinopril oral tablet 10 mg 12/19/2013 TAKE 1 TABLE T BY MOUTH EVERY DAY allopurinol oral tablet 100 mg 02/25/2014 TAKE 1 TAB LET BY MOUTH EVERY DAY amoxicillin oral capsule 500 mg 07/29/2014 08/08/2014 take 1 capsule (500 mg) by oral route 3 times per day for 10 days Medrol (Faisal) oral tablets,dose pack 4 mg 07/29/2014 take as directed Name Start Date Expiration Date SIG Comments Shingles Vaccine 10/03/2009 10/04/2009 may administer shingles vaccine Azithromycin Oral Tablet 500 mg 12/23/2010 12/30/2010 take 1 tablet (500 mg) by oral route once daily for 7 days Bactrim DS Oral Tablet 800-160 mg 04/20/2011 04/27/2011 take 1 tablet by oral route every 12 hours for 7 days lisinopril Oral Tablet 10 mg 10/28/2011 05/25/2012 kg e 1 tablet (10 mg) by oral route once daily for 30 days triamcinolone acetonide Topical Cream 0.1 % 10/28/20112011 apply a thin layer to the affected area(s) by topical route 2 times per day Zithromax Z-Faisal Oral tablet 250 mg 03/30/2012 04/04/2012 take 2 tablets (500 mg) by oral route once daily for 1 day then 1 tablet (250 mg) by oral route once daily for 4 days Discontinued Name Start Date Discontinued Date SIG Comments Benicar HCT Oral Tablet 40-25 mg 09/07/2009 10/03/2009 take 1 tablet by oral route once daily for 90 days Ibuprofen Oral Tablet 200 mg 10/28/2011 prn Aspirin Oral Tablet 325 mg 10/03/2009 05/02/2013 take 1 tablet by oral route daily Hydrocodone-Acetaminophen Oral Tablet 10-500 mg 10/28/19 12 03/29 to 1 q4h prn Doc-Q-Lace Oral Capsule 100 mg 10/28/2011 t brooks 1 capsule (100 mg) by oral route 2 times per day as needed Benicar Oral Tablet 40 mg 10/03/2009 10/24/2009 take 1 tablet (40 mg) by oral route once daily Atenolol-Chlorthalidone Oral Tablet 50-25 mg 10/24/200910/27 take 1 tablet by oral route once daily Medrol (Faisal) Oral tablets,dose pack 4 mg 03/30/2012 04/23/2013 take as directed Sunscreen SPF 30 05/06/2014 07/29/2014 apply q2h while outdoors, q1h if swimming or sweating Vaseline 05/06/2014 07/29/2014 apply to treated areas Problem List Description Status Onset Arthritis unspecified [...] 12/19/2013 Lumbar back pain Active 12/19/2013 Benign neoplasm of skin of lower limb Active Actinic Keratosis Active 05/06/2014 Seborrheic keratoses, inflamed Active 5 Seborrheic keratoses Active 05/06/2014 Benign neoplasm of skin of back Active 05/06/19 15 Benign neoplasm of scalp Active 05/06/2014 Lentigines Active 05/06/2014 Scar Active 05/06/2014 Lipoma Active 05/14/2014 Vital Signs Date Time BP-Sys(mm[Hg] BP-Sowmya(mm[Hg]) HR(bpm) RR(rpm) Temp WT HT HC BMI BSA BMI Percentile O2 Sat(%) 07/29/2014 9:01:00 AM 119 mmHg 71 mmHg [...] rpm 97.7 F 253 lbs 71 in 35.29 kg/m2 2.40 m2 97 % 12/19/2013 9:47:00 AM 130 mmHg 70 mmHg 64 bpm 18 rpm 97.4 F 253.375 lbs 71 in 35.3383 kg/m 2.3994 m 98 % 08/24/2013 10:04:00 AM 122 mmHg 78 mmHg 60 bpm 16 rpm 97.5 F 265 lbs 71 in 36.96 kg/m2 2.45 m2 08/10/2013 12:58:00 PM 132 mmHg 75 mmHg 65 bpm 18 rpm 98 F 260.312 lbs 71 in 36.3059 kg/m 2.4321 m 05/18/2013 11:02:00 AM 16 rpm 98 F 264 lbs 71 in 36.82 k g/m2 2.45 m2 05/02/2013 10:22:00 AM 130 mmHg 80 mmHg 80 bpm 16 rpm 98.3 F 269 lbs 71 in 37.5175 kg/m 2.4723 m 04/23/2013 2:13:00 PM 130 mmHg 66 mmHg 69 bpm 18 rpm 97.8 F 270.375 lbs 71 in 37.71 kg/m2 2.48 m2 97 % 10/28/2011 3:18:00 PM 148 mmHg 72 mmHg 68 bpm 18 rpm 98.9 F 276.125 lbs 71 i n 38.5112 kg/m 2.5048 m 04/20/2011 4:19:00 PM 136 mmHg 74 mmHg 68 bpm 18 rpm 97.5 F 257.375 lbs 71 in 35.90 kg/m2 2.42 m2 02/04/2011 3:15:00 PM 128 mmHg [...] of Procedures Date Ordered Description Order Status 11/19/2010 12:00 AM DRAIN/INJ JOINT/BURSA W/O US Reviewed 04/23/2013 12:00 AM COMPLETE CBC W/AUTO DIFF WBC Returned 04/23/2013 12:00 AM COMPREHEN METABOLIC PANEL Returned 04/23/2013 12:00 AM LIPID PANEL Returned 04/23/2013 12:00 AM ASSAY OF BLOOD/URIC ACID Returned 08/10/2013 12:00 AM EXC TR-EXT B9+CHEO 2.1-3CM/< [...] AM COMPLETE CBC W/AUTO DIFF WBC Returned 12/19/2013 12:00 AM COMPREHEN METABOLIC PANEL Returned 12/19/2013 12:00 AM LIPID PANEL Returned 12/19/2013 12:00 AM GLYCOSYLATED HEMOGLOBIN TEST Returned 12/19/2013 12:00 AM ASSAY OF BLOOD/URIC ACID Returned 07/27/2010 12:00 AM COMPREHEN METABOLIC PANEL Reviewed 07/27/2010 12:00 AM LIPID PANEL Reviewed 07/27/2010 12:00 AM GLYCOSYLATED HEMOGLOBIN TEST Reviewed 07/27/2010 12:00 AM ASSAY OF BLOOD/URIC ACID Reviewed 10/22/2010 12:00 AM X-RAY EXAM OF [...] mg/dLTRIGLYCER IDES 155.0 mg/dLCHOLESTEROL 166.0 mg/dLHDL 28.0 mg/dLLDL (CALC) 107.0 mg/dLGLUCOSE 132.0 mg/dLSODIUM 133.0 mmol/LPOTASSIUM 3.90 mmol/LCHLORIDE 98.0 mmol/LCO2 27.0 mmol/LBUN 23.0 mg/dLCREATININE 1.10 mg/dLSGOT/AST 22.0 IU/LSGPT/ALT 29.0 IU/LALK PHOS 88.0 IU/LTOTAL PROTEIN 7.40 g/dLALBUMIN 4.10 g/dLTOTAL BILI 0.60 mg/dLCALCIUM 9.40 mg/dLeGFR >60 mL/min/1.73 m2 01/26/2010 1:18 PM Cholest Cry Stone Ql IR 166. 0 %LDLc SerPl-mCnc 107.0 mg/dLGlucose SerPl-mCnc 132.0 mg/dL 07/25/2010 12:00 AM Cholest Cry Stone Ql IR 161. 0 %LDLc SerPl-mCnc 107.0 mg/dLGlucose SerPl-mCnc 116.0 mg/dL 07/25/2010 11:40 AM TRIGLYCERIDES 147.0 mg/dLCHO LESTEROL 161.0 mg/dLHDL 25.0 mg/dLLDL (CALC) 107.0 mg/dLURIC ACID 7.4 mg/dLGLYCOHEMOGLOBIN A1C 6.60 %GLUCOSE 116.0 mg/dLSODIUM 137.0 mmol/LPOTASSIUM 3.50 mmol/LCHLORIDE 103.0 mmol/LCO2 24.0 mmol/LBUN 29.0 mg/dLCREATININE 1.0 mg/dLSGOT/AST 23.0 IU/LSGPT/ALT 27.0 IU/LALK PHOS 81.0 IU/LTOTAL PROTEIN 7.0 g/dLALBUMIN 4.0 g/dLTOTAL BILI 0.90 mg/dLCALCIUM 9.30 mg/dLeGFR >60 mL/min/1.73 m2 07/27/2010 10:15 AM PSA SerPl-mCnc 0.0 ng/mL [...] g/dLALBUMIN 4.0 g/dLTOTAL BILI 1.40 mg/dLCALCIUM 9.60 mg/dLeGFR >60 mL/min/1.73 m2URIC ACID 6.9 mg/dLTRIGLYCERIDES 100.0 mg/dLCHOLESTEROL 163.0 mg/dLHDL 33.0 mg/dLLDL (CALC) 110.0 mg/dL 04/24/2013 11:20 AM WBC 6.5 RBC 4.70 HGB 15.80 g /dLHCT 45.90 %MCV 98.0 fLMCH 33.60 pgMCHC 34.40 g/dLRDW CV 13.10 %MPV 10.60 fLPLT 203 %NEUT 61.50 %%LYMP 29.30 %%MONO 7.40 %%EOS 1.50 %%BASO 0.30 %#NEUT 3.99 #LYMP 1.90 #MONO 0.48 #EOS 0.10 #BASO 0.02 12/19/2013 11:36 AM WBC 4.2 RBC 4.90 HGB 16.40 g /dLHCT 46.30 %MCV 95.0 fLMCH 33.50 pgMCHC 35.40 g/dLRDW CV 12.80 %MPV 11.70 fLPLT 218 %NEUT 59.40 %%LYMP 28.60 %%MONO 9.20 %%EOS 1.90 %%BASO 0.90 %#NEUT 2.51 #LYMP 1.21 #MONO 0.39 #EOS 0.08 #BASO 0.04 GLUCOSE 113.0 mg/dLSODIUM 137.0 mmol/LPOTASSIUM 4.30 mmol/LCHLORIDE 104.0 mmol/LCO2 25.0 mmol/LBUN 13.0 mg/dLCREATININE 0.80 mg/dLSGOT/AST 49.0 IU/LSGPT/ALT 55.0 IU/LALK PHOS 83.0 IU/LTOTAL PROTEIN 7.40 g/dLALBUMIN 4.10 g/dLTOTAL BILI 1.20 mg/dLCALCIUM 9.50 mg/dLeGFR 60 URIC ACID 7.4 mg/dLTRIGLYCERIDES 126.0 mg/dLCHOLESTEROL 139.0 mg/dLHDL 25.0 mg/dLLDL (CALC) 89.0 mg/dLHGB A1C 6.20 % 05/06/2014 7:43 AM Site of melanoma R [...] Tx Date 05/02/13 Cancer Stage Stage 0 History Of Immunizations Name Date Admin Mfg Name Mfg Code Trade Name Lot# Route Inj Vis Given Vis Pub CVX Influenza 01/09/2008 Not Entered NE Not Entered Not Entered Not Entered 03/28/2019 03/28/2019 999 Td 10/07/1999 sanofi pasteur PMC DECAVAC Intramuscular Not E ntered 03/28/2019 03/28/2019 999 Influenza 01/26/2010 sanofi pasteur PMC Fluzone > 12 Years [id number] In tramuscular Left Deltoid 01/26/2010 11/05/2008 999 History of Past Illness Name Date of [...] Glucose Intolerance Jan 26 2010 2:03PM Benign neoplasm of skin of lower limb 05/06/2014 Actinic Keratosis 05/06/2014 Seborrheic keratoses, inflamed 05/06/2014 Seborrheic keratoses 05/06/2014 Benign neoplasm of skin of back 05/06/2014 Benign neoplasm of scalp 05/06/2014 Lentigines 05/06/2014 Scar 05/06/2014 Lipoma 05/14/2014 Arthritis unspecified Jul 27 2010 10:12AM Hypertension, [...] inflamed May 06 2014 9:24AM Seborrheic keratoses b 2014 9:24AM Benign neoplasm of skin of back May 06 2014 9:24AM Benign neoplasm of scalp May 06 2014 9:24AM Lentigines May 06 2014 9:24AM Scar May 06 2014 9:24AM Lipoma May 14 2014 3:00PM Upper Respiratory Infections Jul 29 2014 9:02AM Payers Insurance Name Company Name Plan Name Plan Number Policy Number Jose G cy Group Number Start Date Medicare Part A Medicare Part A [id number] Monday, 2011 [employer] [id number] N/A [facility] [id number] 2012 Amber Thompson [employer] [facility] Amber Thompson [facility] In [id number] N/A Medicare Part B Medicare Of [place] [id number] N/A [employer] [id number] N/A History of Encounters Visit Date Visit Type Provider 07/29/2014 Office visit Farida GILLESPIE RN 05/28/2014 Procedures Francisco Bouman DO 05/14/2014 Office visit Francisco Medina DO 05/06/2014 Office visit Jon Alvarez 05/02/2014 Office visit Eloisa Hamlin POLICE SPECIALIST 01/31/2014 Office visit Jon Alvarez 12/19/2013 Office visit Eloisa Hamlin POLICE SPECIALIST 11/01/2013 Office visit Jon Alvarez 08/24/2013 Procedures Francisco Bouman DO 08/10/2013 Procedures Francisco Bouman DO 05/18/2013 Procedures Francisco Bouman DO 05/02/2013 Procedures Francisco Bouman DO 04/23/2013 Office visit Eloisa Hamlin POLICE SPECIALIST 10/28/2011 Office visit Eloisa Hamlin APRN 04/20/2011 [...]
--- OUTSIDE RECORDS SUMMARY | 2019-10-10 12:10 | XMS REPORT ---
Author Author Shahbaz Guerra Organization [facility] Address [address] [place] [id number] Care Team Providers Care Braze Operator Name Role Phone Ray Guerra PCP Tomy Rosado PreferredProvider Allergies and Adverse Reactions Name Reaction Notes NO KNOWN DRUG ALLERGIES Plan of Treatment Planned Activity Comments Planned Date Planned Time Plan/Goal BASIC METABOLIC PANEL 03/30/2016 12:00 AM URIC ACID. 03/30/2016 12:00 AM URIC ACID. 03/30/2016 12:00 AM Abd/Pelvis CT w and w/o contrast 06/07/2017 12:00 AM Basic metabolic panel 06/29/2013 12:00 [...] sanofi pasteur PMC Fluzone > 12 Years [id number] In tramuscular Left Deltoid 01/26/2010 11/05/2008 999 [...] 2017 3:14PM Hematuria Jun 07 2017 9:49AM Payers Insurance Name Company Name Plan Name Plan Number Policy Number Jose G cy Group Number Start Date Medicare RHC Medicare RHC [id number] N/A Aetna Medicare Supplement Aetna Medicare Supplement [id number] N/A BCBS Bcbs [facility] [id number] 2012 Clark Donna [id number] In c [id number] N/A Medicare Part B Medicare Of [place] [id number] N/A [employer] [id number] N/A Medicare Part A Medicare Part A [id number] Monday, 2011 [employer] [id number] N/A Medicare Part A Medicare - Lab/Xray [id number] Monday, September 26, 2011 History of Encounters Visit Date Visit Type Provider 06/01/2017 Office visit Ray Guerra MD 03/31/2017 Office visit Eloisa Hamlin AIR BRUSH DECORATOR 03/13/2017 Office visit Garland Rascon NP 09/06/2016 [facility] Faraz De Los Santos MD 03/26/2016 Office visit Eloisa Hamlin AIR BRUSH DECORATOR 01/06/2015 Nurse visit Eloisa Hamlin AIR BRUSH DECORATOR 12/30/2014 Office visit Eloisa Hamlin AIR BRUSH DECORATOR 12/25/2014 Procedures Francisco Bouman DO 12/11/2014 Procedures Francisco Bouman DO 07/29/2014 Office visit aFrida GILLESPIE RN 05/28/2014 Procedures Francisco Bouman DO 05/14/2014 Office visit Francisco Medina DO 05/06/2014 Office visit Jon Alvarez 05/02/2014 Office visit Eloisa Hamlin AIR BRUSH DECORATOR 01/31/2014 Office visit Jon Alvarez 12/19/2013 Office visit Eloisa Hamlin AIR BRUSH DECORATOR 11/01/2013 Office visit Jon Alvarez 08/24/2013 Procedures [...]
--- OUTSIDE RECORDS SUMMARY | 2019-10-10 12:11 | XMS REPORT ---
Author Author Shahbaz Guerra Organization [facility] Address [address] [place] [id number] Care Team Providers Care Worldwide Chief Creative Officer Name Role Phone Ray Guerra PCP Tomy Rosado PreferredProvider Allergies and Adverse Reactions Name Reaction Notes NO KNOWN DRUG ALLERGIES Plan of Treatment Planned Activity Comments Planned Date Planned Time Plan/Goal BASIC METABOLIC PANEL 03/30/2016 12:00 AM URIC ACID. 03/30/2016 12:00 AM URIC ACID. 03/30/2016 12:00 AM Abd/Pelvis CT w and w/o contrast 06/07/2017 12:00 AM BMP 06/07/2017 12:00 AM Basic metabolic panel 06/29/2013 [...] 12:00 AM ALBUMIN URINE MICROALBUMIN QUANTIATIVE R deyanirawed 11/19/2010 12:00 AM DRAIN/INJ JOINT/BURSA W/O US [...] sanofi pasteur PMC Fluzone > 12 Years [id number] In tramuscular Left Deltoid 01/26/2010 11/05/2008 999 [...] 2017 9:54AM Hematuria Jun 07 2017 1:05PM Payers Insurance Name Company Name Plan Name Plan Number Policy Number Jose G cy Group Number Start Date Medicare RHC Medicare RHC [id number] N/A Aetna Medicare Supplement Aetna Medicare Supplement [id number] N/A BCBS Bcbs Of [place] [id number] 2012 Clark [employer] In c [id number] N/A Medicare Part B Medicare Of [place] [id number] N/A Medico Medico [id number] N/A Medicare Part A Medicare Part A [id number] Monday, 2011 Medico Insurance Company Medico Insurance Company [id number] N/A Medicare Part A Medicare - Lab/Xray [id number] Monday, September 26, 2011 History of Encounters Visit Date Visit Type Provider 06/01/2017 Office visit Ray Guerra MD 03/31/2017 Office visit Eloisa Hamlin SALESPERSON FLOWERS 03/13/2017 Office visit Garland Rascon NP 09/06/2016 [facility] Faraz De Los Santos MD 03/26/2016 Office visit Eloisa Hamlin SALESPERSON FLOWERS 01/06/2015 Nurse visit Eloisa Hamlin SALESPERSON FLOWERS 12/30/2014 Office visit Eloisa Hamlin SALESPERSON FLOWERS 12/25/2014 Procedures Francisco Medina DO 12/11/2014 Procedures Francisco Carol DO 07/29/2014 Office visit Farida GILLESPIE RN 05/28/2014 Procedures Francisco Medina DO 05/14/2014 Office visit Francisco Medina DO 05/06/2014 Office visit Jon Alvarez 05/02/2014 Office visit Eloisa Hamlin SALESPERSON FLOWERS 01/31/2014 Office visit Jon Alvarez 12/19/2013 Office visit Eloisa Hamlin SALESPERSON FLOWERS 11/01/2013 Office visit Jon Alvarez 08/24/2013 Procedures Francisco Medina DO 08/10/2013 Procedures Francisco Boana DO 05/18/2013 Procedures Francisco Boana DO 05/02/2013 Procedures Francisco Bouman DO 04/23/2013 Office visit Eloisa Hamlin APRN 10/28/2011 Office visit Eloisa Hamlin APRN 04/20/2011 Office visit Eloisa Hamlin SALESPERSON FLOWERS 02/04/2011 Office visit Dashawn Drew MD 12/23/2010 Office visit Dashawn Drew MD 11/19/2010 Office visit Dashawn Drew MD 11/12/2010 Office visit Dashawn Drew MD 10/22/2010 Office visit Dashawn Drew MD 10/21/2010 Hospital Faraz De Los Santos MD 09/21/2010 [facility] Faraz De Los Santos MD 07/27/2010 [...]
--- OUTSIDE RECORDS SUMMARY | 2019-10-10 12:11 | XMS REPORT ---
Author Author Shahbaz Guerra Organization [facility] Address [address] [place] [id number] Care Team Providers Care Rotary Cutter Name Role Phone Ray Guerra PCP Tomy Rosado PreferredProvider Allergies and Adverse Reactions Name Reaction Notes NO KNOWN DRUG ALLERGIES Plan of Treatment Planned Activity Comments Planned Date Planned Time Plan/Goal BASIC METABOLIC PANEL 03/30/2016 12:00 AM URIC ACID. 03/30/2016 12:00 AM URIC ACID. 03/30/2016 12:00 AM Abdomen One View - MOB Xray 06/22/2017 12:00 AM URINALYSIS W/MICRO C&S IF IND 07/13/2017 12:00 AM Basic metabolic panel 06/29/2013 12:00 [...] HC BMI BSA BMI Percentile O2 Sat(%) 07/13/2017 9:02:00 AM 118 mmHg 68 mmHg [...] CA Reviewed 06/22/2017 12:00 AM CYSTOSCOPY Reviewed 04/23/2013 12:00 AM COMPLETE CBC W/AUTO [...] AA 115 eGFR >60 mL/min/1.73meGFR AA* >60 History Of Immunizations Name Date Admin Mfg Name Mfg Code Trade Name Lot# Route Inj Vis Given Vis Pub CVX Influenza 01/09/2008 Not Entered NE Not Entered Not Entered Not Entered 03/28/2019 03/28/2019 999 Td 10/07/1999 sanofi pasteur PMC DECAVAC Intramuscular Not E ntered 03/28/2019 03/28/2019 999 Influenza 01/26/2010 sanofi pasteur PMC Fluzone > 12 Years [id number] In tramuscular Left Deltoid 01/26/2010 11/05/2008 999 Tdap 01/06/2015 GlaxCodeHS SKB BOOSTRIX [id number] Intramuscula r Right Deltoid [...] 9:36AM Right-sided Nephrolithiasis Jul 13 2017 9:05AM Payers Insurance Name Company Name Plan Name Plan Number Policy Number Jose G cy Group Number Start Date Medicare Part B Medicare Of [place] [id number] N/A Aetna Medicare Supplement Aetna Medicare Supplement [id number] N/A Medicare [facility] Medicare [facility] [id number] N/A [facility] [id number] 2012 [facility] [employer] [facility] [place] [id number] N/A Medico Medico [id number] N/A Medicare Part A Medicare Part A [id number] Monday, 2011 Medico Insurance Company Medico Insurance Company [id number] N/A Medicare Part A Medicare - Lab/Xray [id number] Monday, September 26, 2011 History of Encounters Visit Date Visit Type Provider 07/13/2017 Office visit Ray Guerra MD 06/22/2017 Procedures Ray Guerra MD 06/01/2017 Office visit Ray Guerra MD 03/31/2017 Office visit Eloisa Hamlin SHELTER ADVOCATE 03/13/2017 Office visit Garland Rascon NP 09/06/2016 Hospital Faraz De Los Santos MD 03/26/2016 Office visit Eloisa Hamlin SHELTER ADVOCATE 01/06/2015 Nurse visit Eloisa Hamlin SHELTER ADVOCATE 12/30/2014 Office visit Eloisa Hamlin SHELTER ADVOCATE 12/25/2014 Procedures Francisco Bouman DO 12/11/2014 Procedures Francisco Bouman DO 07/29/2014 Office visit Farida GILLESPIE RN 05/28/2014 Procedures Francisco Bouman DO 05/14/2014 Office visit Francisco Bouman DO 05/06/2014 Office visit Jon Alvarez 05/02/2014 Office visit Eloisa Hamlin SHELTER ADVOCATE 01/31/2014 Office visit Jon Alvarez 12/19/2013 Office visit Eloisa Hamlin SHELTER ADVOCATE 11/01/2013 Office visit Jon Alvarez 08/24/2013 Procedures Francisco Bouman DO 08/10/2013 Procedures Francisco Bouman DO 05/18/2013 Procedures Francisco Bouman DO 05/02/2013 Procedures Francisco Bouman DO 04/23/2013 Office visit Eloisa Hamlin SHELTER ADVOCATE 10/28/2011 Office visit Eloisa Hamlin SHELTER ADVOCATE 04/20/2011 Office visit Eloisa Hamlin SHELTER ADVOCATE 02/04/2011 Office visit Dashawn Drew MD 12/23/2010 [...]
--- OUTSIDE RECORDS SUMMARY | 2019-10-10 12:12 | XMS REPORT ---
Author Author Shahbaz Guerra Organization [facility] Address [address] [place] [id number] Care Team Providers Care Marketing Coordinator Name Role Phone Ray Guerra PCP Tomy [...] sanofi pasteur PMC Fluzone > 12 Years [id number] In tramuscular Left Deltoid 01/26/2010 11/05/2008 999 [...] Number Start Date Medicare RHC Medicare RHC [id number] N/A Aetna Medicare Supplement Aetna Medicare Supplement [id number] N/A BCBS Bcbs Of [place] [id number] 2012 Clark [employer] In c [id number] N/A Medicare Part B Medicare Of [place] [id number] N/A Medico Medico [id number] N/A Medicare Part A Medicare Part A [id number] Monday, 2011 Medico Insurance Company Medico Insurance Company [id number] N/A Medicare Part A Medicare - Lab/Xray [id number] Monday, September 26, 2011 History of Encounters Visit Date Visit Type Provider 06/01/2017 Office visit Ray Guerra MD 03/31/2017 Office visit Eloisa Hamlin PROJECTION WELDING MACHINE OPERATOR 03/13/2017 Office visit Garland Rascon NP 09/06/2016 [facility] Faraz De Los Santos MD 03/26/2016 Office visit Eloisa Hamlin PROJECTION WELDING MACHINE OPERATOR 01/06/2015 Nurse visit Eloisa Hamlin PROJECTION WELDING MACHINE OPERATOR 12/30/2014 Office visit Eloisa Hamlin PROJECTION WELDING MACHINE OPERATOR 12/25/2014 Procedures Francisco Medina DO 12/11/2014 Procedures Francisco Carol DO 07/29/2014 Office visit Farida GILLESPIE RN 05/28/2014 Procedures Francisco Medina DO 05/14/2014 Office visit Francisco eMdina DO 05/06/2014 Office visit Jon Alvarez 05/02/2014 Office visit Eloisa Hamlin PROJECTION WELDING MACHINE OPERATOR 01/31/2014 Office visit Jon Alvarez 12/19/2013 Office visit Eloisa Hamlin PROJECTION WELDING MACHINE OPERATOR 11/01/2013 Office visit Jon Alvarez 08/24/2013 Procedures Francisco Medina DO 08/10/2013 Procedures Francisco Boana DO 05/18/2013 Procedures Francisco Boana DO 05/02/2013 Procedures Francisco Bouman DO 04/23/2013 Office visit Eloisa Hamlin APRN 10/28/2011 Office visit Eloisa Hamlin APRN 04/20/2011 Office visit Eloisa Hamlin PROJECTION WELDING MACHINE OPERATOR 02/04/2011 Office visit Dashawn Drew MD [...]
--- OUTSIDE RECORDS SUMMARY | 2019-10-10 12:12 | XMS REPORT ---
Author Author Shahbaz Hamlin Organization [facility] Address [address] [place], [place] [id number] Care Team Providers Care Restaurant Shift Supervisor Name Role Phone Eloisa Hamlin PCP Unavailable Allergies and Adverse Reactions Name [...] once daily allopurinol 100 mg oral tablet 12/30/2014 TAKE 1 TAB LET BY MOUTH EVERY DAY lisinopril 10 mg oral tablet 12/30/2014 TAKE 1 TABLE T BY MOUTH EVERY DAY Lipitor 20 mg oral tablet 01/02/2015 take 1 tablet (20 mg) by oral route once daily at bedtime Lipitor 20 mg oral tablet 01/02/2015 TAKE 1 TABLET (20 MG) BY ORAL ROUTE ONCE DAILY AT BEDTIME atorvastatin 20 mg oral tablet 03/05/2015 T BROOKS 1 TABLET BY MOUTH EVERY NIGHT AT BEDTIME atorvastatin 20 mg oral tablet 11/20/2015 T BROOKS 1 TABLET BY MOUTH EVERY NIGHT AT BEDTIME lisinopril 10 mg oral tablet 12/23/2015 TAKE 1 TABLE T BY MOUTH EVERY [...] HC BMI BSA BMI Percentile O2 Sat(%) 12/30/2014 8:49:00 AM 124 mmHg 74 mmHg [...] Comments Alcohol Use - Rare Exercises regularly [employer] service College graduate, 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 Tobacco Never smoker History of Procedures Date Ordered Description Order Status 12/30/2014 12:00 AM COMPLETE CBC W/AUTO DIFF WBC Returned 12/30/2014 12:00 AM COMPREHEN METABOLIC PANEL Returned 12/30/2014 12:00 AM LIPID PANEL Returned 12/30/2014 12:00 AM GLYCOSYLATED HEMOGLOBIN TEST Returned 12/30/2014 12:00 AM ASSAY OF BLOOD/URIC ACID Returned 01/06/2015 12:00 AM Fluzone MEDICARE Only Reviewed 01/06/2015 12:00 AM TDAP VACCINE 7 YRS/> IM Reviewed 11/19/2010 12:00 AM DRAIN/INJ JOINT/BURSA W/O US [...] 25.0 mg/dLLDL (CALC) 107.0 mg/dLURIC ACID 7.4 mg/dLGLUCOSE 116.0 mg/dLSODIUM 137.0 mmol/LPOTASSIUM 3.50 mmol/LCHLORIDE 103.0 [...] mg/dLCHOLESTEROL 139.0 mg/dLHDL 25.0 mg/dLLDL (CALC) 89.0 mg/dLEst Avg Glucose 131.2 mg/dL 05/06/2014 7:43 AM [...] %MCV 98.0 fLMCH 33.50 pgMCHC 34.10 g/dLRDW CV 13.0 %MPV 11.0 fLPLT 206 %NEUT 65.60 %%LYMP 23.90 %%MONO 7.90 %%EOS 2.20 %%BASO 0.40 %#NEUT 4.98 #LYMP 1.82 #MONO 0.60 #EOS 0.17 #BASO 0.03 URIC ACID 6.5 mg/dLGLUCOSE 107.0 mg/dLSODIUM 140.0 mmol/LPOTASSIUM 4.40 mmol/LCHLORIDE 107.0 mmol/LCO2 24.0 mmol/LBUN 17.0 mg/dLCREATININE 0.80 mg/dLSGOT/AST 22.0 IU/LSGPT/ALT 25.0 IU/LALK PHOS 89.0 IU/LTOTAL PROTEIN 6.70 g/dLALBUMIN 3.80 g/dLTOTAL BILI 0.80 mg/dLCALCIUM 9.30 mg/dLeGFR >60 mL/min/1.73mTRIGLYCERIDES 83.0 mg/dLCHOLESTEROL 149.0 mg/dLHDL 28.0 mg/dLLDL (CALC) 104.0 mg/dLEstim. Avg Glu (eAG) 114 mg/dL History Of Immunizations Name Date Admin Mfg Name Mfg Code Trade Name Lot# Route Inj Vis Given Vis Pub CVX Influenza 01/09/2008 Not Entered NE Not Entered Not Entered Not Entered 03/28/2019 03/28/2019 999 Td 10/07/1999 sanofi pasteur PMC DECAVAC Intramuscular Not E ntered 03/28/2019 03/28/2019 999 Influenza 01/26/2010 sanofi pasteur PMC Fluzone > 12 Years [id number] In tramuscular Left Deltoid 01/26/2010 11/05/2008 999 [...] keratoses, inflamed b 2014 9:24AM Seborrheic keratoses b 2014 9:24AM Benign neoplasm of skin of back b 2014 9:24AM Benign neoplasm of scalp b 2014 9:24AM Lentigines b 2014 9:24AM Scar b 2014 9:24AM Lipoma [...] for Tdap vaccination Jan 06 2015 3:06PM Payers Insurance Name Company Name Plan Name Plan Number Policy Number Jose G cy Group Number Start Date Medicare Part A Medicare Part A [id number] Monday, 2011 Medico Insurance Company Medico Insurance Company [id number] N/A [facility] [id number] 2012 Amber Thompson [employer] [facility] Amber Thompson [employer] [place] [id number] N/A Medicare Part B Medicare Of [place] [id number] N/A Medico Medico [id number] N/A History of Encounters Visit Date Visit Type Provider 01/06/2015 Nurse visit Eloisa Hamlin APRN 12/30/2014 Office visit Eloisa Hamlin POLISHER AND BUFFER 12/25/2014 Procedures Francisco Bouman DO 12/11/2014 Procedures Francisco Bouman DO 07/29/2014 Office visit Farida GILLESPIE RN 05/28/2014 Procedures Francisco Bouman DO 05/14/2014 Office visit Francisco Bouman DO 05/06/2014 Office visit Jon Alvarez 05/02/2014 Office visit Eloisa Hamlin POLISHER AND BUFFER 01/31/2014 Office visit Jon Alvarez 12/19/2013 Office visit Eloisa Hamlin POLISHER AND BUFFER 11/01/2013 Office visit Jon Alvarez 08/24/2013 Procedures Francisco Bouman DO 08/10/2013 Procedures Francisco Bouman DO 05/18/2013 Procedures Francisco Bouman DO 05/02/2013 Procedures Francisco Bouman DO 04/23/2013 Office visit Eloisa Hamlin POLISHER AND BUFFER 10/28/2011 Office visit Eloisa Hamlin POLISHER AND BUFFER 04/20/2011 Office visit Eloisa Hamlin POLISHER AND BUFFER 02/04/2011 Office visit Dashawn Drew MD 12/23/2010 [...]
--- OUTSIDE RECORDS SUMMARY | 2019-10-10 12:13 | XMS REPORT ---
Author Author Shahbaz Guerra Organization [facility] Address [address] [place] [id number] Care Team Providers Care Baggage Handling Supervisor Name Role Phone Ray Guerra PCP Tomy Rosado PreferredProvider Allergies and Adverse Reactions Name Reaction Notes NO KNOWN DRUG ALLERGIES Plan of Treatment Planned Activity Comments Planned Date Planned Time Plan/Goal BASIC METABOLIC PANEL 03/30/2016 12:00 AM URIC ACID. 03/30/2016 12:00 AM URIC ACID. 03/30/2016 12:00 AM URINALYSIS W/MICRO C&S IF IND 06/01/2017 12:00 AM Basic metabolic panel 06/29/2013 12:00 [...] 12:00 AM ASSAY OF URINE/URIC ACID Reviewed 04/23/2013 12:00 AM COMPLETE CBC [...] mL/min/1.73meGFR AA* >60 URIC ACID 6.0 mg/dL History Of Immunizations Name Date Admin Mfg Name Mfg Code Trade Name Lot# Route Inj Vis Given Vis Pub CVX Influenza 01/09/2008 Not Entered NE Not Entered Not Entered Not Entered 03/28/2019 03/28/2019 999 Td 10/07/1999 sanofi pasteur PMC DECAVAC Intramuscular Not E ntered 03/28/2019 03/28/2019 999 Influenza 01/26/2010 sanofi pasteur PMC Fluzone > 12 Years [id number] In tramuscular Left Deltoid 01/26/2010 11/05/2008 999 [...] 10:00AM Urinary urgency Jun 01 2017 3:30PM Payers Insurance Name Company Name Plan Name Plan Number Policy Number Jose G cy Group Number Start Date Medicare RHC Medicare RHC [id number] N/A Aetna Medicare Supplement Aetna Medicare Supplement [id number] N/A BCBS Bcbs [facility] [id number] 2012 Amber Thompson [employer] [facility] Amber Enriquez [place] [id number] N/A Medicare Part B Medicare Of [place] [id number] N/A Medico Medico [id number] N/A Medicare Part A Medicare Part A [id number] Monday, 2011 Medico Insurance Company Medico Insurance Company [id number] N/A Medicare Part A Medicare - Lab/Xray [id number] Monday, September 26, 2011 History of Encounters Visit Date Visit Type Provider 06/01/2017 Office visit Ray Guerra MD 03/31/2017 Office visit Eloisa Hamlin DRAFTER (CAD) ELECTRONIC 03/13/2017 Office visit Garland Rascon NP 09/06/2016 Hospital Faraz De Los Santos MD 03/26/2016 Office visit Eloisa Hamlin DRAFTER (CAD) ELECTRONIC 01/06/2015 Nurse visit Eloisa Hamlin DRAFTER (CAD) ELECTRONIC 12/30/2014 Office visit Eloisa Hamlin DRAFTER (CAD) ELECTRONIC 12/25/2014 Procedures Francisco Bouman DO 12/11/2014 Procedures Francisco Bouman DO 07/29/2014 Office visit Farida GILLESPIE RN 05/28/2014 Procedures Francisco Bouman DO 05/14/2014 Office visit Francisco Bouman DO 05/06/2014 Office visit Jon Alvarez 05/02/2014 Office visit Eloisa Hamlin DRAFTER (CAD) ELECTRONIC 01/31/2014 Office visit Jon Alvarez 12/19/2013 Office visit Eloisa Hamlin DRAFTER (CAD) ELECTRONIC 11/01/2013 Office visit Jon Alvarez 08/24/2013 Procedures Francisco Bouman DO 08/10/2013 Procedures Francisco Bouman DO 05/18/2013 Procedures Francisco Bouman DO 05/02/2013 Procedures Francisco Bouman DO 04/23/2013 Office visit Eloisa Hamlin DRAFTER (CAD) ELECTRONIC 10/28/2011 Office visit Eloisa Hamlin DRAFTER (CAD) ELECTRONIC 04/20/2011 Office visit Eloisa Hamlin DRAFTER (CAD) ELECTRONIC 02/04/2011 Office visit Dashanw Drew MD 12/23/2010 Office visit Dashawn Drew [...]
--- OUTSIDE RECORDS SUMMARY | 2019-10-10 12:13 | XMS REPORT ---
Author Author Shahbaz Guerra Organization [facility] Address [address] [place] [id number] Care Team Providers Care Waistband Setter Name Role Phone Ray Guerra PCP Tomy Rosado PreferredProvider Allergies and Adverse Reactions Name Reaction Notes NO KNOWN DRUG ALLERGIES Plan of Treatment Planned Activity Comments Planned Date Planned Time Plan/Goal BASIC METABOLIC PANEL 03/30/2016 12:00 AM URIC ACID. 03/30/2016 12:00 AM URIC ACID. 03/30/2016 12:00 AM URINALYSIS W/MICRO C&S IF IND 06/01/2017 12:00 AM PSA TOTAL 06/01/2017 12:00 AM Basic metabolic panel 06/29/2013 [...] sanofi pasteur PMC Fluzone > 12 Years [id number] In tramuscular Left Deltoid 01/26/2010 11/05/2008 999 [...] Group Number Start Date Medicare RH Medicare [facility] [id number] N/A Aetna Medicare Supplement Aetna Medicare Supplement [id number] N/A BCBS Bcbs [facility] [id number] [facility], 2012 Clark [employer] Amber Thompson [place] [id number] N/A Medicare Part B Medicare Of [place] [id number] N/A Medico Medico [id number] N/A Medicare Part A Medicare Part A [id number] Monday, 2011 Medico Insurance Company [employer] [id number] N/A Medicare Part A Medicare - Lab/Xray [id number] Monday, September 26, 2011 History of Encounters Visit Date Visit Type Provider 06/01/2017 Office visit Ray Guerra MD 03/31/2017 Office visit Eloisa Boubacar RECREATION FACILITY ATTENDANT 03/13/2017 Office visit Garland Rascon NP 09/06/2016 Hospital Fraaz De Los Santos MD 03/26/2016 Office visit Eloisa Hamlin RECREATION FACILITY ATTENDANT 01/06/2015 Nurse visit Eloisa Hamlin RECREATION FACILITY ATTENDANT 12/30/2014 Office visit Eloisa Hamlin RECREATION FACILITY ATTENDANT 12/25/2014 Procedures Francisco Bouman DO 12/11/2014 Procedures Francisco Bouman DO 07/29/2014 Office visit Farida GILLESPIE RN 05/28/2014 Procedures Francisco Bouman DO 05/14/2014 Office visit Francisco Bouman DO 05/06/2014 Office visit Jon Alvarez 05/02/2014 Office visit Eloisa Boubacar RECREATION FACILITY ATTENDANT 01/31/2014 Office visit Jon Alvarez 12/19/2013 Office visit Eloisa Boubacar RECREATION FACILITY ATTENDANT 11/01/2013 Office visit Jon Alvarez 08/24/2013 Procedures Francisco Bouman DO 08/10/2013 Procedures Francisco Bouman DO 05/18/2013 Procedures Francisco Bouman DO 05/02/2013 Procedures Francisco Bouman DO 04/23/2013 Office visit Eloisa Hamlin RECREATION FACILITY ATTENDANT 10/28/2011 Office visit Eloisa Hamlin RECREATION FACILITY ATTENDANT 04/20/2011 Office visit Eloisa Hamlin RECREATION FACILITY ATTENDANT 02/04/2011 Office visit Dashawn Drew MD 12/23/2010 [...] visit Ammon Wilson DO 10/04/2009 Laboratory Dusty Fodr MD 10/03/2009 Office visit Ammon Wilson DO 10/02/2009 Laboratory Dusty Ford MD 09/05/2009 Office visit Rudolph Betancourt DO 09/01/2009 Laboratory Dusty Ford MD 12/18/2008 Office visit Lana MCCORMICK
--- OUTSIDE RECORDS SUMMARY | 2019-10-10 12:14 | XMS REPORT ---
Author Author Shahbaz Guerra Organization [facility] Address [address] [place] [id number] Care Team Providers Care Valve Machine Operator Name Role Phone Ray Guerra PCP [...] sanofi pasteur PMC Fluzone > 12 Years [id number] In tramuscular Left Deltoid 01/26/2010 11/05/2008 999 [...] Number Start Date Medicare RHC Medicare RHC [id number] N/A Aetna Medicare Supplement Aetna Medicare Supplement [id number] N/A BCBS Bcbs Of [place] [id number] 2012 Clark [employer] In c [id number] N/A Medicare Part B Medicare Of [place] [id number] N/A Medico Medico [id number] N/A Medicare Part A Medicare Part A [id number] Monday, 2011 Medico Insurance Company Medico Insurance Company [id number] N/A Medicare Part A Medicare - Lab/Xray [id number] Monday, September 26, 2011 History of Encounters Visit Date Visit Type Provider 06/01/2017 Office visit Ray Guerra MD 03/31/2017 Office visit Eloisa Hamlin HOME SUPPORT WORKER 03/13/2017 Office visit Garland Rsacon NP 09/06/2016 [facility] Faraz De Los Santos MD 03/26/2016 Office visit Eloisa Hamlin HOME SUPPORT WORKER 01/06/2015 Nurse visit Eloisa Hamlin HOME SUPPORT WORKER 12/30/2014 Office visit Eloisa Hamlin HOME SUPPORT WORKER 12/25/2014 Procedures Francisco Medina DO 12/11/2014 Procedures Francisco Carol DO 07/29/2014 Office visit Farida GILLESPIE RN 05/28/2014 Procedures Francisco Medina DO 05/14/2014 Office visit Francisco Medina DO 05/06/2014 Office visit Jon Alvarez 05/02/2014 Office visit Eloisa Hamlin HOME SUPPORT WORKER 01/31/2014 Office visit Jon Alvarez 12/19/2013 Office visit Eloisa Hamlin HOME SUPPORT WORKER 11/01/2013 Office visit Jon Alvarez 08/24/2013 Procedures Francisco Medina DO 08/10/2013 Procedures Francisco Boana DO 05/18/2013 Procedures Francisco Boana DO 05/02/2013 Procedures Francisco Bouman DO 04/23/2013 Office visit Eloisa Hamlin APRN 10/28/2011 Office visit Eloisa Hamlin APRN 04/20/2011 Office visit Eloisa Hamlin HOME SUPPORT WORKER 02/04/2011 Office visit Dashawn Drew MD 12/23/2010 [...]
--- OUTSIDE RECORDS SUMMARY | 2019-10-10 12:14 | XMS REPORT ---
Author Author Shahbaz Guerra Organization [facility] Address [address] [place] [id number] Care Team Providers Care Industrial Chemicals Supervisor Name Role Phone Ray Guerra PCP [...] sanofi pasteur PMC Fluzone > 12 Years [id number] In tramuscular Left Deltoid 01/26/2010 11/05/2008 999 [...] 2017 9:49AM Hematuria Jun 07 2017 9:54AM Payers Insurance Name Company Name Plan Name Plan Number Policy Number Jose G cy Group Number Start Date Medicare RHC Medicare RHC [id number] N/A Aetna Medicare Supplement Aetna Medicare Supplement [id number] N/A BCBS Bcbs [facility] [id number] 2012 Amber Thompson [employer] Clark Donna [employer] In c [id number] N/A Medicare Part B Medicare Of [place] [id number] N/A Medico Medico [id number] N/A Medicare Part A Medicare Part A [id number] Monday, 2011 Medico Insurance Company Medico Insurance Company [id number] N/A Medicare Part A Medicare - Lab/Xray [id number] Monday, September 26, 2011 History of Encounters Visit Date Visit Type Provider 06/01/2017 Office visit Ray Guerra MD 03/31/2017 Office visit Eloisa Hamlin HEAD OF ENGLISH 03/13/2017 Office visit Garland Rascon NP 09/06/2016 [facility] Zak De Los Santos MD 03/26/2016 Office visit Eloisa Hamlin HEAD OF ENGLISH 01/06/2015 Nurse visit Eloisa Hamlin HEAD OF ENGLISH 12/30/2014 Office visit Eloisa Hamlin HEAD OF ENGLISH 12/25/2014 Procedures Francisco Bouman DO 12/11/2014 Procedures Francisco Bouman DO 07/29/2014 Office visit Farida GILLESPIE RN 05/28/2014 Procedures Francisco Bouman DO 05/14/2014 Office visit Francisco Medina DO 05/06/2014 Office visit Jon Alvarez 05/02/2014 Office visit Eloisa Hamlin HEAD OF ENGLISH 01/31/2014 Office visit Jon Alvarez 12/19/2013 Office visit Eloisa Hamlin HEAD OF ENGLISH 11/01/2013 Office visit Jon Alvarez 08/24/2013 Procedures Francisco Bouman DO 08/10/2013 Procedures Francisco Bouman DO 05/18/2013 Procedures Francisco Bouman DO 05/02/2013 Procedures Francisco Bouman DO 04/23/2013 Office visit Eloisa Hamlin APRN 10/28/2011 Office visit Eloisa Hamlin APRN 04/20/2011 Office visit Eloisa Hamlin HEAD OF ENGLISH 02/04/2011 Office visit Dashawn Drew MD 12/23/2010 [...]
--- OUTSIDE RECORDS SUMMARY | 2019-10-10 12:15 | XMS REPORT ---
Author Author Shahbaz Rascon [facility] ou Address [address] [place] [id number] Care Team Providers Care Gas Compressor Turbine Operator Name Role Phone Garland Rascon PCP Tomy Rosado PreferredProvider Allergies and Adverse [...] 1 TABLE T BY MOUTH EVERY DAY amoxicillin 875 mg oral tablet 03/13/2017 t brooks 1 tablet (875 mg) by oral route every 12 hours for 10 days Tessalon Perles 100 mg oral capsule 03/13/2017 take 1 capsule (100 mg) by oral route 3 times per day as needed for cough Medrol (Faisal) 4 mg oral tablets,dose pack 03/13/2017 take as directed Name Start Date Expiration [...] 4 days allopurinol 100 mg oral tablet 02/25/2017 02/25/2017 T BROOKS 1 TABLET BY MOUTH EVERY DAY Discontinued Name Start Date Discontinued Date SIG [...] HC BMI BSA BMI Percentile O2 Sat(%) 03/13/2017 1:17:00 PM 130 mmHg 60 mmHg [...] sanofi pasteur PMC Fluzone > 12 Years [id number] In tramuscular Left Deltoid 01/26/2010 11/05/2008 999 Tdap 01/06/2015 GlaxoSmSkyfiberine SKB BOOSTRIX [id number] Intramuscula r Right Deltoid [...] Upper Respiratory Infections Mar 13 2017 1:20PM Payers Insurance Name Company Name Plan Name Plan Number Policy Number Jose G cy Group Number Start Date Medicare RHC Medicare RHC [id number] N/A Aetna Medicare Supplement Aetna Medicare Supplement [id number] N/A BCBS [facility] [id number] 2012 [facility] [employer] [place] [id number] N/A Medicare Part B Medicare Of [place] [id number] N/A Medico Medico [id number] N/A Medicare Part A Medicare Part A [id number] Monday, 2011 Medico Insurance Company [employer] [id number] N/A Medicare Part A Medicare - Lab/Xray [id number] Monday, September 26, 2011 History of Encounters Visit Date Visit Type Provider 03/13/2017 Office visit Garland Rascon NP 09/06/2016 [facility] Faraz De Los Santos MD 03/26/2016 Office visit Eloisa Hamlin PROP ATTENDANT 01/06/2015 Nurse visit Eloisa Hamlin PROP ATTENDANT 12/30/2014 Office visit Eloisa Hamlin PROP ATTENDANT 12/25/2014 Procedures Francisco Medina DO 12/11/2014 Procedures Francisco Bouman DO 07/29/2014 Office visit Farida GILLESPIE RN 05/28/2014 Procedures Francisco Bouman DO 05/14/2014 Office visit Francisco Bouman DO 05/06/2014 Office visit Jon Alvarez 05/02/2014 Office visit Eloisa Hamlin PROP ATTENDANT 01/31/2014 Office visit Jon Alvarez 12/19/2013 Office visit Eloisa Boubacar PROP ATTENDANT 11/01/2013 Office visit Jon Alvarez 08/24/2013 Procedures Francisco Bouman DO 08/10/2013 Procedures Francisco Bouman DO 05/18/2013 Procedures Francisco Bouman DO 05/02/2013 Procedures Francisco Bouman DO 04/23/2013 Office visit Eloisa Hamlin PROP ATTENDANT 10/28/2011 Office visit Eloisa Hamlin PROP ATTENDANT 04/20/2011 Office visit Eloisa Boubacar PROP ATTENDANT 02/04/2011 Office visit Dashawn Drew MD 12/23/2010 Office visit Dashawn Drew MD 11/19/2010 Office visit Dashawn Drew MD 11/12/2010 Office visit Dashawn Drew MD 10/22/2010 Office visit Dashawn Drew MD 10/21/2010 Hospital Faraz De Los Santos MD 09/21/2010 [facility] Faraz De Los Santos MD 07/27/2010 Office [...]
--- OUTSIDE RECORDS SUMMARY | 2019-10-10 12:15 | XMS REPORT ---
Author Author Shahbaz Hamlin Organization [facility] oup Address [address] [place], [place] [id number] Care Team Providers Care Director Of Head Start Name Role Phone Eloisa Hamlin PCP Unavailable [...] (81 mg) by oral route once daily Zithromax Z-Faisal 250 mg oral tablet 12/30/2014 01/04/2015 take 2 tablets (500 mg) by oral route once daily for 1 day then 1 tablet (250 mg) by oral route once daily for 4 days allopurinol 100 mg oral tablet 12/30/2014 TAKE [...] BY ORAL ROUTE ONCE DAILY AT BEDTIME Name Start Date Expiration Date [...] oral tablets,dose pack 07/29/2014 take as directed Discontinued Name Start Date [...] 05/10/2013 Diabetes Mellitus, Type II Active 12/19/2013 lumbar back pain Active 12/19/2013 Benign neoplasm of [...] 12:00 AM ASSAY OF BLOOD/URIC ACID Returned 11/19/2010 12:00 AM DRAIN/INJ JOINT/BURSA W/O US [...] 25.0 mg/dLLDL (CALC) 89.0 mg/dLHGB A1C 6.20 %Est Avg [...] mg/dLCHOLESTEROL 149.0 mg/dLHDL 28.0 mg/dLLDL (CALC) 104.0 mg/dLHemoglobin A1c 5.60 %Estim. Avg Glu (eAG) 114 mg/dL History Of Immunizations Name Date Admin Mfg Name Mfg Code Trade Name Lot# Route Inj Vis Given Vis Pub CVX Influenza 01/09/2008 Not Entered NE Not Entered Not Entered Not Entered 03/28/2019 03/28/2019 999 Td 10/07/1999 sanofi pasteur PMC DECAVAC Intramuscular Not E ntered 03/28/2019 03/28/2019 999 Influenza 01/26/2010 sanofi pasteur PMC Fluzone > 12 Years [id number] In tramuscular Left Deltoid 01/26/2010 11/05/2008 999 [...] unspecified 05/10/2013 Diabetes Mellitus, Type II 12/19/2013 lumbar back pain 12/19/2013 Cardiomegaly Jan 26 2010 [...] 2014 8:51AM Gout Dec 30 2014 8:51AM Payers Insurance Name Company Name Plan Name Plan Number Policy Number Jose G cy Group Number Start Date Medicare Part A Medicare Part A [id number] Monday, 2011 Medico Insurance Company Medico [employer] Company [id number] N/A [facility] [id number] 2012 [place] [employer] [facility] [employer] [place] [place] [id number] N/A Medicare Part B Medicare Of [place] [id number] N/A Medico Medico [id number] N/A History of Encounters Visit Date Visit Type Provider 12/30/2014 Office visit Eloisa Hamlin APRN 12/25/2014 Procedures Francisco Medina DO 12/11/2014 Procedures Francisco Medina DO 07/29/2014 Office visit Farida GILLESPIE RN 05/28/2014 Procedures Francisco Medina DO 05/14/2014 Office visit Francisco Medina DO 05/06/2014 Office visit Jon Alvarez 05/02/2014 Office visit Eloisa Hamlin DUCK FARMER 01/31/2014 Office visit Jon Alvarez 12/19/2013 Office visit Eloisa Hamlin APRN 11/01/2013 Office visit Jon Alvarez 08/24/2013 Procedures Francisco Medina DO 08/10/2013 Procedures Francisco Bouman DO 05/18/2013 Procedures Francisco Bouman DO 05/02/2013 Procedures Francisco Bouman DO 04/23/2013 Office visit Eloisa Boubacar DUCK FARMER 10/28/2011 Office visit Eloisa Boubacar DUCK FARMER 04/20/2011 Office visit Eloisa Hamlin DUCK FARMER 02/04/2011 Office visit Dashawn Drew MD 12/23/2010 [...]
--- OUTSIDE RECORDS SUMMARY | 2019-10-10 12:15 | XMS REPORT ---
Author Author Shahbaz Guerra Organization [facility] oup Address [address] [place] [id number] Care Team Providers Care Returned Case Inspector Name Role Phone Ray Guerra PCP Tomy [...] sanofi pasteur PMC Fluzone > 12 Years [id number] In tramuscular Left Deltoid 01/26/2010 11/05/2008 999 [...] 3:30PM Elevated PSA Jun 01 2017 3:36PM Payers Insurance Name Company Name Plan Name Plan Number Policy Number Jose G cy Group Number Start Date Medicare RHC Medicare [facility] [id number] N/A Aetna Medicare Supplement Aetna Medicare Supplement [id number] N/A [facility] [id number] 2012 Amber Thompson [employer] Amber Enri[place] c [id number] N/A Medicare Part B Medicare Of [place] [id number] N/A Medico Medico [id number] N/A Medicare Part A Medicare Part A [id number] Monday, 2011 Medico Insurance Company Medico [employer] Company [id number] N/A Medicare Part A Medicare - Lab/Xray [id number] Monday, September 26, 2011 History of Encounters Visit Date Visit Type Provider 06/01/2017 Office visit Ray Guerra MD 03/31/2017 Office visit Eloisa Hamlin COTTON INSPECTOR 03/13/2017 Office visit Garland Rascon NP 09/06/2016 Hospital Faraz De Los Santos MD 03/26/2016 Office visit Eloisa Hamlin COTTON INSPECTOR 01/06/2015 Nurse visit Eloisa Hamlin COTTON INSPECTOR 12/30/2014 Office visit Eloisa Hamlin COTTON INSPECTOR 12/25/2014 Procedures Francisco Bouman DO 12/11/2014 Procedures Francisco Bouman DO 07/29/2014 Office visit Farida GILLESPIE RN 05/28/2014 Procedures Francisco Bouman DO 05/14/2014 Office visit Francisco Bouman DO 05/06/2014 Office visit Jon Alvarez 05/02/2014 Office visit Eloisa Hamlin COTTON INSPECTOR 01/31/2014 Office visit Jon Alvarez 12/19/2013 Office visit Eloisa Hamlin COTTON INSPECTOR 11/01/2013 Office visit Jon Alvarez 08/24/2013 Procedures Francisco Bouman DO 08/10/2013 Procedures Francisco Bouman DO 05/18/2013 Procedures Francisco Bouman DO 05/02/2013 Procedures Francisco Bouman DO 04/23/2013 Office visit Eloisa Hamlin COTTON INSPECTOR 10/28/2011 Office visit Eloisa Hamlin COTTON INSPECTOR 04/20/2011 Office visit Eloisa Hamlin COTTON INSPECTOR 02/04/2011 Office visit Dashawn Drew MD 12/23/2010 [...]
--- OUTSIDE RECORDS SUMMARY | 2019-10-10 12:16 | XMS REPORT ---
Author Author Shahbaz Hamlin Organization [facility] oup Address [address] [place], [place] [phone] Care Team Providers Care Electrical Integrator Name Role Phone Eloisa Hamlin PCP Unavailable Tomy Rosado PreferredProvider Unavailable Allergies and Adverse Reactions Name Reaction Notes NO KNOWN DRUG ALLERGIES Plan of Treatment Planned Activity Comments Planned Date Planned Time Plan/Goal Basic metabolic panel 06/29/2013 12:00 AM Medications [...] TABLE T BY MOUTH EVERY DAY allopurinol 300 mg oral tablet 03/30/2016 03/25/2017 t brooks 1 tablet (300 mg) by oral route once daily for [...] Comments Alcohol Use - Rare Exercises regularly [employer] service College graduate, 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 Tobacco Never [...] sanofi pasteur PMC Fluzone > 12 Years [id number] In tramuscular Left Deltoid 01/26/2010 11/05/2008 999 Tdap 01/06/2015 GlaxPicostorm Code Labsine SKB BOOSTRIX [id number] Intramuscula r Right Deltoid [...] for prostate cancer Mar 26 2016 8:18AM Payers Insurance Name Company Name Plan Name Plan Number Policy Number Jose G cy Group Number Start Date Medicare Part A Medicare [facility] [id number] N/A Aetna Medicare Supplement Aetna Medicare Supplement [id number] N/A BCBS Bcbs [facility] [id number] 2012 [employer] [place] c [id number] N/A Medicare Part B Medicare Of [place] [id number] N/A Medico Medico [id number] N/A Medicare Part A Medicare Part A [id number] Monday, 2011 Medico Insurance Company Medico [employer] Company [id number] N/A Medicare Part A Medicare - Lab/Xray [id number] Monday, September 26, 2011 History of Encounters Visit Date Visit Type Provider 03/26/2016 Office visit Eloisa Hamlin SUMAC TANNER 01/06/2015 Nurse visit Eloisa Hamlin SUMAC TANNER 12/30/2014 Office visit Eloisa Hamlin SUMAC TANNER 12/25/2014 Procedures Francisco Boana DO 12/11/2014 Procedures Francisco Boana DO 07/29/2014 Office visit Farida GILLESPIE RN 05/28/2014 Procedures Francisco Carol DO 05/14/2014 Office visit Francisco Medina DO 05/06/2014 Office visit Jon Alvarez 05/02/2014 Office visit Eloisa Hamlin SUMAC TANNER 01/31/2014 Office visit Jon Alvarez 12/19/2013 Office visit Eloisa Hamlin SUMAC TANNER 11/01/2013 Office visit Jon Alvarez 08/24/2013 Procedures Francisco Medina DO 08/10/2013 Procedures Francisco Boana DO 05/18/2013 Procedures Francisco Boana DO 05/02/2013 Procedures Francisco Boana DO 04/23/2013 Office visit Eloisa Hamlin APRN [...]
--- OUTSIDE RECORDS SUMMARY | 2019-10-10 12:16 | XMS REPORT ---
Author Author Shahbaz Hamlin Organization [facility] oup Address [address] [place], [place] [id number] Care Team Providers Care Wire Rope Sales Representative Name Role Phone Eloisa Hamlin PCP Unavailable Allergies and Adverse Reactions Name Reaction Notes NO KNOWN DRUG ALLERGIES Plan of Treatment Planned Activity Comments Planned Date Planned Time Plan/Goal COMPLETE CBC W/AUTO DIFF WBC 12/30/2014 12:00 AM COMPREHEN METABOLIC PANEL 12/30/2014 12:00 AM LIPID PANEL 12/30/2014 12:00 AM GLYCOSYLATED HEMOGLOBIN TEST 12/30/2014 12:00 AM ASSAY OF BLOOD/URIC ACID 12/30/2014 12:00 AM METABOLIC PANEL TOTAL CA 06/29/2013 12:00 AM [...] sanofi pasteur PMC Fluzone > 12 Years [id number] In tramuscular Left Deltoid 01/26/2010 11/05/2008 999 [...] lower limb b 2014 9:24AM Actinic keratosis May 06 2014 [...] Date Medicare Part A Medicare Part A [id number] Monday, 2011 Medico Insurance Company Medico [employer] Company [id number] N/A [facility] [id number] 2012 Amber Thompson [employer] [facility] Amber Enri[place] [id number] N/A Medicare Part B Medicare Of [place] [id number] N/A Medico Medico [id number] N/A History of Encounters Visit Date Visit Type Provider 12/30/2014 Office visit Eloisa Hamlin HOT STAMP OPERATOR 12/25/2014 Procedures Francisco Medina DO 12/11/2014 Procedures Francisco Bouman DO 07/29/2014 Office visit Farida GILLESPIE RN 05/28/2014 Procedures Francisco Bouman DO 05/14/2014 Office visit Francisco Bouman DO 05/06/2014 Office visit Jon Alvarez 05/02/2014 Office visit Eloisa Hamlin HOT STAMP OPERATOR 01/31/2014 Office visit Jon Alvarez 12/19/2013 Office visit Eloisa Hamlin HOT STAMP OPERATOR 11/01/2013 Office visit Jon Alvarez 08/24/2013 Procedures Francisco Bouman DO 08/10/2013 Procedures Frnacisco Bouman DO 05/18/2013 Procedures Francisco Bouman DO 05/02/2013 Procedures Francisco Bouman DO 04/23/2013 Office visit Eloisa Hamlin HOT STAMP OPERATOR 10/28/2011 Office visit Eloisa Hamlin HOT STAMP OPERATOR 04/20/2011 Office visit Eloisa Hamlin HOT STAMP OPERATOR 02/04/2011 Office visit Dashawn Drew MD [...]
--- OUTSIDE RECORDS SUMMARY | 2019-10-10 12:16 | XMS REPORT ---
Author Author Shahbaz Medina Organization [facility] oup Address [address] [place], [place] [address] Care Team Providers Care Systems Mgr Name Role Phone Francisco Medina PCP Unavailable Allergies and Adverse Reactions Name [...] once daily allopurinol 100 mg oral tablet 12/19/2013 12/14/2014 t brooks 1 tablet (100 mg) by oral route once daily for 90 days lisinopril 10 mg oral tablet 12/19/2013 TAKE 1 TABLE T BY MOUTH EVERY DAY allopurinol 100 mg oral tablet 02/25/2014 TAKE 1 TAB LET BY MOUTH EVERY DAY Medrol (Faisal) 4 mg oral tablets,dose pack 07/29/2014 take as directed Name Start Date [...] 3 times per day for 10 days Discontinued Name Start Date Discontinued Date [...] of skin of lower limb Active Actinic keratosis Active 05/06/2014 Seborrheic keratoses, inflamed Active 5 Seborrheic keratoses Active 05/06/2014 Benign neoplasm of skin of back Active 05/06/19 15 Benign Neoplasm Of Scalp Active 05/06/2014 Lentigines Active 05/06/2014 Scar Active 05/06/2014 Lipoma Active 05/14/2014 Actinic keratosis Active 12/11/2014 Lentigo Active 12/13/2014 Vital Signs Date Time BP-Sys(mm[Hg] BP-Sowmya(mm[Hg]) HR(bpm) RR(rpm) Temp WT HT HC BMI BSA BMI Percentile O2 Sat(%) 12/11/2014 1:19:00 PM 111 mmHg 67 mmHg [...] Comments Alcohol Use - Rare Exercises regularly [employer] service [employer] graduate, 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 [id number] 2012 [employer] [facility] [employer] [place] [id number] N/A Medicare Part B Medicare Of [place] [id number] N/A Medico Medico [id number] N/A History of Encounters Visit Date Visit Type Provider 12/11/2014 Procedures Francisco Medina DO 07/29/2014 Office visit Farida GILLESPIE RN 05/28/2014 Procedures Francisco Medina DO 05/14/2014 Office visit Francisco Medina DO 05/06/2014 Office visit Jon Alvarez 05/02/2014 Office visit Eloisa Hamlin CORN POPPER 01/31/2014 Office visit Jon Alvarez 12/19/2013 Office [...] 10/22/2010 Office visit Dashawn Drew MD 10/21/2010 [facility] Faraz De Los Santos MD 09/21/2010 Hospital [...]
--- OUTSIDE RECORDS SUMMARY | 2019-10-10 12:17 | XMS REPORT ---
Author Author Shahbaz Hamlin Organization [facility] oup Address [address] [place], [place] [phone] Care Team Providers Care Eye Surgeon Name Role Phone Eloisa Hamlin PCP Tomy [...] HC BMI BSA BMI Percentile O2 Sat(%) 03/31/2017 9:58:00 AM 133 mmHg 68 mmHg 64 bpm 18 rpm 97.8 F 263.5 lbs 70 in 37.81 kg/m2 2.43 m2 96 % 03/13/2017 1:17:00 PM 130 mmHg 60 mmHg 96 bpm 98.5 F 266 lbs 94 % 03/26/2016 8:16:00 AM 132 mmHg 72 mmHg 72 bpm 18 rpm 97.4 F 240.375 lbs 70 in 34.4899 kg/m 2.32 m2 98 % 12/30/2014 8:49:00 AM 124 mmHg 74 mmHg 56 bpm 18 rpm 96.9 F 234.125 lbs 70 in 33.59 kg/m2 2.2902 m 97 % 12/25/2014 8:54:00 AM 112 mmHg 65 mmHg 76 bpm 16 rpm 98.1 F 231 lbs 70 in 33.1447 kg/m 2.27 m2 12/11/2014 1:19:00 PM 111 mmHg 67 mmHg 73 bpm 18 rpm 98.4 F 232 lbs 70 in 33.29 kg/m2 2.2798 m 07/29/2014 9:01:00 AM 119 mmHg 71 mmHg 53 bpm 20 rpm 97.4 F 232.4 lbs 71 in 32.4129 kg/m 2.30 m2 96 % 05/28/2014 9:34:00 AM 124 mmHg 76 mmHg 62 bpm 20 rpm 97.4 F 233 lbs 71 in 32.50 kg/m2 2.3009 m 05/14/2014 2:53:00 PM 108 mmHg 69 mmHg 76 bpm 16 rpm 98.3 F 235.312 lbs 71 in 32.8191 kg/m 2.31 m2 05/06/2014 9:27:00 AM 136 mmHg [...] F 259 lbs 70 in 37.1622 kg/m 2.41 m2 96 % 01/26/2010 1:54:00 PM 120 mmHg 80 mmHg 58 bpm 18 rpm 97.6 F 272.125 lbs 70 in 39.05 kg/m2 2.4691 m 96 % 10/28/2009 1:42:00 PM [...] sanofi pasteur PMC Fluzone > 12 Years [id number] In tramuscular Left Deltoid 01/26/2010 11/05/2008 999 Tdap 01/06/2015 [employer] SKB BOOSTRIX [id number] Intramuscula r Right Deltoid [...] for prostate cancer Mar 31 2017 10:00AM Payers Insurance Name Company Name Plan Name Plan Number Policy Number Jose G cy Group Number Start Date Medicare [facility] Medicare [facility] [id number] N/A Aetna Medicare Supplement Aetna Medicare Supplement [id number] N/A [facility] [id number] 2012 Amber Thompson [employer] [facility] [employer] [facility] [place] [id number] N/A Medicare Part B Medicare Of [place] [id number] N/A Medico Medico [id number] N/A Medicare Part A Medicare Part A [id number] Monday, 2011 [employer] Company [employer] [id number] N/A Medicare Part A Medicare - Lab/Xray [id number] Monday, September 26, 2011 History of Encounters Visit Date Visit Type Provider 03/31/2017 Office visit Eloisa Hamlin APRN 03/13/2017 Office visit Garland Rascon NP 09/06/2016 [facility] Faraz De Los Santos MD 03/26/2016 Office visit Eloisa Hamlin CONSTRUCTION PROJECT MANAGER 01/06/2015 Nurse visit Eloisa Hamlin CONSTRUCTION PROJECT MANAGER 12/30/2014 Office visit Eloisa Hamlin CONSTRUCTION PROJECT MANAGER 12/25/2014 Procedures Francisco Bouman DO 12/11/2014 Procedures Francisco Bouman DO 07/29/2014 Office visit Farida GILLESPIE RN 05/28/2014 Procedures Francisco Bouman DO 05/14/2014 Office visit Francisco Bouman DO 05/06/2014 Office visit Jon Alvarez 05/02/2014 Office visit Eloisa Hamlin CONSTRUCTION PROJECT MANAGER 01/31/2014 Office visit Jon Alvarez 12/19/2013 Office visit Eloisa Hamlin CONSTRUCTION PROJECT MANAGER 11/01/2013 Office visit Jon Alvarez 08/24/2013 Procedures Francisco Bouman DO 08/10/2013 Procedures Francisco Bouman DO 05/18/2013 Procedures Francisco Bouman DO 05/02/2013 Procedures Francisco Bouman DO 04/23/2013 Office visit Eloisa Hamlin CONSTRUCTION PROJECT MANAGER 10/28/2011 Office visit Eloisa Hamlin CONSTRUCTION PROJECT MANAGER 04/20/2011 Office visit Eloisa Hamlin CONSTRUCTION PROJECT MANAGER 02/04/2011 Office visit Dashawn Drew MD 12/23/2010 Office visit Dashawn Drew MD 11/19/2010 Office visit Dashawn Drew MD 11/12/2010 Office visit Dashawn Drew MD 10/22/2010 Office visit Dashawn Drew MD 10/21/2010 Hospital Faraz De Los Santos MD 09/21/2010 [facility] Faraz De Los Santos MD 07/27/2010 [...]
--- OUTSIDE RECORDS SUMMARY | 2019-10-10 12:17 | XMS REPORT ---
Author Author Shahbaz Guerra Organization [facility] oup Address [address] [place] [id number] Care Team Providers Care Engineer Geophysical Laboratory Name Role Phone Ray Guerra PCP Tomy [...] sanofi pasteur PMC Fluzone > 12 Years [id number] In tramuscular Left Deltoid 01/26/2010 11/05/2008 999 [...] Number Start Date Medicare RHC Medicare RHC [id number] N/A Aetna Medicare Supplement Aetna Medicare Supplement [id number] N/A BCBS Bcbs [employer] [place] [id number] 2012 [employer] c [id number] N/A Medicare Part B Medicare Of [place] [id number] N/A Medico Medico [id number] N/A Medicare Part A Medicare Part A [id number] Monday, 2011 Medico Insurance Company Med[employer] Company [id number] N/A Medicare Part A Medicare - Lab/Xray [id number] Monday, September 26, 2011 History of Encounters Visit Date Visit Type Provider 06/01/2017 Office visit Ray Guerra MD 03/31/2017 Office visit Eloisa Hamlin FULFILLMENT SPECIALIST 03/13/2017 Office visit Garland Rascon NP 09/06/2016 [facility] Faraz De Los Santos MD 03/26/2016 Office visit Eloisa Hamlin FULFILLMENT SPECIALIST 01/06/2015 Nurse visit Eloisa Hamlin FULFILLMENT SPECIALIST 12/30/2014 Office visit Eloisa Hamlin FULFILLMENT SPECIALIST 12/25/2014 Procedures Francisco Medina DO 12/11/2014 Procedures Francisco Carol DO 07/29/2014 Office visit Farida GILLESPIE RN 05/28/2014 Procedures Francisco Medina DO 05/14/2014 Office visit Francisco Medina DO 05/06/2014 Office visit Jon Alvarez 05/02/2014 Office visit Eloisa Hamlin FULFILLMENT SPECIALIST 01/31/2014 Office visit Jon Alvarez 12/19/2013 Office visit Eloisa Hamlin FULFILLMENT SPECIALIST 11/01/2013 Office visit Jon Alvarez 08/24/2013 Procedures Francisco Medina DO 08/10/2013 Procedures Francisco Boana DO 05/18/2013 Procedures Francisco Boana DO 05/02/2013 Procedures Francisco Bouman DO 04/23/2013 Office visit Eloisa Hamlin APRN 10/28/2011 Office visit Eloisa Hamlin APRN 04/20/2011 Office visit Eloisa Hamlin FULFILLMENT SPECIALIST 02/04/2011 Office visit Dashawn Drew MD 12/23/2010 Office visit Dashawn Drew MD 11/19/2010 Office visit Dashawn Drew MD 11/12/2010 Office visit Dashawn Drew MD 10/22/2010 Office visit Dashawn Drew MD 10/21/2010 Hospital Faraz De Los Santos MD 09/21/2010 [facility] Faraz De oLs Santos MD 07/27/2010 Office visit Ammon Wilson [...]
--- OUTSIDE RECORDS SUMMARY | 2019-10-10 12:18 | XMS REPORT ---
Author Author Shahbaz Hamlin Organization [facility] Address [address] [place], [place] [id number] Care Team Providers Care Amusement Park Entertainer Name Role Phone Eloisa Hamlin PCP Unavailable [...] melanoma in situ Treatment Excision - [facility] Tx Date 05/02/13 Cancer Stage [...] sanofi pasteur PMC Fluzone > 12 Years [id number] In tramuscular Left Deltoid 01/26/2010 11/05/2008 999 [...] limb May 06 2014 9:24AM Actinic keratosis b 2014 9:24AM [...] Date Medicare Part A Medicare Part A [id number] Monday, 2011 [employer] SCRM [id number] N/A [facility] [id number] 2012 Amber Thompson Services [facility] Amber Thompson [facility] In [id number] N/A Medicare Part B Medicare Of [place] [id number] N/A [employer] Medico [id number] N/A History of Encounters Visit Date Visit Type Provider 01/06/2015 Nurse visit Eloisa Hamlin APRN 12/30/2014 Office visit Eloisa Hamlin WARE DRESSER 12/25/2014 Procedures Francisco Medina DO 12/11/2014 Procedures Francisco Medina DO 07/29/2014 Office visit Farida GILLESPIE RN 05/28/2014 Procedures Francisco Medina DO 05/14/2014 Office visit Francisco Medina DO 05/06/2014 Office visit Jon Alvarez 05/02/2014 Office visit Eloisa Hamlin WARE DRESSER 01/31/2014 Office visit Jon Alvarez 12/19/2013 Office visit Eloisa Hamlin WARE DRESSER 11/01/2013 Office visit Jon Alvarez 08/24/2013 Procedures Francisco Bouman DO 08/10/2013 Procedures Francisco Bouman DO 05/18/2013 Procedures Francisco Bouman DO 05/02/2013 Procedures Francisco Bouman DO 04/23/2013 Office visit Eloisa Hamlin WARE DRESSER 10/28/2011 Office visit Eloisa Hamlin WARE DRESSER 04/20/2011 Office visit Eloisa Hamlin WARE DRESSER 02/04/2011 Office visit Dashawn Drew MD 12/23/2010 Office visit Dashawn Drew MD 11/19/2010 Office visit Dashawn Drew MD 11/12/2010 Office visit Dashawn Drew MD 10/22/2010 Office visit Dashawn Drew MD 10/21/2010 Hospital Faraz De Los Santos MD 09/21/2010 [facility] Faraz De Los Santos MD 07/27/2010 [...]
--- OUTSIDE RECORDS SUMMARY | 2019-10-10 12:18 | XMS REPORT ---
Author Author Shahbaz Hamlin Organization [facility] Address [address] [place] [id number] Care Team Providers Care Printing Press Machinist Name Role Phone Eloisa Hamlin PCP Tomy Rosado PreferredProvider Allergies and Adverse Reactions Name Reaction Notes NO KNOWN DRUG ALLERGIES Plan of Treatment Planned Activity Comments Planned Date Planned Time Plan/Goal BASIC METABOLIC PANEL 03/30/2016 12:00 AM URIC ACID. 03/30/2016 12:00 AM URIC ACID. 03/30/2016 12:00 AM CBC With Auto Differential 03/31/2017 12:00 AM CMP (comprehensive metabolic panel) 03/31/2017 12:00 AM .Lipid Panel 03/31/2017 12:00 AM Hemoglobin A1C 03/31/2017 12:00 AM PSA TOTAL 03/31/2017 12:00 AM URIC ACID. 03/31/2017 12:00 AM URIC ACID. 03/31/2017 12:00 AM Basic metabolic panel 06/29/2013 12:00 [...] sanofi pasteur PMC Fluzone > 12 Years [id number] In tramuscular Left Deltoid 01/26/2010 11/05/2008 999 Tdap 01/06/2015 [employer] SKB BOOSTRIX [id number] Intramuscula r Right Deltoid [...] Group Number Start Date Medicare RH Medicare [facility] [id number] N/A Aetna Medicare Supplement Aetna Medicare Supplement [id number] N/A [id number] [employer] [facility] [employer] [place] [id number] N/A Medicare Part B Medicare Of [place] [id number] N/A Medico Medico [id number] N/A Medicare Part A Medicare Part A [id number] Monday, 2011 [employer] Company [employer] Jack Erwin [id number] N/A Medicare Part A Medicare - Lab/Xray [id number] Monday, September 26, 2011 History of Encounters Visit Date Visit Type Provider 03/31/2017 Office visit Eloisa Hamlin BUSINESS SUPPORT PROFESSIONAL 03/13/2017 Office visit Garland Rascon NP 09/06/2016 Hospital Faraz De Los Santos MD 03/26/2016 Office visit Eloisa Hamlin BUSINESS SUPPORT PROFESSIONAL 01/06/2015 Nurse visit Eloisa Hamlin BUSINESS SUPPORT PROFESSIONAL 12/30/2014 Office visit Eloisa Hamlin BUSINESS SUPPORT PROFESSIONAL 12/25/2014 Procedures Francisco Bouman DO 12/11/2014 Procedures Francisco Bouman DO 07/29/2014 Office visit Farida GILLESPIE RN 05/28/2014 Procedures Francisco Bouman DO 05/14/2014 Office visit Francisco Bouman DO 05/06/2014 Office visit Jon Alvarez 05/02/2014 Office visit Eloisa Hamlin BUSINESS SUPPORT PROFESSIONAL 01/31/2014 Office visit Jon Alvarez 12/19/2013 Office visit Eloisa Hamlin BUSINESS SUPPORT PROFESSIONAL 11/01/2013 Office visit Jon Alvarez 08/24/2013 Procedures Francisco Bouman DO 08/10/2013 Procedures Francisco Bouman DO 05/18/2013 Procedures Francisco Bouman DO 05/02/2013 Procedures Francisco Bouman DO 04/23/2013 Office visit Eloisa Hamlin BUSINESS SUPPORT PROFESSIONAL 10/28/2011 Office visit Eloisa Hamlin BUSINESS SUPPORT PROFESSIONAL 04/20/2011 Office visit Eloisa Hamlin BUSINESS SUPPORT PROFESSIONAL 02/04/2011 Office visit Dashawn Drew MD 12/23/2010 [...]
--- OUTSIDE RECORDS SUMMARY | 2019-10-10 12:19 | XMS REPORT ---
Author Author Shahbaz Guerra Organization [facility] Address [address] [place] [id number] Care Team Providers Care Edger Runner Name Role Phone Ray Guerra PCP Tomy [...] sanofi pasteur PMC Fluzone > 12 Years [id number] In tramuscular Left Deltoid 01/26/2010 11/05/2008 999 [...] Group Number Start Date Medicare RHC Medicare [facility] [id number] N/A Aetna Medicare Supplement Aetna Medicare Supplement [id number] N/A [facility] [id number] 2012 Amber Thompson [employer] Amber Enriquez In c [id number] N/A Medicare Part B Medicare Of [place] [id number] N/A Medico Medico [id number] N/A Medicare Part A Medicare Part A [id number] Monday, 2011 [employer] Company [employer] Company [id number] N/A Medicare Part A Medicare - Lab/Xray [id number] Monday, September 26, 2011 History of Encounters Visit Date Visit Type Provider 06/01/2017 Office visit Ray Guerra MD 03/31/2017 Office visit Eloisa Hamlin MULTIPLE COIL WINDER 03/13/2017 Office visit Garland Rascon NP 09/06/2016 Hospital Faraz De Los Santos MD 03/26/2016 Office visit Eloisa Hamlin MULTIPLE COIL WINDER 01/06/2015 Nurse visit Eloisa Hamlin MULTIPLE COIL WINDER 12/30/2014 Office visit Eloisa Hamlin MULTIPLE COIL WINDER 12/25/2014 Procedures Francisco Bouman DO 12/11/2014 Procedures Francisco Bouman DO 07/29/2014 Office visit Farida GILLESPIE RN 05/28/2014 Procedures Francisco Bouman DO 05/14/2014 Office visit Francisco Bouman DO 05/06/2014 Office visit Jon Alvarez 05/02/2014 Office visit Eloisa Hamlin MULTIPLE COIL WINDER 01/31/2014 Office visit Jon Alvarez 12/19/2013 Office visit Eloisa Hamlin MULTIPLE COIL WINDER 11/01/2013 Office visit Jon Alvarez 08/24/2013 Procedures Francisco Bouman DO 08/10/2013 Procedures Francisco Bouman DO 05/18/2013 Procedures Francisco Bouman DO 05/02/2013 Procedures Francisco Bouman DO 04/23/2013 Office visit Eloisa Hamlin MULTIPLE COIL WINDER 10/28/2011 Office visit Eloisa Hamlin MULTIPLE COIL WINDER 04/20/2011 Office visit Eloisa Hamlin MULTIPLE COIL WINDER 02/04/2011 Office visit Dashawn Drew MD 12/23/2010 [...]
--- OUTSIDE RECORDS SUMMARY | 2019-10-10 12:19 | XMS REPORT ---
Author Author Shahbaz Hamlin Organization [facility] Address [address] [place], [place] [id number] Care Team Providers Care Pleating Supervisor Name Role Phone Eloisa Hamlin PCP Unavailable Tomy Rosado PreferredProvider Unavailable Allergies and Adverse Reactions Name Reaction Notes NO KNOWN DRUG ALLERGIES Plan of Treatment Planned Activity Comments Planned Date Planned Time Plan/Goal Hemoglobin A1C 03/26/2016 12:00 AM Basic metabolic panel 06/29/2013 12:00 [...] AT BEDTIME allopurinol 100 mg oral tablet 03/26/2016 TAKE 1 TAB LET BY MOUTH EVERY DAY atorvastatin 20 mg oral tablet 03/26/2016 T [...] AM LIPID PANEL Returned 03/26/2016 12:00 AM ASSAY OF PSA [...] sanofi pasteur PMC Fluzone > 12 Years [id number] In tramuscular Left Deltoid 01/26/2010 11/05/2008 999 Tdap 01/06/2015 GlaxLendingStarine SKB BOOSTRIX [id number] Intramuscula r Right Deltoid [...] limb May 06 2014 9:24AM Actinic keratosis Feb 2014 9:24AM [...] Number Start Date Medicare Part A Medicare [facility] [id number] N/A Aetna Medicare Supplement Aetna Medicare Supplement [id number] [facility]/A [facility] [id number] 2012 Amber Thompson Services [facility] [place] [id number] N/A Medicare Part B Medicare Of [place] [id number] N/A Medico Medico [id number] N/A Medicare Part A Medicare Part A [id number] Monday, 2011 [employer] Company [employer] Company [id number] N/A Medicare Part A Medicare - Lab/Xray [id number] Monday, September 26, 2011 History of Encounters Visit Date Visit Type Provider 03/26/2016 Office visit Eloisa Hamlin APRN 01/06/2015 Nurse visit Eloisa Hamlin APRN 12/30/2014 Office visit Eloisa Hamlin APRN 12/25/2014 Procedures Francisco Bouman DO 12/11/2014 Procedures Francisco Bouman DO 07/29/2014 Office visit Farida GILLESPIE RN 05/28/2014 Procedures Francisco Bouman DO 05/14/2014 Office visit Francisco Bouman DO 05/06/2014 Office visit Jon Alvarez 05/02/2014 Office visit Eloisa Hamlin PHARMACY TECH 01/31/2014 Office visit Jon Alvarez 12/19/2013 Office visit Eloisa Hamlin PHARMACY TECH 11/01/2013 Office visit Jon Alvarez 08/24/2013 Procedures Francisco Bouman DO 08/10/2013 Procedures Francisco Bouman DO 05/18/2013 Procedures Francisco Bouman DO 05/02/2013 Procedures Francisco Bouman DO 04/23/2013 Office visit Eloisa Hamlin PHARMACY TECH 10/28/2011 Office visit Eloisa Hamlin PHARMACY TECH 04/20/2011 Office visit Eloisa Hamlin PHARMACY TECH 02/04/2011 Office visit Dashawn Drew MD 12/23/2010 Office visit Dashawn Drew MD 11/19/2010 Office visit Dashawn Drew MD 11/12/2010 Office visit Dashawn Drew MD 10/22/2010 Office visit Dashawn Drew MD 10/21/2010 Hospital Faraz De Los Santos MD 09/21/2010 [facility] Faraz De Los Santos MD 07/27/2010 [...]
--- OUTSIDE RECORDS SUMMARY | 2019-10-10 12:19 | XMS REPORT ---
Author Author Shahbaz Hamlin Organization [facility] Address [address] [place], [place] [phone] Care Team Providers Care Progressive Assembler And Fitter Name Role Phone Eloisa Hamlin PCP Unavailable [...] sanofi pasteur PMC Fluzone > 12 Years [id number] In tramuscular Left Deltoid 01/26/2010 11/05/2008 999 [...] Date Medicare Part A Medicare Part A [id number] Monday, 2011 [employer] Company [employer] Company [id number] N/A [facility] [id number] 2012 [employer] [facility] [employer] [place] [place] [id number] N/A Medicare Part B Medicare Of [place] [id number] N/A [employer] Medico [id number] N/A History of Encounters Visit Date Visit Type Provider 12/30/2014 Office visit Eloisa Hamlin APRN 12/25/2014 Procedures Francisco Medina DO 12/11/2014 Procedures Francisco Medina DO 07/29/2014 Office visit Farida GILLESPIE RN 05/28/2014 Procedures Francisco Medina DO 05/14/2014 Office visit Francisco Medina DO 05/06/2014 Office visit Jon Alvarez 05/02/2014 Office visit Eloisa Hamlin FILM VAULT SUPERVISOR 01/31/2014 Office visit Jon Alvarez 12/19/2013 Office visit Eloisa Hamlin APRN 11/01/2013 Office visit Jon Alvarez 08/24/2013 Procedures Francisco Medina DO 08/10/2013 Procedures Francisco Bouman DO 05/18/2013 Procedures Francisco Bouman DO 05/02/2013 Procedures Francisco Bouman DO 04/23/2013 Office visit Eloisa Boubacar FILM VAULT SUPERVISOR 10/28/2011 Office visit Eloisa Boubacar FILM VAULT SUPERVISOR 04/20/2011 Office visit Eloisa Hamlin FILM VAULT SUPERVISOR 02/04/2011 Office visit Dashawn Drew MD 12/23/2010 [...]
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
[2019-10-10] MEDS ORDERED: ONDANSETRON 4 MG/2 ML (SDV) Z0FRAN IVP PRN (13:30)
[2019-10-10] MEDS ORDERED: morphine INJ 10 MG/ML 1ML (SYR OR VIAL) IVP ONE (13:30)
[2019-10-10] MEDS ORDERED: MUPIROCIN 2% OINT 22 GM (BACTROBAN) TUBE ONE (13:38)
--- NOTE | 2019-10-10 14:05 | Progress Note-Post Operative ---
Post-Operative Progess Note Surgeon (s)/Hatchery Attendant (s) Surgeon JOANN ALVAREZ MD Hatchery Attendant: Michael BEEBE MD Pre-Operative Diagnosis Prostate cancer cT1c, PSA 3.97, [place] 7 (3+4) Post-Operative Diagnosis Same as pre-op Procedure & Operative Findings Date of Procedure 10/10/19 Procedure Performed/Findings (1) 100% Cesium 131 permanent prostate seed implant (2) Injection of biodegradable hydrogel prostate-rectal spacer utilizing the SpaceOAR system (3) Cystogram Prostate volume 53.3 cc Anesthesia Type General Estimated Blood Loss Estimated blood loss (mL): Minimal Specimens/Packing Specimens Removed None Packing: None JOANN ALVAREZ MD Oct 10, 2019 14:05
--- NOTE | 2019-10-10 14:33 | Diagnostic Imaging Report ---
INDICATION: Fluoroscopy for prostate brachytherapy. Fluoroscopy was performed for prostate brachytherapy. 9 seconds of fluoroscopic time was utilized. 2 images were obtained over the low midline pelvis demonstrating brachytherapy of the prostate. IMPRESSION: Fluoroscopy for prostate brachytherapy. Dictated by: Dictated on workstation # [id number]
== END 2019-10-10 16:15 | disposition home or self-care (01) ==
LOC: SDC 10:30
PROVIDERS: ATTEND Radiology Radiation Oncology
DX: C61 Malignant neoplasm of prostate (principal); K21.9 Gastro-esophageal reflux disease without esophagitis; I10 Essential (primary) hypertension; M19.90 Unspecified osteoarthritis, unspecified site; E78.5 Hyperlipidemia, unspecified; M10.9 Gout, unspecified; Z87.442 Personal history of urinary calculi; Z86.010 Personal history of colon polyps; Z96.652 Presence of left artificial knee joint; Z85.820 Personal history of malignant melanoma of skin; Z79.82 Long term (current) use of aspirin; Z79.899 Other long term (current) drug therapy
CPT/HCPCS: 55874; 55875; 76000; 76965; 77290; 77318; 77332; 77370; 77470; 77778; 87081; C1715 ×2; C2643

== ENCOUNTER 2019-11-08 10:24 | Outpatient (RCR) | payer MEDICARE, OTHER ==
[~2019-11-08 10:24] MED LIST changes: +ACET1TAB43 PO; +CIPR-226 PO
== END 2020-02-06 | disposition still patient (30) ==
LOC: ONC 10:24
PROVIDERS: ATTEND Radiology Radiation Oncology
DX: Z51.0 Encounter for antineoplastic radiation therapy (principal); C61 Malignant neoplasm of prostate
CPT/HCPCS: 77290; 77295